=== PATIENT | male | born 1955 | race Caucasian/White ===

== ENCOUNTER 2017-01-24 14:15 | Inpatient (IN) | payer BC, OTHER ==
[~2017-01-24] VITALS: Ht 170.2 cm; Wt 84.8 kg
[~2017-01-24 14:15] MED LIST: AMLO1TAB PO; ASP81TEC PO; AVOD0.5CAP PO
--- OUTSIDE RECORDS SUMMARY | 2017-01-24 14:21 | XMS REPORT ---
Author Author FRANKIE RANKIN Organization eClinicalWorks Address Unknown Phone Unavailable Care Team Providers Care Customer Care Voice Consultant Name Role Phone FRANKIE RANKIN CP Unavailable Allergies No Known Allergies Problems Problem Type Condition ICD-9 Code Onset Dates Condition Status Problem Unspecified local infection of skin and subcutaneous tissue 686.9 Active Problem Cellulitis and abscess of trunk 682.2 Active Problem Lumbago 724.2 Active Problem Unspecified essential hypertension 401.9 Active Problem Other and unspecified hyperlipidemia 272.4 Active Problem Pain in joint, ankle and foot 719.47 Active Problem Elevated prostate specific antigen (PSA) 790.93 Active Problem Need for prophylactic vaccination and inoculation, Influenza V04.81 Active Problem Cough 786.2 Active Problem Other general medical examination for administrative purposes V70.3 Active Problem Herpes zoster without mention of complication 053.9 Active Problem Hyperplasia of prostate, unspecified, without urinary obstruction and other lower urinary tract symptoms [LUTS] 600.90 Active Problem Swelling, mass, or lump in head and neck 784.2 Active Assessment Dental examination V72.2 Active Problem Acute pharyngitis 462 Active Medications No Known Medications Procedures Procedure Coding System Code Date Dental no charge CPT-4 D0099 Nov 15, 2014 Results No Known Results Summary Purpose [employer] Submission
--- OUTSIDE RECORDS SUMMARY | 2017-01-24 14:21 | XMS REPORT ---
Author Author BENY ALY Organization eClinical[employer] Address Unknown Phone Unavailable Care Team Providers Care Food Safety Specialist Name Role Phone BENY ALY CP Unavailable Allergies No Known Allergies Problems Problem Type Condition Code Onset Dates Condition Status Problem Dental examination Z01.20 Active Problem Hypertension I10 Active Problem Myalgia M79.1 Active Problem Hyperplasia of prostate, unspecified, without urinary obstruction and other lower urinary tract symptoms [LUTS] 600.90 Active Problem Hyperlipidemia E78.5 Active Problem Anxiety F41.9 Active Medications No Known Medications Vital Signs Date/Time: Jan 16, 2016 Blood Pressure Diastolic 90 mmHg Blood Pressure Systolic 136 mmHg Height 66 in Results No Known Results Summary Purpose eClinicalWorks Submission
--- OUTSIDE RECORDS SUMMARY | 2017-01-24 14:21 | XMS REPORT ---
Author Author BENY ALY [facility] Address [address] [place] [address] Care Team Providers Care Allocations Clerk Name Role Phone BENY ALY Unavailable PROBLEMS Type Condition ICD9-CM Code [id number] Code Onset Dates Condition Status SNOMED Code Problem Anxiety F41.9 Active 23993291 Problem Benign non-nodular prostatic hyperplasia with lower urinary tract symptoms N40.1 Active 872666593 Problem Encounter for immunization Z23 Active 471143949 Problem Hyperlipidemia E78.5 Active 25759041 Problem Hypertension I10 Active 42555172 Problem Myalgia M79.1 Active 80331570 Problem Dental examination Z01.20 Active 472288500 ALLERGIES Substance Reaction Event Type Date Status N.K.D.A. Unknown Non Drug Allergy Apr, Unknown SOCIAL HISTORY No smoking Hx information available PLAN OF CARE Activity Details Follow Up 1 Year Reason: VITAL SIGNS Height 66 in 2016-04-06 Weight 194 lbs 2016-04-06 Temperature 98.0 degrees Fahrenheit 2016-04-06 Heart Rate 78 bpm 2016-04-06 Respiratory Rate 20 2016-04-06 BMI 31.31 kg/m2 2016-04-06 Blood pressure systolic 134 mmHg 2016-04-06 Blood pressure diastolic 78 mmHg 2016-04-06 MEDICATIONS Medication Instructions Dosage Frequency Start Date End Date Duration Status Flexeril Active Xanax 0.5 MG 1 tablet by Oral route 2 times per day PRN Feb, Active amitriptyline 25 mg 1-2 tablet by Oral route 1 time per day 24h Feb, Active Atorvastatin Calcium 80 MG Orally Once a day 1 tablet 24h Oct, Active Vitamin D 2000 UNIT Orally Once a day 1 tablet 24h Active Avodart 0.5 MG Orally Once a day 1 capsule 24h 30 Active Aspir-81 81 MG Orally Once a day 1 tablet 24h Active Amlodipine Besylate 10 mg Orally Once a day 1 tablet 24h Oct, 30 day(s) Active Cialis 5 MG 1 tablet Apr, 2 Oct, 2016 30 day(s) Active RESULTS No Results PROCEDURES Procedure Date Ordered Related Diagnosis Body Site Office Visit, Est Pt., Level 3 Apr 06, 2016 IMMUNIZATIONS No Known Immunizations
--- OUTSIDE RECORDS SUMMARY | 2017-01-24 14:21 | XMS REPORT ---
Author Author DOMITILA ANDERSEN [facility] Address [address] [place] [address] Care Team Providers Care Residential Real Estate Sales Manager Name Role Phone ANDERSEN DOMITILA Unavailable PROBLEMS Type Condition ICD9-CM Code [id number] Code Onset Dates Condition Status SNOMED Code Problem Anxiety F41.9 Active 19095214 Problem Benign non-nodular prostatic hyperplasia with lower urinary tract symptoms N40.1 Active 151958924 Problem Encounter for immunization Z23 Active 119806209 Problem Hyperlipidemia E78.5 Active 98462773 Problem Hypertension I10 Active 56423831 Problem Myalgia M79.1 Active 40401865 Problem Dental examination Z01.20 Active 068719399 ALLERGIES Substance Reaction Event Type Date Status N.K.D.A. Unknown Non Drug Allergy Apr, Unknown SOCIAL HISTORY No smoking Hx information available PLAN OF CARE Activity Details Follow Up 6 Months Reason:topher VITAL SIGNS Blood pressure systolic 121 mmHg 2016-04-09 Blood pressure diastolic 76 mmHg 2016-04-09 MEDICATIONS Medication Instructions Dosage Frequency Start Date End Date Duration Status amitriptyline 25 mg 1-2 tablet by Oral route 1 time per day 24h Feb, Active Xanax 0.5 MG 1 tablet by Oral route 2 times per day PRN Feb, Active Aspir-81 81 MG Orally Once a day 1 tablet 24h Active Avodart 0.5 MG Orally Once a day 1 capsule 24h 30 Active Vitamin D 2000 UNIT Orally Once a day 1 tablet 24h Active Flexeril Active Atorvastatin Calcium 80 MG Orally Once a day 1 tablet 24h Oct, Active Cialis 5 MG 1 tablet Apr, Oct, 30 day(s) Active Amlodipine Besylate 10 mg Orally Once a day 1 tablet 24h Oct, 30 day(s) Active RESULTS No Results PROCEDURES Procedure Date Ordered Related Diagnosis Body Site PROPHYLAXIS - ADULT Apr 09, 2016 Billing Notes on claim Apr 09, 2016 [employer] Employee/Board adjustment Apr 09, 2016 IMMUNIZATIONS No Known Immunizations
--- OUTSIDE RECORDS SUMMARY | 2017-01-24 14:21 | XMS REPORT ---
Author Author SIMON ROY [facility] eClinicalWorks Address Unknown Phone Unavailable Care Team Providers Care Camera Supervisor Name Role Phone SIMON ROY CP Unavailable Allergies, Adverse Reactions, Alerts Substance Reaction Event Type N.K.D.A. Info Not Available Non Drug Allergy Problems Problem Type Condition Code Onset Dates Condition Status Problem Other and unspecified hyperlipidemia 272.4 Active Problem Lumbago 724.2 Active Problem Unspecified essential hypertension 401.9 Active Problem Hyperplasia of prostate, unspecified, without urinary obstruction and other lower urinary tract symptoms [LUTS] 600.90 Active Assessment Strain of muscle, fascia and tendon of lower back, subsequent encounter S39.012D Active Medications Medication Code System Code Instructions Start Date End Date Status Dosage Xanax [facility] [address]-03 0.5 MG 1 TAB orally 2 times a day Feb 22, 2014 1 tablet by Oral route 2 times per day PRN amitriptyline [facility] [address]-65 25 mg Feb 26, 2014 1-2 tablet by Oral route 1 time per day Avodart [facility] [address]-03 0.5 MG Orally Once a day 1 capsule Aspir-[address] [facility] [address]-71 81 MG Orally Once a day 1 tablet Caduet [facility] [address]-22 10-80 MG Orally Once a day 1 tablet Vitamin D [facility] [address]-97 1000 UNIT Orally Once a day 1 tablet Cyclobenzaprine HCl [facility] [address]-09 10 MG Orally Three times a day JanMar 05, 2015 1 tablet Procedures Procedure Coding System Code Date Office Visit, Est Pt., Level 3 CPT-4 64422 Jan 04, 2015 Vital Signs Date/Time: Jan 04, 2015 Temperature 97.5 F Weight 200.5 lbs Height 66 in BMI 32.36 Index Blood Pressure Diastolic 82 mmHg Blood Pressure Systolic 118 mmHg Cardiac Monitoring Heart Rate 80 bpm Results No Known Results Summary Purpose eClinicalWorks Submission
--- OUTSIDE RECORDS SUMMARY | 2017-01-24 14:21 | XMS REPORT ---
Author Author BENY ALY [facility] eClinicalWorks Address Unknown Phone Unavailable Care Team Providers Care Picture Frames Inspector Name Role Phone BENY ALY CP Unavailable Allergies No Known Allergies Problems Problem Type Condition Code Onset Dates Condition Status Problem Dental examination Z01.20 Active Problem Hypertension I10 Active Problem Myalgia M79.1 Active Problem Hyperplasia of prostate, unspecified, without urinary obstruction and other lower urinary tract symptoms [LUTS] 600.90 Active Problem Hyperlipidemia E78.5 Active Problem Anxiety F41.9 Active Medications Medication Code System Code Instructions Start Date End Date Status Dosage Levaquin [facility] [address]-38 500 MG Orally Once a day October 14, 2015October 1 tablet Results No Known Results Summary Purpose eClinicalWorks Submission
--- OUTSIDE RECORDS SUMMARY | 2017-01-24 14:21 | XMS REPORT ---
Author Author FRANKIE RANKIN Organization eClinicalWorks Address Unknown Phone Unavailable Care Team Providers Care Agent Telegrapher Name Role Phone FRANKIE RANKIN CP Unavailable [...] Medications Procedures Procedure Coding System Code Date Billing Notes on claim CPT-4 EC109 Dec 04, 2014 [employer] Employee/Board adjustment CPT-4 [facility] Dec 04, 2014 Dental no charge CPT-4 D0099 Dec 04, 2014 Results No Known Results Summary Purpose eClinicalWorks Submission
--- OUTSIDE RECORDS SUMMARY | 2017-01-24 14:22 | XMS REPORT ---
Author Author BENY ALY [facility] eClinicalWorks Address Unknown Phone Unavailable Care Team Providers Care Director Of Market Analysis Name Role Phone BENY ALY CP Unavailable Allergies No Known Allergies Problems Problem Type Condition Code Onset Dates Condition Status Problem Other and unspecified hyperlipidemia 272.4 Active Problem Lumbago 724.2 Active Problem Unspecified essential hypertension 401.9 Active Problem Hyperplasia of prostate, unspecified, without urinary obstruction and other lower urinary tract symptoms [LUTS] 600.90 Active Medications Medication Code System Code Instructions Start Date End Date Status Dosage Xanax [facility] [address]-38 0.5 MG 1 TAB orally 2 times a day Feb 22, 2014 1 tablet by Oral route 2 times per day PRN Amlodipine Besylate [facility] [address]-80 10 MG Orally Once a day Mar 31, 2015 1 tablet Atorvastatin Calcium [facility] [address]-07 80 MG Orally Once a day Mar 31, 2015 1 tablet Results No Known Results Summary Purpose eClinicalWorks Submission
--- OUTSIDE RECORDS SUMMARY | 2017-01-24 14:22 | XMS REPORT ---
Author Author BENY ALY [facility] eClinicalWorks Address Unknown Phone Unavailable Care Team Providers Care Caravan Park And Camping Ground Manager Name Role Phone BENY ALY CP Unavailable [...] Instructions Start Date End Date Status Dosage Hydrocodone-Acetaminophen [facility] [address]-71 5-325 MG Orally every 6 hrs Feb 06, 2015 1 tablet as needed Results No Known Results Summary Purpose eClinicalWorks Submission
--- OUTSIDE RECORDS SUMMARY | 2017-01-24 14:22 | XMS REPORT ---
Author Author FRANKIE RANKIN Organization eClinicalWorks Address Unknown Phone Unavailable Care Team Providers Care Service Administrator Name Role Phone FRANKIE RANKIN CP Unavailable [...] Date Dental no charge CPT-4 D0099 Nov 08, 2014 Results No Known Results Summary Purpose [employer] Submission
--- OUTSIDE RECORDS SUMMARY | 2017-01-24 14:22 | XMS REPORT ---
Author Author BENY ALY [facility] eClinicalWorks Address Unknown Phone Unavailable Care Team Providers Care Team Cdl Driver Name Role Phone BENY ALY CP Unavailable Allergies No Known Allergies Problems Problem Type Condition Code Onset Dates Condition Status Problem Other and unspecified hyperlipidemia 272.4 Active Problem Lumbago 724.2 Active Problem Unspecified essential hypertension 401.9 Active Problem Hyperplasia of prostate, unspecified, without urinary obstruction and other lower urinary tract symptoms [LUTS] 600.90 Active Assessment Needs flu shot Z23 Active Medications No Known Medications Procedures Procedure Coding System Code Date SINGLE IMMUNIZATION ADMIN CPT-4 37927 Jan 08, 2015 FLUARIX QUAD (3 & UP)-GSK-2014 CPT-4 26333 Jan 08, 2015 Results No Known Results Immunizations Vaccine Administration Date FLUARIX QUAD (3 & UP)-GSK-2014Jan 08, 2015 Summary Purpose eClinicalWorks Submission
--- OUTSIDE RECORDS SUMMARY | 2017-01-24 14:22 | XMS REPORT ---
Author Author EVANGELINA HIGGINS Organization eClinicalWorks Address Unknown Phone Unavailable Care Team Providers Care Traffic Agent Name Role Phone EVANGELINA HIGGINS CP Unavailable Allergies No Known Allergies Problems [...] Date Dental no charge CPT-4 D0099 Nov 11, 2014 Results No Known Results Summary Purpose eClinicalWorks Submission
--- OUTSIDE RECORDS SUMMARY | 2017-01-24 14:22 | XMS REPORT ---
Author Author BENY ALY [facility] eClinicalWorks Address Unknown Phone Unavailable Care Team Providers Care Salvager Name Role Phone BENY ALY CP Unavailable [...] in head and neck 784.2 Active Assessment Unspecified essential hypertension 401.9 Active Problem Acute pharyngitis 462 Active Medications No Known Medications Procedures Procedure Coding System Code Date ASSAY OF PSA, TOTAL CPT-4 11601 Dec 17, 2014 LIPID PANEL CPT-4 42071 Dec 17, 2014 COMPREHEN METABOLIC PANEL CPT-4 62265 Dec 17, 2014 VENIPUNCT, ROUTINE* CPT-4 34318 Dec 17, 2014 Results No Known Results Summary Purpose eClinicalWorks Submission
--- OUTSIDE RECORDS SUMMARY | 2017-01-24 14:22 | XMS REPORT ---
Author Author MARTI ANN [facility] eClinicalWorks Address Unknown Phone Unavailable Care Team Providers Care Air Tube Releaser Name Role Phone MARTI ANN CP Unavailable Allergies, Adverse Reactions, Alerts Substance Reaction Event Type N.K.D.A. Info Not Available Non Drug Allergy Problems Problem Type Condition Code Onset Dates Condition Status Problem Hyperplasia of prostate, unspecified, without urinary obstruction and other lower urinary tract symptoms [LUTS] 600.90 Active Assessment Acute upper respiratory infection, unspecified J06.9 Active Problem Hypertension I10 Active Problem Hyperlipidemia E78.5 Active Problem Dental examination Z01.20 Active Problem Other and unspecified hyperlipidemia 272.4 Active Problem Lumbago 724.2 Active Problem Anxiety F41.9 Active Problem Unspecified essential hypertension 401.9 Active Medications Medication Code System Code Instructions Start Date End Date Status Dosage Aspir-[address] [facility] [address]-58 81 MG Orally Once a day 1 tablet Vitamin D [facility] [address]-44 1000 UNIT Orally Once a day 1 tablet Promethazine-Codeine [facility] [address]-53 6.25-10 MG/5ML Orally every 6 hrs October 08, 2015 5 ml as needed Atorvastatin Calcium [facility] [address]-54 80 MG Orally Once a day October 29, [address] [facility] [address]-88 25 mg Once a day Feb 26, 2014 1-2 tablet by Oral route 1 time per day Xanax [facility] [address]-29 0.5 MG 1 TAB orally 2 times a day Feb 22, 2014 1 tablet by Oral route 2 times per day PRN Amlodipine Besylate [facility] [address]-84 10 MG Orally Once a day October 29, [address] [facility] [address]-79 10 MG Orally Once a day October 29, [address] [facility] [address]-33 0.5 MG Orally Once a day 1 capsule Procedures Procedure Coding System Code Date Office Visit, Est Pt., Level 3 CPT-4 30242 October 08, 2015 Vital Signs Date/Time: October 08, 2015 Cardiac Monitoring Heart Rate 88 bpm Weight 178.8 lbs Height 66 in Blood Pressure Diastolic 80 mmHg Blood Pressure Systolic 120 mmHg Results No Known Results Summary Purpose eClinicalWorks Submission
--- OUTSIDE RECORDS SUMMARY | 2017-01-24 14:22 | XMS REPORT ---
Author Author LINWOOD REED eClinicalWorks Address Unknown Phone Unavailable Care Team Providers Care Compliance Technician Name Role Phone LINWOOD REED CP Unavailable Allergies, Adverse Reactions, Alerts Substance Reaction Event Type N.K.D.A. Info Not Available Non Drug Allergy Problems Problem Type Condition Code Onset Dates Condition Status Problem Dental examination Z01.20 Active Problem Hypertension I10 Active Problem Myalgia M79.1 Active Problem Hyperplasia of prostate, unspecified, without urinary obstruction and other lower urinary tract symptoms [LUTS] 600.90 Active Assessment Dental examination Z01.20 Active Problem Hyperlipidemia E78.5 Active Problem Anxiety F41.9 Active Medications Medication Code System Code Instructions Start Date End Date Status Dosage Aspir-81 [facility] [address]-50 81 MG Orally Once a day 1 tablet Vitamin D [facility] [address]-25 1000 UNIT Orally Once a day 1 tablet Promethazine-Codeine [facility] [address]-28 6.25-10 MG/5ML Orally every 6 hrs October 08, 2015 5 ml as needed Levaquin [facility] [address]-88 500 MG Orally Once a day October 14, 2015October 1 tablet Avodart [facility] [address]-67 0.5 MG Orally Once a day 1 capsule Amlodipine Besylate [facility] [address]-95 10 MG Orally Once a day October 29, 2014 1 tablet Xanax [facility] [address]-42 0.5 MG 1 TAB orally 2 times a day Feb 22, 2014 1 tablet by Oral route 2 times per day PRN amitriptyline [facility] [address]-48 25 mg Once a day Feb 26, 2014 1-2 tablet by Oral route 1 time per day Atorvastatin Calcium [facility] [address]-53 80 MG Orally Once a day October 29, 2014 1 tablet Procedures Procedure Coding System Code Date Billing Notes on claim CPT-4 EC109 October 14, 2015 AMALGAM-TWO SURFACES PRIMARY/PERM CPT-4 D2150 October 14, 2015 Vital Signs Date/Time: October 14, 2015 Blood Pressure Diastolic 64 mmHg Blood Pressure Systolic 113 mmHg Results No Known Results Summary Purpose eClinicalWorks Submission
--- OUTSIDE RECORDS SUMMARY | 2017-01-24 14:22 | XMS REPORT ---
Author Author BENY ALY [facility] eClinicalWorks Address Unknown Phone Unavailable Care Team Providers Care Bread And Pastry Baker Name Role Phone BENY ALY CP Unavailable Allergies, Adverse Reactions, Alerts Substance Reaction Event Type N.K.D.A. Info Not Available Non Drug Allergy Problems Problem Type Condition Code Onset Dates Condition Status Problem Dental examination Z01.20 Active Problem Hypertension I10 Active Problem Myalgia M79.1 Active Problem Hyperplasia of prostate, unspecified, without urinary obstruction and other lower urinary tract symptoms [LUTS] 600.90 Active Assessment Myalgia M79.1 Active Problem Hyperlipidemia E78.5 Active Problem Anxiety F41.9 Active Medications Medication Code System Code Instructions Start Date End Date Status Dosage Promethazine-Codeine [facility] [address]-61 6.25-10 MG/5ML Orally every 6 hrs October 08, 2015 5 ml as needed Avodart [facility] [address]-16 0.5 MG Orally Once a day 1 capsule Aspir-81 [facility] [address]-55 81 MG Orally Once a day 1 tablet Atorvastatin Calcium [facility] [address]-20 80 MG Orally Once a day October 29, 2014 1 tablet Amlodipine Besylate [facility] [address]-21 10 MG Orally Once a day October 29, 2014 1 tablet Xanax [facility] [address]-31 0.5 MG 1 TAB orally 2 times a day Feb 22, 2014 1 tablet by Oral route 2 times per day PRN amitriptyline [facility] [address]-52 25 mg Once a day Feb 26, 2014 1-2 tablet by Oral route 1 time per day Vitamin D [facility] [address]-77 1000 UNIT Orally Once a day 1 tablet Procedures Procedure Coding System Code Date COMPLETE CBC W/AUTO DIFF WBC CPT-4 24442 October 13, 2015 VENIPUNCT, ROUTINE* CPT-4 81847 October 13, 2015 C-REACTIVE PROTEIN CPT-4 84856 October 13, 2015 Office Visit, Est Pt., Level 2 CPT-4 97905 October 13, 2015 Vital Signs Date/Time: October 13, 2015 Cardiac Monitoring Heart Rate 82 bpm Weight 178 lbs Height 66 in Blood Pressure Diastolic 78 mmHg Blood Pressure Systolic 118 mmHg Results No Known Results Summary Purpose eClinicalWorks Submission
--- OUTSIDE RECORDS SUMMARY | 2017-01-24 14:22 | XMS REPORT ---
Author Author MARTI ANN [facility] eClinicalWorks Address Unknown Phone Unavailable Care Team Providers Care Spinner Box Name Role Phone MARTI ANN CP Unavailable Allergies No Known Allergies Problems Problem Type Condition Code Onset Dates Condition Status Assessment Encounter for immunization Z23 Active Problem Myalgia M79.1 Active Problem Dental examination Z01.20 Active Problem Encounter for immunization Z23 Active Problem Anxiety F41.9 Active Problem Hyperplasia of prostate, unspecified, without urinary obstruction and other lower urinary tract symptoms [LUTS] 600.90 Active Problem Hypertension I10 Active Problem Hyperlipidemia E78.5 Active Medications No Known Medications Procedures Procedure Coding System Code Date SINGLE IMMUNIZATION ADMIN CPT-4 27975 Feb 03, 2016 FLUARIX QUAD P-FREE 3 AND UP .50 2015 CPT-4 38164 Feb 03, 2016 Results No Known Results Immunizations Vaccine Administration Date FLUARIX QUAD P-FREE 3 AND UP .50 2015Feb 03, 2016 Summary Purpose eClinicalWorks Submission
--- OUTSIDE RECORDS SUMMARY | 2017-01-24 14:22 | XMS REPORT ---
Author Author BENY ALY [facility] Address [address] [place] [address] Care Team Providers Care Fire Prevention Officer Name Role Phone BENY ALY Unavailable PROBLEMS Type Condition ICD9-CM Code [id number] Code Onset Dates Condition Status SNOMED Code Problem Anxiety F41.9 Active 86920287 Problem Benign non-nodular prostatic hyperplasia with lower urinary tract symptoms N40.1 Active 740071350 Problem Encounter for immunization Z23 Active 976033660 Problem Hyperlipidemia E78.5 Active 21433062 Problem Hypertension I10 Active 23036902 Problem Myalgia M79.1 Active 40636699 Problem Dental examination Z01.20 Active 770582555 ALLERGIES No Known Allergies SOCIAL HISTORY No smoking Hx information available PLAN OF CARE VITAL SIGNS MEDICATIONS No Known Medications RESULTS Name Result Date Reference Range PSA 2016-04-09 Prostate Specific Ag, Serum 1.3 0.0-4.0 CMP 2016-04-09 Glucose, Serum 87 65-99 BUN 13 6-24 Creatinine, Serum 1.07 0.76-1.27 eGFR If NonAfricn Am 76 >59 eGFR If Africn Am 87 >59 BUN/Creatinine Ratio 12 9-20 Sodium, Serum 144 134-144 Potassium, Serum 5.0 3.5-5.2 Chloride, Serum 101 96-106 Carbon Dioxide, Total 26 18-29 Calcium, Serum 9.7 8.7-10.2 Protein, Total, Serum 7.0 6.0-8.5 Albumin, Serum 4.4 3.5-5.5 Globulin, Total 2.6 1.5-4.5 A/G Ratio 1.7 1.1-2.5 Bilirubin, Total 0.4 0.0-1.2 Alkaline Phosphatase, S 76 39-117 AST (SGOT) 24 0-40 ALT (SGPT) 25 0-44 LIPID PANEL 2016-04-09 Cholesterol, Total 187 100-199 Triglycerides 165 0-149 HDL Cholesterol 50 >39 VLDL Cholesterol [place] 33 5-40 LDL Cholesterol Calc 104 0-99 PROCEDURES Procedure Date Ordered Related Diagnosis Body Site LIPID PANEL Apr 09, 2016 ASSAY OF PSA, TOTAL Apr 09, 2016 VENIPUNCT, ROUTINE* Apr 09, 2016 COMPREHEN METABOLIC PANEL Apr 09, 2016 IMMUNIZATIONS No Known Immunizations
--- OUTSIDE RECORDS SUMMARY | 2017-01-24 14:23 | XMS REPORT | Continuity of Care Document ---
Author Author [facility] Organization [facility] Address Unknown Phone Unavailable Allergies Active Description Code Type Severity Reaction Onset Reported/Identified Relationship to Patient Clinical Status Yes No Known Drug Allergies [id number] Drug Allergy Unknown N/ A 08/17/2013 Medications Problems Date Dx Coded Attending Type Code Diagnosis Diagnosed By 05/25/2008 300.00 ANXIETY DISORDER NOS 05/25/2008 300.00 ANXIETY DISORDER NOS 05/25/2008 300.00 ANXIETY DISORDER NOS 05/25/2008 WENDY GILLILAND DO 300.00 ANXIETY DISORDER NOS 05/25/2008 MARTI ANN APRN 300.00 ANXIETY DISORDER NOS 05/25/2008 BENY ALY MD 300.00 ANXIETY DISORDER NOS 05/25/2008 JEFFREY MONTELONGO APRN 300.00 ANXIETY DISORDER NOS 05/25/2008 WENDY GILLILAND DO 300.00 ANXIETY DISORDER NOS 05/25/2008 BENY ALY MD 300.00 ANXIETY DISORDER NOS 07/30/2009 V70.0 GENERAL MEDICAL EXAM, ROUTINE, AT HEALTH CARE FACILITY 07/30/2009 V70.0 GENERAL MEDICAL EXAM, ROUTINE, AT HEALTH CARE FACILITY 07/30/2009 V70.0 GENERAL MEDICAL EXAM, ROUTINE, AT HEALTH CARE FACILITY 07/30/2009 WENDY GILLILAND DO V70.0 GENERAL MEDICAL EXAM, ROUTINE, AT HEALTH CARE FACILITY 07/30/2009 MARTI ANN APRN V70.0 GENERAL MEDICAL EXAM, ROUTINE, AT HEALTH CARE FACILITY 07/30/2009 BENY ALY MD V70.0 GENERAL MEDICAL EXAM, ROUTINE, AT HEALTH CARE FACILITY 07/30/2009 JEFFREY MONTELONGO APRN V70.0 GENERAL MEDICAL EXAM, ROUTINE, AT HEALTH CARE FACILITY 07/30/2009 WENDY GILLILAND DO V70.0 GENERAL MEDICAL EXAM, ROUTINE, AT HEALTH CARE FACILITY 07/30/2009 BENY ALY MD V70.0 GENERAL MEDICAL EXAM, ROUTINE, AT HEALTH CARE FACILITY 02/25/2010 465.9 Upper Respiratory Infection 02/25/2010 465.9 Upper Respiratory Infection 02/25/2010 465.9 Upper Respiratory Infection 02/25/2010 WENDY GILLILAND DO 465.9 Upper Respiratory Infection 02/25/2010 MARTI ANN APRN 465.9 Upper Respiratory Infection 02/25/2010 BENY ALY MD 465.9 Upper Respiratory Infection 02/25/2010 JEFFREY MONTELONGO APRN S 465.9 Upper Respiratory Infection 02/25/2010 WENDY GILLILAND DO K 465.9 Upper Respiratory Infection 02/25/2010 BENY ALY MD 465.9 Upper Respiratory Infection 05/13/2010 883.0 Open Wound Of Fingers Without Complication 05/13/2010 883.0 Open Wound Of Fingers Without Complication 05/13/2010 883.0 Open Wound Of Fingers Without Complication 05/13/2010 WENDY GILLILAND DO 883.0 Open Wound Of Fingers Without Complication 05/13/2010 MARTI ANN APRN 883.0 Open Wound Of Fingers Without Complication 05/13/2010 BENY ALY MD 883.0 Open Wound Of Fingers Without Complication 05/13/2010 JEFFREY MONTELONGO APRN S 883.0 Open Wound Of Fingers Without Complication 05/13/2010 WENDY GILLILAND DO 883.0 Open Wound Of Fingers Without Complication 05/13/2010 BENY ALY MD 883.0 Open Wound Of Fingers Without Complication 02/27/2011 681.02 Onychia And Paronychia Of Finger 02/27/2011 681.02 Onychia And Paronychia Of Finger 02/27/2011 681.02 Onychia And Paronychia Of Finger 02/27/2011 WENDY GILLILAND DO 681.02 Onychia And Paronychia Of Finger 02/27/2011 MARTI ANN APRN 681.02 Onychia And Paronychia Of Finger 02/27/2011 BENY ALY MD 681.02 Onychia And Paronychia Of Finger 02/27/2011 JEFFREY MONTELONGO APRN S 681.02 Onychia And Paronychia Of Finger 02/27/2011 WENDY GILLILAND DO 681.02 Onychia And Paronychia Of Finger 02/27/2011 BENY ALY MD 681.02 Onychia And Paronychia Of Finger 04/30/2011 272.4 OTHER AND UNSPECIFIED HYPERLIPIDEMIA 04/30/2011 600.90 HYPERPLASIA OF PROSTATE UNSPECIFIED WITHOUT URINARY OBSTRUCTION AND OTHER LOWER URINARY TRACT SYMPTOMS (LUTS) 04/30/2011 272.4 OTHER AND UNSPECIFIED HYPERLIPIDEMIA 04/30/2011 600.90 HYPERPLASIA OF PROSTATE UNSPECIFIED WITHOUT URINARY OBSTRUCTION AND OTHER LOWER URINARY TRACT SYMPTOMS (LUTS) 04/30/2011 272.4 OTHER AND UNSPECIFIED HYPERLIPIDEMIA 04/30/2011 600.90 HYPERPLASIA OF PROSTATE UNSPECIFIED WITHOUT URINARY OBSTRUCTION AND OTHER LOWER URINARY TRACT SYMPTOMS (LUTS) 04/30/2011 WENDY GILLILAND DO K 272.4 OTHER AND UNSPECIFIED HYPERLIPIDEMIA 04/30/2011 WENDY GILLILAND DO K 600.90 HYPERPLASIA OF PROSTATE UNSPECIFIED WITHOUT URINARY OBSTRUCTION AND OTHER LOWER URINARY TRACT SYMPTOMS (LUTS) 04/30/2011 MARTI ANN APRN 272.4 OTHER AND UNSPECIFIED HYPERLIPIDEMIA 04/30/2011 MARTI ANN APRN 600.90 HYPERPLASIA OF PROSTATE UNSPECIFIED WITHOUT URINARY OBSTRUCTION AND OTHER LOWER URINARY TRACT SYMPTOMS (LUTS) 04/30/2011 BENY ALY MD 272.4 OTHER AND UNSPECIFIED HYPERLIPIDEMIA 04/30/2011 BENY ALY MD 600.90 HYPERPLASIA OF PROSTATE UNSPECIFIED WITHOUT URINARY OBSTRUCTION AND OTHER LOWER URINARY TRACT SYMPTOMS (LUTS) 04/30/2011 JEFFREY MONTELONGO APRN S 272.4 OTHER AND UNSPECIFIED HYPERLIPIDEMIA 04/30/2011 JEFFREY MONTELONGO APRN S 600.90 HYPERPLASIA OF PROSTATE UNSPECIFIED WITHOUT URINARY OBSTRUCTION AND OTHER LOWER URINARY TRACT SYMPTOMS (LUTS) 04/30/2011 WENDY GILLILAND DO 272.4 OTHER AND UNSPECIFIED HYPERLIPIDEMIA 04/30/2011 WENDY GILLILAND DO K 600.90 HYPERPLASIA OF PROSTATE UNSPECIFIED WITHOUT URINARY OBSTRUCTION AND OTHER LOWER URINARY TRACT SYMPTOMS (LUTS) 04/30/2011 BENY ALY MD 272.4 OTHER AND UNSPECIFIED HYPERLIPIDEMIA 04/30/2011 BENY ALY MD 600.90 HYPERPLASIA OF PROSTATE UNSPECIFIED WITHOUT URINARY OBSTRUCTION AND OTHER LOWER URINARY TRACT SYMPTOMS (LUTS) 05/07/2011 272.4 OTHER AND UNSPECIFIED HYPERLIPIDEMIA 05/07/2011 401.9 UNSPECIFIED ESSENTIAL HYPERTENSION 05/07/2011 272.4 OTHER AND UNSPECIFIED HYPERLIPIDEMIA 05/07/2011 401.9 UNSPECIFIED ESSENTIAL HYPERTENSION 05/07/2011 272.4 OTHER AND UNSPECIFIED HYPERLIPIDEMIA 05/07/2011 401.9 UNSPECIFIED ESSENTIAL HYPERTENSION 05/07/2011 GILLILAND DO, WENDY K 272.4 OTHER AND UNSPECIFIED HYPERLIPIDEMIA 05/07/2011 GILLILAND DO, WENDY K 401.9 UNSPECIFIED ESSENTIAL HYPERTENSION 05/07/2011 MARTI ANN APRN 272.4 OTHER AND UNSPECIFIED HYPERLIPIDEMIA 05/07/2011 MARTI ANN APRN 401.9 UNSPECIFIED ESSENTIAL HYPERTENSION 05/07/2011 BENY ALY MD 272.4 OTHER AND UNSPECIFIED HYPERLIPIDEMIA 05/07/2011 BENY ALY MD 401.9 UNSPECIFIED ESSENTIAL HYPERTENSION 05/07/2011 JEFFREY MONTELONGO APRN S 272.4 OTHER AND UNSPECIFIED HYPERLIPIDEMIA 05/07/2011 JEFFREY MONTELONGO APRN S 401.9 UNSPECIFIED ESSENTIAL HYPERTENSION 05/07/2011 GILLILAND DO WENDY K 272.4 OTHER AND UNSPECIFIED HYPERLIPIDEMIA 05/07/2011 GILLILAND DO WENDY K 401.9 UNSPECIFIED ESSENTIAL HYPERTENSION 05/07/2011 BENY ALY MD 272.4 OTHER AND UNSPECIFIED HYPERLIPIDEMIA 05/07/2011 BENY ALY MD 401.9 UNSPECIFIED ESSENTIAL HYPERTENSION 05/26/2011 462 sore throat 05/26/2011 462 sore throat 05/26/2011 462 sore throat 05/26/2011 GILLILAND DO, WENDY K 462 sore throat 05/26/2011 MARTI ANN APRN 462 sore throat 05/26/2011 BENY ALY MD 462 SORE THROAT 05/26/2011 JEFFREY MONTELONGO APRN S 462 SORE THROAT 05/26/2011 GILLILAND DO WENDY K 462 SORE THROAT 05/26/2011 BENY ALY MD 462 SORE THROAT 06/09/2011 786.2 COUGH 06/09/2011 786.2 COUGH 06/09/2011 786.2 COUGH 06/09/2011 GILLILAND DO WENDY K 786.2 COUGH 06/09/2011 MARTI ANN APRN 786.2 COUGH 06/09/2011 BENY ALY MD 786.2 COUGH 06/09/2011 JEFFREY MONTELONGO APRN S 786.2 COUGH 06/09/2011 GILLILAND DO WENDY K 786.2 COUGH 06/09/2011 BENY ALY MD 786.2 COUGH 08/12/2011 V70.3 OTHER GENERAL MEDICAL EXAMINATION FOR ADMINISTRATIVE PURPOSES 08/12/2011 V70.3 OTHER GENERAL MEDICAL EXAMINATION FOR ADMINISTRATIVE PURPOSES 08/12/2011 V70.3 OTHER GENERAL MEDICAL EXAMINATION FOR ADMINISTRATIVE PURPOSES 08/12/2011 WENDY GILLILAND DO V70.3 OTHER GENERAL MEDICAL EXAMINATION FOR ADMINISTRATIVE PURPOSES 08/12/2011 MARTI ANN APRN V70.3 OTHER GENERAL MEDICAL EXAMINATION FOR ADMINISTRATIVE PURPOSES 08/12/2011 BENY ALY MD V70.3 OTHER GENERAL MEDICAL EXAMINATION FOR ADMINISTRATIVE PURPOSES 08/12/2011 JEFFREY MONTELONGO APRN V70.3 OTHER GENERAL MEDICAL EXAMINATION FOR ADMINISTRATIVE PURPOSES 08/12/2011 WENDY GILLILAND DO V70.3 OTHER GENERAL MEDICAL EXAMINATION FOR ADMINISTRATIVE PURPOSES 08/12/2011 BENY ALY MD V70.3 OTHER GENERAL MEDICAL EXAMINATION FOR ADMINISTRATIVE PURPOSES 09/02/2011 053.9 HERPES ZOSTER (SHINGLES) 09/02/2011 053.9 HERPES ZOSTER (SHINGLES) 09/02/2011 053.9 HERPES ZOSTER (SHINGLES) 09/02/2011 WENDY GILLILAND DO 053.9 HERPES ZOSTER (SHINGLES) 09/02/2011 MARTI ANN APRN 053.9 HERPES ZOSTER (SHINGLES) 09/02/2011 BENY ALY MD 053.9 HERPES ZOSTER (SHINGLES) 09/02/2011 JEFFREY MONTELONGO APRN 053.9 HERPES ZOSTER (SHINGLES) 09/02/2011 WENDY GILLILAND DO 053.9 HERPES ZOSTER (SHINGLES) 09/02/2011 BENY ALY MD 053.9 HERPES ZOSTER (SHINGLES) 11/23/2011 724.2 LUMBAGO 11/23/2011 724.2 LUMBAGO 11/23/2011 724.2 LUMBAGO 11/23/2011 WENDY GILLILAND DO 724.2 LUMBAGO 11/23/2011 MARTI ANN APRN 724.2 LUMBAGO 11/23/2011 BENY ALY MD 724.2 LUMBAGO 11/23/2011 JEFFREY MONTELONGO APRN 724.2 LUMBAGO 11/23/2011 WENDY GILLILAND DO 724.2 LUMBAGO 11/23/2011 BENY ALY MD 724.2 LUMBAGO 12/21/2011 682.2 CELLULITIS AND ABSCESS OF TRUNK 12/21/2011 682.2 CELLULITIS AND ABSCESS OF TRUNK 12/21/2011 682.2 CELLULITIS AND ABSCESS OF TRUNK 12/21/2011 WENDY GILLILAND DO 682.2 CELLULITIS AND ABSCESS OF TRUNK 12/21/2011 MARTI ANN APRN 682.2 CELLULITIS AND ABSCESS OF TRUNK 12/21/2011 BENY ALY MD 682.2 CELLULITIS AND ABSCESS OF TRUNK 12/21/2011 JEFFREY MONTELONGO APRN 682.2 CELLULITIS AND ABSCESS OF TRUNK 12/21/2011 WENDY GILLILAND DO 682.2 CELLULITIS AND ABSCESS OF TRUNK 12/21/2011 BENY ALY MD 682.2 CELLULITIS AND ABSCESS OF TRUNK 01/26/2012 V04.81 FLU DX (3 YRS AND ABOVE, IM) 01/26/2012 V04.81 FLU DX (3 YRS AND ABOVE, IM) 01/26/2012 V04.81 FLU DX (3 YRS AND ABOVE, IM) 01/26/2012 WENDY GILLILAND DO V04.81 FLU DX (3 YRS AND ABOVE, IM) 01/26/2012 MARTI ANN APRN V04.81 FLU DX (3 YRS AND ABOVE, IM) 01/26/2012 BENY ALY MD V04.81 FLU DX (3 YRS AND ABOVE, IM) 01/26/2012 JEFFREY MONTELONGO APRN V04.81 FLU DX (3 YRS AND ABOVE, IM) 01/26/2012 WENDY GILLILAND DO V04.81 FLU DX (3 YRS AND ABOVE, IM) 01/26/2012 BENY ALY MD V04.81 FLU DX (3 YRS AND ABOVE, IM) 08/16/2012 790.93 PSA ELEVATED 08/16/2012 WENDY GILLILAND DO 790.93 PSA ELEVATED 08/16/2012 MARTI ANN APRN 790.93 PSA ELEVATED 08/16/2012 BENY ALY MD 790.93 PSA ELEVATED 08/16/2012 JEFFREY MONTELONGO APRN 790.93 PSA ELEVATED 08/16/2012 WENDY GILLILAND DO 790.93 PSA ELEVATED 08/16/2012 BENY ALY MD 790.93 PSA ELEVATED 08/17/2013 Ot 455.0 08/17/2013 Ot 562.10 08/17/2013 Ot V76.51 09/03/2013 JEFFREY MONTELONGO APRN 719.47 PAIN IN JOINT INVOLVING ANKLE AND FOOT 09/03/2013 WENDY GILLILAND DO 719.47 PAIN IN JOINT INVOLVING ANKLE AND FOOT 09/03/2013 BENY ALY MD 719.47 PAIN IN JOINT INVOLVING ANKLE AND FOOT 01/18/2014 WENDY GILLILAND DO V04.81 FLU SHOT 01/18/2014 BENY ALY MD V04.81 FLU SHOT 02/22/2014 BENY ALY MD 686.9 UNSPECIFIED LOCAL INFECTION OF SKIN AND SUBCUTANEOUS TISSUE 05/30/2014 Ot V72.84 Procedures Code Description [place] [address] ROUTINE VENIPUNCTURE 08/16/2012 24636 PSA TOTAL 2012 G0008 FLU ADMINISTRATION (MEDICARE ONLY) 01/22/2013 Internal Enzo Guy 05/15/2013 99341 XRAY FOOT LEFT COMP MIN 3 VIEWS 09/03/2013 Results Encounters ACCT No. Visit Date/Time Discharge Status Pt. Type Provider Facility Loc./Unit Complaint [id number] 08/17/2013 07:02:00 2013 10:10:00 DIS Outpatient [id number] 08/15/2013 07:21:00 2013 23:59:59 CLS Outpatient [id number] 05/30/2014 10:28:00 Document Registration [id number] 02/22/2014 15:04:00 02/22/2014 23: 59:59 CLS Outpatient BENY ALY MD [id number] 01/18/2014 12:56:00 01/18/2014 23: 59:59 CLS Outpatient WENDY GILLILAND DO [id number] 09/03/2013 12:16:00 09/03/2013 23: 59:59 CLS Outpatient JEFFREY MONTELONGO APRN [id number] 05/15/2013 08:12:00 05/15/2013 23: 59:59 CLS Outpatient BENY ALY MD [id number] 02/06/2013 12:57:00 02/06/2013 23: 59:59 CLS Outpatient MARTI ANN APRN [id number] 01/22/2013 16:13:00 01/22/2013 23: 59:59 CLS Outpatient WENDY GILLILAND DO [id number] 05/05/2012 08:01:00 05/05/2012 23: 59:59 CLS Outpatient [id number] 08/16/2012 13:15:00 Document Registration [id number] 07/19/2012 13:44:00 Document Registration
[2017-01-24 14:49] LABS: BASOPHILS # (AUTO) 0.1 10^3/uL (0.0-0.1); BASOPHILS % (AUTO) 1 % (0-10); EOSINOPHILS # (AUTO) 0.1 10^3/uL (0.0-0.3); EOSINOPHILS % (AUTO) 1 % (0-10); LYMPHOCYTES # (AUTO) 2.7 X 10^3 (1.0-4.0); LYMPHOCYTES % (AUTO) 13 % (12-44); MEAN CORPUSCULAR HEMOGLOBIN 29 PG (25-34); MEAN CORPUSCULAR HGB CONC 33 G/DL (32-36); MEAN CORPUSCULAR VOLUME 89 FL (80-99); MEAN PLATELET VOLUME 9.6 FL (7.4-10.4); MONOCYTES # (AUTO) 1.1 X 10^3 (0.0-1.0); MONOCYTES % (AUTO) 6 % (0-12); NEUTROPHILS % (AUTO) 80 % (42-75); PLATELET COUNT 302 10^3/uL (130-400); RED BLOOD COUNT 2.94 10^6/uL (4.35-5.85); RED CELL DISTRIBUTION WIDTH 12.7 % (10.0-14.5); WHITE BLOOD COUNT 19.9 10^3/uL (4.3-11.0)
[2017-01-24] MEDS ORDERED: ATOR80TA76 PO (14:51)
[2017-01-24] MEDS ORDERED: vit d (14:51)
[2017-01-24] MEDS ORDERED: AMLO10TA2 PO (14:51)
[2017-01-24 15:02] LABS: INR 1.1 (0.8-1.4); PROTHROMBIN TIME PATIENT 14.2 SEC (12.2-14.7)
--- NOTE | 2017-01-24 15:02 | ED GI ---
General Chief Complaint: Abdominal/GI Problems Stated Complaint: MULTIPLE COMPLAINTS Source of Information: Patient Exam Limitations: No Limitations History of Present Illness Time Seen By Provider: 14:25 Initial Comments Here with report of weakness, shortness of breath, significant amount of blood from the rectum over the last 24 hours. States that he's been using ibuprofen for tooth pain over the last week or so although it appears that it's only 4 mg twice daily. Denies having blood from rectum previously. Does have history of polyps on colonoscopy but has never had problems. States his stools are grossly bloody and/or black and he's had approximately 12 bowel movements like this. 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 Patient presents by EMS very pale and weak. Timing/Duration: 24 Hours Severity/Quality: Moderate, Severe Radiation: No Radiation Associated Symptoms: Nausea/Vomiting, Shortness of Air, Weakness Allergies and Home Medications Allergies Coded Allergies: No Known Drug Allergies (Unverified , 08/17/13) Home Medications Amlodipine Besylate 10 Mg Tablet, (Reported) Aspirin 81 Mg Tabec, 81 MG PO DAILY, (Reported) Atorvastatin Calcium 80 Mg Tablet, (Reported) Dutasteride 0.5 Mg Capsule, 0.5 MG PO, (Reported) [vit d] , (Reported) Review of Systems Constitutional: see HPI, chills, No fever, weakness EENTM: No Symptoms Reported Respiratory: See HPI, SOA With Exertion, Denies Wheezing Cardiovascular: Denies Chest Pain, Lightheadedness, Syncope Gastrointestinal: Denies Abdominal Pain, Nausea, Rectal Bleeding, Vomiting Genitourinary: No Symptoms Reported Musculoskeletal: no symptoms reported Skin: see HPI, change in color, No lesions Psychiatric/Neurological: Denies Headache, Weakness Endocrine: No Symptoms Reported Hematologic/Lymphatic: No Symptoms Reported All Other Systems Reviewed Negative Unless Noted: Yes Past Kwoldgg-Rtdhig-Donjps Hx Patient Social History Alcohol Use: Occasionally Uses Recreational Drug Use: No Smoking Status: Current Someday Smoker Type Used: Cigars Recent Foreign Travel: No Contact w/Someone Who Travel: No Immunizations Up To Date Date of Pneumonia Vaccine: Dec 18, 2009 Date of Influenza Vaccine: Jan 17, 2013 Surgeries History of Surgeries: Yes (hernia) Respiratory History of Respiratory Disorde: No Cardiovascular History of Cardiac Disorders: Yes Cardiac Disorders: High Cholesterol, Hypertension Neurological History of Neurological Disord: No Genitourinary History of Genitourinary Disor: Yes Genitourinary Disorders: Prostate Problems Gastrointestinal History of Gastrointestinal Di: No Musculoskeletal History of Musculoskeletal Dis: No Endocrine History of Endocrine Disorders: No Cancer History of Cancer: No Psychosocial History of Psychiatric Problem: No Reviewed Nursing Assessment Reviewed/Agree w Nursing PMH: Yes Family Medical History Significant Family History: No Pertinent Family Hx Physical Exam Vital Signs VS - Last 72 Hours, by Label 01/24/17 01/24/17 14:15 14:15 Temp 97.6 Pulse 92 Resp 18 B/P (MAP) 99/66 Pulse Ox 98 O2 Delivery Room Air Nasal Cannula O2 Flow Rate 2.00 Capillary Refill : General Appearance: WD/WN, mild distress (weakness) HEENT: PERRL/EOMI, pharynx normal, pale conjunctivae (R), pale conjunctivae (L) Neck: full range of motion, supple Respiratory: lungs clear, normal breath sounds Cardiovascular: no murmur, tachycardia Peripheral Pulses: 2+ Dorsalis Pedis (R), 2+ Left Dors-Pedis (L), 2+ Radial Pulses (R), 2+ Radial Pulses (L) Gastrointestinal: non tender, soft Extremities: non-tender, normal inspection Back: normal inspection, no CVA tenderness, no vertebral tenderness Neurologic/Psychiatric: alert, oriented x 3 Skin: warm/dry, pallor Progress/Results/Core Measures Results/Orders Lab Results Laboratory Tests Test 01/24/17 14:40 Range/Units White Blood Count 19.9 H 4.3-11.0 10^3/uL Red Blood Count 2.94 L 4.35-5.85 10^6/uL Hemoglobin 8.5 L 13.3-17.7 G/DL Hematocrit 26 L 40-54 % Mean Corpuscular Volume 89 80-99 FL Mean Corpuscular Hemoglobin 29 25-34 PG Mean Corpuscular Hemoglobin Concent 33 32-36 G/DL Red Cell Distribution Width 12.7 10.0-14.5 % Platelet Count 302 130-400 10^3/uL Mean Platelet Volume 9.6 7.4-10.4 FL Neutrophils (%) (Auto) 80 H 42-75 % Lymphocytes (%) (Auto) 13 12-44 % Monocytes (%) (Auto) 6 0-12 % Eosinophils (%) (Auto) 1 0-10 % Basophils (%) (Auto) 1 0-10 % Neutrophils # (Auto) 16.0 H 1.8-7.8 X 10^3 Lymphocytes # (Auto) 2.7 1.0-4.0 X 10^3 Monocytes # (Auto) 1.1 H 0.0-1.0 X 10^3 Eosinophils # (Auto) 0.1 0.0-0.3 10^3/uL Basophils # (Auto) 0.1 0.0-0.1 10^3/uL Neutrophils % (Manual) 82 % Lymphocytes % (Manual) 14 % Monocytes % (Manual) 4 % Polychromasia SLIGHT Prothrombin Time 14.2 12.2-14.7 SEC INR Comment 1.1 0.8-1.4 Activated Partial Thromboplast Time 25 24-35 SEC Sodium Level 138 135-145 MMOL/L Potassium Level 4.1 3.6-5.0 MMOL/L Chloride Level 108 H 98-107 MMOL/L Carbon Dioxide Level 20 L 21-32 MMOL/L Anion Gap 10 5-14 MMOL/L Blood Urea Nitrogen 17 7-18 MG/DL Creatinine 0.95 0.60-1.30 MG/DL Estimat Glomerular Filtration Rate > 60 BUN/Creatinine Ratio 18 Glucose Level 162 H 70-105 MG/DL Calcium Level 7.8 L 8.5-10.1 MG/DL Total Bilirubin 0.3 0.1-1.0 MG/DL Aspartate Amino Transf (AST/SGOT) 15 5-34 U/L Alanine Aminotransferase (ALT/SGPT) 19 0-55 U/L Alkaline Phosphatase 47 40-136 U/L Troponin I < 0.30 <0.30 NG/ML Total Protein 5.5 L 6.4-8.2 GM/DL Albumin 3.3 3.2-4.5 GM/DL My Orders Orders - VIANNEY BASSETT MD Cbc With Automated Diff (01/24/17 14:31) Comprehensive Metabolic Panel (01/24/17 14:31) Red Cells Leukocytes Reduced (01/24/17 14:31) Chest 1 View, Ap/Pa Only (01/24/17 14:31) Protime With Inr (01/24/17 14:31) Partial Thromboplastin Time (01/24/17 14:31) Troponin I (01/24/17 14:31) Ekg Tracing (01/24/17 14:31) O2 (01/24/17 14:31) Monitor-Rhythm Ecg Trace Only (01/24/17 14:31) Type And Screen (01/24/17 14:31) Manual Differential (01/24/17 14:40) Pantoprazole Injection (Protonix Injecti (01/24/17 15:15) Ns (Ivpb) (Sodium C... W/Pantoprazole In (01/24/17 15:15) Medications Given in ED Current Medications Medications Dose Ordered Sig/Casey Route Start Time Stop Time Status Last Admin Dose Admin Pantoprazole 80 mg ONCE ONCE IV 01/24/17 15:15 01/24/17 15:16 DC 01/24/17 15:19 80 MG Vital Signs/I&O Vital Sign - Last 12Hours 01/24/17 01/24/17 14:15 14:15 Temp 97.6 Pulse 92 Resp 18 B/P (MAP) 99/66 Pulse Ox 98 O2 Delivery Room Air Nasal Cannula O2 Flow Rate 2.00 Intake and Output 01/25/17 00:00 Intake Total 500 ml Balance 500 ml Progress Note : Progress Note Seen and evaluated. IV by EMS. Second IV initiated. Labs, EKG and chest x- ray ordered. Patient denies chest pain but had report of chest tightness on report from outside facility so we will check EKG and troponin. Type and cross for 4 units due to what appears to be fairly rapid blood loss. I did verify patient's previous hemoglobin at the clinic. Last year it was 15.2. 1500: Protonix 80 mg IV and 8 mg an hour drip initiated. Monitor patient. 1540: Discussed case with Dr. Odell. 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 I will discuss the case with Dr. Ac, on-call for [facility] for admission. ICU admission. Inpatient status. Dr. Odell will likely do scope tonight. I did discuss the case with Dr. Ac and she does accept patient for admission. Cardiology consulted due to chest pressure and single episode. I did discuss the case with Dr. Solo and he accepts patient in consult and will see him in the ICU. Findings and concerns discussed with patient and he agrees with admission. Inpatient status. ECG Initial ECG Impression Date: Jan 24, 2017 Initial ECG Impression Time: 14:52 Initial ECG Rate: 98 Initial ECG Rhythm: Normal Sinus, S.Tach Comment Sinus rhythm with rate of 98. Normal axis. No evidence of ST elevation LA. No previous available for comparison. Interpreted by me. Diagnostic Imaging Diagonstic Imaging: Xray Plain Films/CT/US/NM/MRI: chest Comments VIA [facility] [place], [place] NAME: ANDRES MCKINNEY [facility] REC#: [id number] PT STATUS: REG ER : 1955 PHYSICIAN: VIANNEY BASSETT MD ADMIT DATE: 01/24/17/ER Draft Date of Exam:01/24/17 CHEST 1 VIEW, AP/PA ONLY INDICATION: Syncope. Frontal chest obtained at 3:04 p.m. FINDINGS: Heart is normal in size. There is a retrocardiac air-fluid level compatible with hiatal hernia. There is no focal infiltrate or pneumothorax or pleural fluid. IMPRESSION: Retrocardiac air-fluid level is present compatible with a prominent hiatal hernia. There is no acute infiltrate or pleural fluid. Dictated on workstation # [id number] Dict: 01/24/17 1520 Trans: 01/24/17 1528 [facility] [id number] Interpreted by: NORMA RODRIGUES MD Electronically signed by: Departure Communication (Admissions) Time/Spoke to Admitting Phy: 15:40 Time/Spoke to Consulting Phy: 15:45 Impression Impression: Primary Impression: GI bleed Qualified Codes: K92.2 - Gastrointestinal hemorrhage, unspecified Additional Impressions: Chest pain Qualified Codes: R07.9 - Chest pain, unspecified Syncope Qualified Codes: R55 - Syncope and collapse Disposition: 09 ADMITTED INPATIENT Condition: Stable Admissions Decision to Admit Reason: Admit from ER (General) Decision to Admit/Date: Jan 24, 2017 Time/Decision to Admit Time: 15:59 Departure-Patient Inst. Referrals: BENY ALY MD (PCP/Family) Primary Care Physician VIANNEY BASSETT MD Jan 24, 2017 15:02
[2017-01-24 15:11] LABS: ALANINE AMINOTRANSFERASE 19 U/L (0-55); ALBUMIN 3.3 GM/DL (3.2-4.5); ANION GAP 10 MMOL/L (5-14); ASPARTATE AMINO TRANSFERASE 15 U/L (5-34); BILIRUBIN,TOTAL 0.3 MG/DL (0.1-1.0); BLOOD UREA NITROGEN 17 MG/DL (7-18); BUN/CREATININE RATIO 18; CALCIUM 7.8 MG/DL (8.5-10.1); CARBON DIOXIDE 20 MMOL/L (21-32); CHLORIDE 108 MMOL/L (98-107); CREATININE SERUM 0.95 MG/DL (0.60-1.30); GFR ESTIMATED > 60; GLUCOSE 162 MG/DL (70-105); POTASSIUM 4.1 MMOL/L (3.6-5.0); SODIUM 138 MMOL/L (135-145); TOTAL PROTEIN 5.5 GM/DL (6.4-8.2)
[2017-01-24] MEDS ORDERED: PANTOPRAZOLE INJECTION 200 MG in NS (IVPB) 50 ML IV SCH (15:15)
[2017-01-24] MEDS ORDERED: PANTOPRAZOLE 40 MG/10 ML (PROTONIX) VIAL IV ONE (15:15)
[2017-01-24 15:17] LABS: LYMPHOCYTES % (MANUAL) 14 %; NEUTROPHILS % (MANUAL) 82 %; POLYCHROMASIA SLIGHT; TROPONIN I < 0.30 NG/ML (<0.30)
--- NOTE | 2017-01-24 15:28 | Diagnostic Imaging Report ---
INDICATION: Syncope. Frontal chest obtained at 3:04 p.m. FINDINGS: Heart is normal in size. There is a retrocardiac air-fluid level compatible with hiatal hernia. There is no focal infiltrate or pneumothorax or pleural fluid. IMPRESSION: Retrocardiac air-fluid level is present compatible with a prominent hiatal hernia. There is no acute infiltrate or pleural fluid. Dictated by: Dictated on workstation # [id number]
--- OUTSIDE RECORDS SUMMARY | 2017-01-24 16:25 | XMS REPORT | Continuity of Care Document ---
Author Author [facility] Organization [facility] Address Unknown Phone Unavailable Allergies Active Description Code Type Severity Reaction Onset Reported/Identified Relationship to Patient Clinical Status Yes No Known Drug Allergies [id number] Drug Allergy Unknown N/ A 08/17/2013 Medications [...] DO WENDY K 462 SORE THROAT 05/26/2011 BNEY ALY MD 462 SORE THROAT 06/09/2011 786.2 [...] CELLULITIS AND ABSCESS OF TRUNK 12/21/2011 BENY AYL MD 682.2 CELLULITIS AND ABSCESS OF TRUNK [...] Procedures Code Description [place] [address] ROUTINE VENIPUNCTURE 08/16/2012 74081 PSA TOTAL 2012 G0008 FLU ADMINISTRATION (MEDICARE ONLY) 01/22/2013 Internal Enzo Guy 05/15/2013 82646 XRAY FOOT LEFT COMP MIN 3 VIEWS 09/03/2013 Results Encounters ACCT No. Visit Date/Time Discharge Status Pt. Type Provider Facility Loc./Unit Complaint [id number] 08/17/2013 07:02:00 2013 10:10:00 DIS Outpatient [id number] 08/15/2013 07:21:00 2013 23:59:59 CLS Outpatient [id number] 05/30/2014 10:28:00 Document Registration [id number] 02/22/2014 15:04:00 02/22/2014 23: 59:59 CLS Outpatient BENY ALY MD [id number] 01/18/2014 12:56:00 01/18/2014 23: 59:59 CLS Outpatient WENDY GILLILAND DO [id number] 09/03/2013 12:16:00 09/03/2013 23: 59:59 CLS Outpatient JEFFREY MONTELONGO APRN [id number] 05/15/2013 08:12:00 05/15/2013 23: 59:59 CLS Outpatient BENY ALY MD [id number] 02/06/2013 12:57:00 02/06/2013 23: 59:59 CLS Outpatient MARTI ANN APRN [id number] 01/22/2013 16:13:00 01/22/2013 23: 59:59 CLS Outpatient WENDY GILLILAND DO [id number] 05/05/2012 08:01:00 05/05/2012 23: 59:59 CLS Outpatient [id number] 08/16/2012 13:15:00 Document Registration [id number] 07/19/2012 13:44:00 Document Registration
[2017-01-24] MEDS ORDERED: EPINEPHrine INJECTION 1 MG/ML AMP ONE (16:34)
[2017-01-24] MEDS ORDERED: LACTATED RINGERS 1,000 ML IV ONE ×2 (16:53→18:02)
[2017-01-24] MEDS ORDERED: DUTA0.5C14 PO (17:14)
[2017-01-24] MEDS ORDERED: MIDAZOLAM 2 MG/2 ML (VERSED) VIAL ONE (17:19)
[2017-01-24] MEDS ORDERED: fentaNYL INJECTION 100 MCG/2 ML AMP ONE (17:20)
[2017-01-24] MEDS ORDERED: HURRICAINE EXT TUBE (BENZOCAINE) XX PRN (17:30)
[2017-01-24] MEDS ORDERED: ONDANSETRON 4 MG/2 ML (SDV) Z0FRAN IV PRN (17:30)
[2017-01-24] MEDS ORDERED: ASPI-983 PO (17:36)
[2017-01-24] MEDS ORDERED: IBUP-2055 PO (17:36)
[2017-01-24] MEDS ORDERED: AMIT25TA9 PO (17:36)
[2017-01-24] MEDS ORDERED: CHOL2000 PO (17:36)
[2017-01-24] MEDS ORDERED: ACET325T49 PO (17:36)
[2017-01-24] MEDS ORDERED: CATHETER FLUSH 10 ML SYR IV PRN (17:45)
[2017-01-24] MEDS ORDERED: morphine INJ 4 MG/ML 1 ML (VIAL/SYRINGE) IV PRN (17:45)
[2017-01-24] MEDS ORDERED: NITROGLYCERIN 0.4 MG SL TABS BTL 25'S SL PRN (17:45)
[2017-01-24] MEDS: PANTOPRAZOLE INJECTION 200 MG in NS (IVPB) 50 ML IV SCH (17:59)
[2017-01-24] MEDS: NS IV 1000 ML 1,000 ML IV SCH (18:00)
[2017-01-24] MEDS: fentaNYL INJECTION 100 MCG/2 ML AMP IVP PRN ×2 (18:05→18:20)
[2017-01-24] MEDS: MIDAZOLAM 2 MG/2 ML (VERSED) VIAL IVP PRN ×3 (18:07→18:16)
[2017-01-24] MEDS ORDERED: INFLUENZA TRIvalent 2017-2018 0.5 ML/45 MCG SYR IM ONE (18:15)
[2017-01-24] MEDS ORDERED: PROPOFOL DRIP (ICU) 100 ML IV ONE (18:28)
[2017-01-24 19:05] VITALS: BP 111/95
--- NOTE | 2017-01-24 19:15 | Anesthesia-Procedure Note ---
Procedure Start/Stop Time Date of Procedure: Jan 24, 2017 Start Time: 18:41 Brief History Called to ICU [address] for failed sedation with Dr[address] Odell. Patient is a 61 year old male in ICU for GI bleed and in need of EGD. 100 mg Fentanyl and 6mg Versed IV given in the ICU per RN and patient continues to fight. After obtaining brief history, I started a Propofol gtt with etcO2 monitoring. Pt tolerated procedure well. O2 5L/NC. reports history of heavy alcohol use and obstructive sleep apnea; however, the patient refuses to wear CPAP. I reported to Mirela Sampson RN , a total of 300 mg Propofol given. Stop Time: 19:01 VERONICA TORRES CRNA Jan 24, 2017 19:15
--- NOTE | 2017-01-24 19:21 | Consultation ---
History of Present Illness History of Present Illness Patient Consulted On(wilma/time) 01/24/17 19:16 Date Seen by Provider: Jan 24, 2017 Time Seen by Provider: 16:05 Reason for Visit: melena, diarrhea and syncopal episode History of Present Illness this gentleman has been on oral antibiotics to address infection associated with root canals of his teeth and was given ibuprofen 4 days ago. Over the course of last 2 days, he has developed fatigue diarrhea and melena. His symptoms became acute resulting in a syncopal episode this morning at the place of his work, prompting immediate evaluation and an ER visit. Acute anemia due to blood loss has been discovered, hemoglobin being 8.4. Intravenous Protonix infusion has been initiated and I been asked to see him regarding his GI bleeding. Allergies and Home Medications Allergies Coded Allergies: No Known Drug Allergies (Unverified , 08/17/13) Home Medications Acetaminophen 325 Mg Tablet, 325 MG PO BID, (Reported) Amitriptyline HCl 25 Mg Tablet, 25-50 MG PO HS PRN for SLEEP, (Reported) TAKES 1-2 OF A (25 MG) TABLET Amlodipine Besylate 10 Mg Tablet, 10 MG PO DAILY, (Reported) Aspirin 81 Mg Tablet.dr, 81 MG PO DAILY, (Reported) Atorvastatin Calcium 80 Mg Tablet, 80 MG PO DAILY, (Reported) Cholecalciferol (Vitamin D3) 2,000 Unit Capsule, 2,000 UNIT PO DAILY, (Reported) Dutasteride 0.5 Mg Capsule, 0.5 MG PO DAILY, (Reported) Ibuprofen 200 Mg Tablet, 600 MG PO BID, (Reported) TAKES 3 (200 MG) TABLETS Past Wmepdis-Xaegds-Srqgvg Hx Patient Social History Alcohol Use: Regular Use Number of Drinks Today: 0 Alcohol Beverage of Choice: Whiskey Recreational Drug Use: No Smoking Status: Current Someday Smoker Type Used: Cigars Recent Foreign Travel: No Contact w/Someone Who Travel: No Recent Infectious Disease Expo: No Recent Hopitalizations: No Immunizations Up To Date PED Vaccines UTD: No Date of Pneumonia Vaccine: Dec 18, 2009 Date of Influenza Vaccine: Jan 17, 2013 Seasonal Allergies Seasonal Allergies: No Surgeries History of Surgeries: Yes (inguinal hernia repair x3) Respiratory History of Respiratory Disorde: No Cardiovascular History of Cardiac Disorders: Yes Cardiac Disorders: High Cholesterol, Hypertension Neurological History of Neurological Disord: No Genitourinary History of Genitourinary Disor: Yes (enlarged prostate) Genitourinary Disorders: Prostate Problems Gastrointestinal History of Gastrointestinal Di: Yes Gastrointestinal Disorders: Diverticulosis, Hiatal Hernia Musculoskeletal History of Musculoskeletal Dis: No Endocrine History of Endocrine Disorders: No HEENT History of HEENT Disorders: No Cancer History of Cancer: No Psychosocial History of Psychiatric Problem: Yes Behavioral Health Disorders: Sleep Difficulties Integumentary History of Skin or Integumenta: No Blood Transfusions History of Blood Disorders: No Reviewed Nursing Assessment Reviewed/Agree w Nursing PMH: Yes Family Medical History Significant Family History: No Pertinent Family Hx Review of Systems-General Constitutional: diaphoresis, malaise, weakness Respiratory: no symptoms reported Cardiovascular: no symptoms reported Gastrointestinal: see HPI Genitourinary: no symptoms reported Musculoskeletal: no symptoms reported Skin: no symptoms reported Psychiatric/Neurological: No Symptoms Reported Physical Exam-General Problems Physical Exam Vital Signs Vital Sign - Last 12Hours 01/24/17 14:15 Temp 97.6 Pulse 92 Resp 18 B/P (MAP) 99/66 Pulse Ox 98 O2 Delivery Room Air O2 Flow Rate 2.00 Capillary Refill : Less Than 3 Seconds General Appearance: no apparent distress Neck: normal inspection Respiratory: lungs clear Cardiovascular: tachycardia Gastrointestinal: non tender, soft, other Rectal: deferred Extremities: normal inspection Neurologic/Psychiatric: alert, oriented x 3 Skin: warm/dry Comments surgical scars over both inguinal region with no recurrence of his hernia Assessment/Plan Assessment/Plan Admission Diagnosis/Plan gentleman with GI bleeding. Upper GI source more likely. Reasonable to perform an upper endoscopy this evening. He may require colonoscopy subsequently. Hemoglobin will be observed closely and transfusion instituted if below 8 g Clinical Quality Measures DVT/VTE Risk/Contraindication: Risk Factor Score Per Nursin RFS Level Per Nursing on Admit: 1=Low/No VTE PPX DARLENE MOTLEY MD Jan 24, 2017 7:21 pm
--- NOTE | 2017-01-24 19:22 | Conscious Sedation/ASA ---
Conscious Sedation Pre-Proced Time Reviewed: 16:15 ASA Class: 3 Airway Mallampati Classification: ([place] appropriate class) I. II. III, IV Lungs Heart ASA score ASA 1: a normal healthy patient ASA 2: a patient with a mild systemic disease (mid diabetes, controlled hypertension, obesity ASA 3: a patient with a severe systemic disease that limits activity (angina , COPD, prior Myocardial infarction) ASA 4: a patient with an incapacitating disease that is a constant threat to life (CHF, renal failure) ASA 5: a moribund patient not expected to survive 24 hrs. (ruptured aneurysm) ASA 6: a declared brain patient whose organs are being harvested. For emergent operations, add the letter E after the classification Grade 2 Sedation Plan: Discussed options with patient/fam Note The patient is an appropriate candidate to undergo the planned procedure, sedation, and anesthesia. The patient immediately re-assessed prior to indication. DARLENE MOTLEY MD Jan 24, 2017 7:21 pm
--- NOTE | 2017-01-24 19:27 | Endo Procedure Record ---
Endo Procedure Report Date of Procedure Jan 24, 2017 Surgeon (s) DARLENE MOTLEY MD Post Procedure/Op Diagnosis multiple distal gastric erosions with no active bleeding. A few erosions at the fundus. 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 No ulcer at the duodenum Procedure Performed EGD with sclerotherapy 4 Description of Procedure Anesthesia Type: Conscious Sedation Specimen(s) collected/removed none Description of the Procedure Indication for the procedure: This gentleman has been admitted with GI bleeding of unknown origin. Upper endoscopy was offered as the initial mode of evaluation. Informed consent was obtained after reviewing the procedure in detail. Description of the procedure:he was monitored in the ICU and placed in left lateral rectus position. Initially, conscious sedation was attempted using Versed and fentanyl by our nursing staff. Since he could not be sedated adequately, we had the UNIVERSITY RELATIONS DIRECTOR administered propofol infusion and achieve satisfactory sedation. The flexible gastroscope was introdu Nonbleeding small AV malformations about a millimeter in size at the fundus.shivani down the esophagus, past the stomach, into the third part of the duodenum. Findings: Esophagus: Hiatal hernia with no esophagitis. No varices were found. Stomach: 1. 3 acute erosions at the antrum possibly induced by ibuprofen with minimal erythema around. No active bleeding was encountered. Sclerotherapy was achieved using 1 in 10,000 epinephrine with adequate blanching 2. Nonbleeding linear erosion at the fundus where sclerotherapy was performed as well. 3. nonbleeding, small AV malformations at the fundus Duodenum: Normal He tolerated the procedure reasonably well and remained stable. Impression: GI bleeding: Unclear whether upper GI in origin at this point. Small erosions in the stomach, sclerotherapy completed. We'll continue Protonix infusion, initiate bowel preparation for colonoscopy in 48 hours. Copies To: HERLINDA NEIL DO Copies To: BENY ALY MD,DARLENE Leonardo MD Jan 24, 2017 7:27 pm
[2017-01-24] MEDS ORDERED: EPINEPHrine INJECTION 1 MG/ML AMP IV PRN (19:30)
[2017-01-24] MEDS ORDERED: MAGNESIUM CITRATE 300 ML BTL PO NR (19:30)
[2017-01-24] MEDS ORDERED: AMITRIPTYLINE 25 MG (ELAVIL) TAB PO PRN (19:30)
[2017-01-24 20:00] VITALS: BP 103/61
[2017-01-24 21:00] VITALS: BP 109/75
[2017-01-24 22:00] VITALS: BP 110/73
[2017-01-24] MEDS: CATHETER FLUSH 10 ML SYR IV SCH (22:00)
[2017-01-24 23:00] VITALS: BP 104/67
[2017-01-25] VITALS (30 sets, daily range): BP systolic 100–150; BP diastolic 66–90
[2017-01-25] MEDS: NS IV 1000 ML 1,000 ML IV SCH ×2 (01:54→15:23)
[2017-01-25 05:07] LABS: BASOPHILS # (AUTO) 0.1 10^3/uL (0.0-0.1); BASOPHILS % (AUTO) 0 % (0-10); EOSINOPHILS # (AUTO) 0.1 10^3/uL (0.0-0.3); EOSINOPHILS % (AUTO) 1 % (0-10); LYMPHOCYTES # (AUTO) 2.7 X 10^3 (1.0-4.0); LYMPHOCYTES % (AUTO) 19 % (12-44); MEAN CORPUSCULAR HEMOGLOBIN 29 PG (25-34); MEAN CORPUSCULAR HGB CONC 32 G/DL (32-36); MEAN CORPUSCULAR VOLUME 89 FL (80-99); MEAN PLATELET VOLUME 9.5 FL (7.4-10.4); MONOCYTES # (AUTO) 1.1 X 10^3 (0.0-1.0); MONOCYTES % (AUTO) 8 % (0-12); NEUTROPHILS % (AUTO) 72 % (42-75); PLATELET COUNT 267 10^3/uL (130-400); RED BLOOD COUNT 2.59 10^6/uL (4.35-5.85); RED CELL DISTRIBUTION WIDTH 12.8 % (10.0-14.5); WHITE BLOOD COUNT 13.9 10^3/uL (4.3-11.0)
[2017-01-25 05:25] LABS: ALANINE AMINOTRANSFERASE 19 U/L (0-55); ALBUMIN 3.1 GM/DL (3.2-4.5); ANION GAP 7 MMOL/L (5-14); ASPARTATE AMINO TRANSFERASE 15 U/L (5-34); BILIRUBIN,TOTAL 0.3 MG/DL (0.1-1.0); BLOOD UREA NITROGEN 13 MG/DL (7-18); BUN/CREATININE RATIO 17; CALCIUM 8.1 MG/DL (8.5-10.1); CARBON DIOXIDE 26 MMOL/L (21-32); CHLORIDE 107 MMOL/L (98-107); CREATININE SERUM 0.76 MG/DL (0.60-1.30); DIRECT LDL 56 MG/DL (1-129); GFR ESTIMATED > 60; GLUCOSE 81 MG/DL (70-105); POTASSIUM 4.5 MMOL/L (3.6-5.0); SODIUM 140 MMOL/L (135-145); TOTAL PROTEIN 5.2 GM/DL (6.4-8.2); TRIGLYCERIDES 187 MG/DL (<150); VLDL CHOLESTEROL 37 MG/DL (5-40)
[2017-01-25 05:33] LABS: MYOGLOBIN SERUM 54.2 NG/ML (10.0-92.0)
[2017-01-25] MEDS: CATHETER FLUSH 10 ML SYR IV SCH ×3 (06:07→21:07)
[2017-01-25] MEDS ORDERED: NS IV 500 ML 500 ML IV ONE (06:15)
[2017-01-25 06:25] LABS: CHOLESTEROL 113 MG/DL (< 200)
[2017-01-25] MEDS ORDERED: MAGNESIUM CITRATE 300 ML BTL PO NR ×3 (07:00→19:00)
--- NOTE | 2017-01-25 08:40 | History & Physicial (CHS) ---
HPI History of Present Illness: The patient is a 61-year-old male who presented to the clinic with complaints of diarrhea and blood in his stool, he was noted to be extremely pale as well as having had a syncopal episode. He was sent by ambulance to the emergency department where he was found to be severely anemic which was suspected to be due to a GI bleed based on his report of blood in his stool as no other obvious source of rik bleeding. General Surgery was consulted for immediate evaluate of the patient. Per records from the clinic, it appears the patient's baseline hemoglobin one year ago was 15.2, he denies having any previous episodes of bloody diarrhea similar to this. She is a generally healthy individual who works full-time for [employer], with past medical history that includes hypertension, hyperlipidemia, anxiety, BPH, and intermittent back pain Source: patient, family, RN/MD, old records Exam Limitations: no limitations Date seen by provider: Jan 25, 2017 Time Seen by Provider: 09:10 Attending Physician Paulo Breen MD PCP Paulo Breen MD Consult General Surgery Date of Admission Jan 24, 2017 at 15:50 Home Medications Home Medications Reviewed patient Home Medication Reconciliation Form Allergies Coded Allergies: No Known Drug Allergies (Unverified , 08/17/13) UQR-Bsyfwg-Pmnryc Hx Patient Social History Marrital Status: Living Status: lives at home with his Employed/Student: employed Alcohol Use: Regular Use Recreational Drug Use: No Smoking Status: Current Someday Smoker Type Used: Cigars 2nd Hand Smoke Exposure: No Recent Foreign Travel: No Contact w/other who traveled: No Recent Hopitalizations: No Recent Infectious Disease Expo: No Physical Abuse Screen: No Sexual Abuse: No Immunizations Up To Date Tetanus Booster (TDap): Unknown Date of Pneumonia Vaccine: Dec 18, 2009 Date of Influenza Vaccine: Jan 17, 2013 Past Medical History 1 hypertension 2 hyperlipidemia 3 anxiety 4 chronic low back pain 5 BPH Family Medical History Significant Family History: No Pertinent Family Hx Review of Systems ([employer]) Constitutional: diaphoresis, dizziness, weakness, other (syncope) EENTM: No ear pain, No eye pain, No epistaxis, No throat swelling Respiratory: No cough, No hemoptysis, No wheezing Cardiovascular: No chest pain, No edema, No Hx of Intervention, No palpitations , syncope Gastrointestinal: see HPI, diarrhea, melena Genitourinary: other (history of BPH) Musculoskeletal: back pain (chronic) Skin: see HPI, change in color (very pale) Psychiatric/Neurological: Anxiety Reviewed Test Results Reviewed Test Results Lab Laboratory Tests Test 01/24/17 14:40 01/24/17 20:10 01/25/17 04:20 01/25/17 17:01 Range/Units White Blood Count 19.9 H 13.9 H 4.3-11.0 10^3/uL Red Blood Count 2.94 L 2.59 L 4.35-5.85 10^6/uL Hemoglobin 8.5 L 8.1 L 7.4 L 13.3-17.7 G/DL Hematocrit 26 L 23 L 40-54 % Mean Corpuscular Volume 89 89 80-99 FL Mean Corpuscular Hemoglobin 29 29 25-34 PG Mean Corpuscular Hemoglobin Concent 33 32 32-36 G/DL Red Cell Distribution Width 12.7 12.8 10.0-14.5 % Platelet Count 302 267 130-400 10^3/uL Mean Platelet Volume 9.6 9.5 7.4-10.4 FL Neutrophils (%) (Auto) 80 H 72 42-75 % Lymphocytes (%) (Auto) 13 19 12-44 % Monocytes (%) (Auto) 6 8 0-12 % Eosinophils (%) (Auto) 1 1 0-10 % Basophils (%) (Auto) 1 0 0-10 % Neutrophils # (Auto) 16.0 H 10.0 H 1.8-7.8 X 10^3 Lymphocytes # (Auto) 2.7 2.7 1.0-4.0 X 10^3 Monocytes # (Auto) 1.1 H 1.1 H 0.0-1.0 X 10^3 Eosinophils # (Auto) 0.1 0.1 0.0-0.3 10^3/uL Basophils # (Auto) 0.1 0.1 0.0-0.1 10^3/uL Neutrophils % (Manual) 82 % Lymphocytes % (Manual) 14 % Monocytes % (Manual) 4 % Polychromasia SLIGHT Prothrombin Time 14.2 12.2-14.7 SEC INR Comment 1.1 0.8-1.4 Activated Partial Thromboplast Time 25 24-35 SEC Sodium Level 138 140 135-145 MMOL/L Potassium Level 4.1 4.5 3.6-5.0 MMOL/L Chloride Level 108 H 107 98-107 MMOL/L Carbon Dioxide Level 20 L 26 21-32 MMOL/L Anion Gap 10 7 5-14 MMOL/L Blood Urea Nitrogen 17 13 7-18 MG/DL Creatinine 0.95 0.76 0.60-1.30 MG/DL Estimat Glomerular Filtration Rate > 60 > 60 BUN/Creatinine Ratio 18 17 Glucose Level 162 H 81 70-105 MG/DL Calcium Level 7.8 L 8.1 L 8.5-10.1 MG/DL Total Bilirubin 0.3 0.3 0.1-1.0 MG/DL Aspartate Amino Transf (AST/SGOT) 15 15 5-34 U/L Alanine Aminotransferase (ALT/SGPT) 19 19 0-55 U/L Alkaline Phosphatase 47 45 40-136 U/L Troponin I < 0.30 < 0.30 <0.30 NG/ML Total Protein 5.5 L 5.2 L 6.4-8.2 GM/DL Albumin 3.3 3.1 L 3.2-4.5 GM/DL Myoglobin 54.2 10.0-92.0 NG/ML Triglycerides Level 187 H <150 MG/DL Cholesterol Level 113 < 200 MG/DL LDL Cholesterol Direct 56 1-129 MG/DL VLDL Cholesterol 37 5-40 MG/DL HDL Cholesterol 30 L 40-60 MG/DL Lab Scanned Report Transfusion Reaction Form [id number] Test 01/25/17 17:55 01/26/17 04:45 Range/Units Hemoglobin 12.6 #L 10.5 L 13.3-17.7 G/DL Hematocrit 36 L 32 L 40-54 % White Blood Count 12.7 H 4.3-11.0 10^3/uL Red Blood Count 3.62 L 4.35-5.85 10^6/uL Mean Corpuscular Volume 87 80-99 FL Mean Corpuscular Hemoglobin 29 25-34 PG Mean Corpuscular Hemoglobin Concent 33 32-36 G/DL Red Cell Distribution Width 14.2 10.0-14.5 % Platelet Count 264 130-400 10^3/uL Mean Platelet Volume 9.3 7.4-10.4 FL Neutrophils (%) (Auto) 73 42-75 % Lymphocytes (%) (Auto) 16 12-44 % Monocytes (%) (Auto) 9 0-12 % Eosinophils (%) (Auto) 2 0-10 % Basophils (%) (Auto) 0 0-10 % Neutrophils # (Auto) 9.3 H 1.8-7.8 X 10^3 Lymphocytes # (Auto) 2.1 1.0-4.0 X 10^3 Monocytes # (Auto) 1.1 H 0.0-1.0 X 10^3 Eosinophils # (Auto) 0.3 0.0-0.3 10^3/uL Basophils # (Auto) 0.1 0.0-0.1 10^3/uL Sodium Level 137 135-145 MMOL/L Potassium Level 3.8 3.6-5.0 MMOL/L Chloride Level 105 98-107 MMOL/L Carbon Dioxide Level 25 21-32 MMOL/L Anion Gap 7 5-14 MMOL/L Blood Urea Nitrogen 8 7-18 MG/DL Creatinine 0.81 0.60-1.30 MG/DL Estimat Glomerular Filtration Rate > 60 BUN/Creatinine Ratio 10 Glucose Level 88 70-105 MG/DL Calcium Level 8.0 L 8.5-10.1 MG/DL Phosphorus Level 2.3 2.3-4.7 MG/DL Magnesium Level 2.6 H 1.8-2.4 MG/DL Total Bilirubin 0.7 0.1-1.0 MG/DL Aspartate Amino Transf (AST/SGOT) 22 5-34 U/L Alanine Aminotransferase (ALT/SGPT) 20 0-55 U/L Alkaline Phosphatase 56 40-136 U/L Total Protein 6.2 L 6.4-8.2 GM/DL Albumin 3.6 3.2-4.5 GM/DL Physical Exam-(CHC) Physical Exam Vital Signs VS - Last 72 Hours, by Label 01/24/17 01/24/17 01/24/17 01/24/17 14:15 14:15 17:09 17:30 Temp 97.6 Pulse 92 92 89 Resp 18 18 B/P (MAP) 99/66 Pulse Ox 98 98 O2 Delivery Room Air Nasal Cannula O2 Flow Rate 2.00 01/24/17 01/24/17 01/24/17 01/24/17 18:00 18:32 18:50 19:05 Temp 97.6 Pulse 100 113 Resp 23 15 B/P (MAP) 109/75 111/95 Pulse Ox 100 92 92 O2 Delivery Nasal Cannula Nasal Cannula Nasal Cannula Nasal Cannula O2 Flow Rate 2.00 2.00 3.00 2.00 2.00 01/24/17 01/24/17 01/24/17 01/24/17 19:13 20:00 20:00 21:00 Pulse 107 100 100 Resp 6 23 B/P (MAP) 103/61 109/75 Pulse Ox 95 99 100 O2 Delivery Nasal Cannula Nasal Cannula Nasal Cannula O2 Flow Rate 3.00 2.00 2.00 2.00 2.00 01/24/17 01/24/17 01/24/17 01/25/17 22:00 22:30 23:00 00:00 Pulse 97 93 Resp 17 10 B/P (MAP) 110/73 104/67 Pulse Ox 95 99 99 95 O2 Delivery Nasal Cannula Nasal Cannula Nasal Cannula Nasal Cannula O2 Flow Rate 2.00 3.00 2.00 2.00 2.00 2.00 01/25/17 01/25/17 01/25/17 01/25/17 00:00 01:00 01:13 02:00 Temp 98.6 Pulse 89 83 87 94 Resp 17 14 28 B/P (MAP) 113/74 107/70 112/71 Pulse Ox 95 95 95 O2 Delivery Nasal Cannula Nasal Cannula Nasal Cannula O2 Flow Rate 2.00 2.00 2.00 2.00 2.00 2.00 01/25/17 01/25/17 01/25/17 01/25/17 02:32 03:00 04:00 04:00 Temp 99.2 Pulse 87 85 Resp 17 B/P (MAP) 100/66 112/69 Pulse Ox 94 95 97 O2 Delivery Nasal Cannula Nasal Cannula Nasal Cannula O2 Flow Rate 2.00 2.00 2.00 2.00 2.00 01/25/17 01/25/17 01/25/17 01/25/17 04:00 05:00 06:00 06:34 Temp 97.1 Pulse 95 92 93 Resp 17 16 B/P (MAP) 115/80 106/68 110/71 Pulse Ox 95 95 94 97 O2 Delivery Nasal Cannula Nasal Cannula Nasal Cannula Nasal Cannula O2 Flow Rate 2.00 2.00 2.00 2.00 2.00 2.00 01/25/17 01/25/17 01/25/17 01/25/17 06:40 06:49 07:00 07:00 Temp 98.2 Pulse 91 89 89 Resp 16 15 B/P (MAP) 114/73 116/70 Pulse Ox 97 96 96 O2 Delivery Nasal Cannula Nasal Cannula Nasal Cannula O2 Flow Rate 2.00 2.00 2.00 01/25/17 01/25/17 01/25/17 01/25/17 08:00 08:27 08:55 09:00 Temp 98.0 Pulse 87 90 98 Resp 15 18 22 B/P (MAP) 110/73 110/73 122/81 Pulse Ox 96 97 95 96 O2 Delivery Nasal Cannula Nasal Cannula Nasal Cannula Nasal Cannula O2 Flow Rate 2.00 2.00 2.00 2.00 01/25/17 01/25/17 01/25/17 01/25/17 10:00 10:21 10:51 11:00 Temp 98.5 Pulse 98 110 90 Resp 11 16 B/P (MAP) 113/72 113/72 150/84 Pulse Ox 95 92 97 94 O2 Delivery Nasal Cannula Nasal Cannula Nasal Cannula Nasal Cannula O2 Flow Rate 2.00 2.00 2.00 2.00 01/25/17 01/25/17 01/25/17 01/25/17 11:15 12:00 12:00 12:20 Temp 98.6 98.2 Pulse 90 98 Resp 24 B/P (MAP) 113/70 114/66 Pulse Ox 96 95 95 O2 Delivery Nasal Cannula Room Air Room Air Room Air O2 Flow Rate 2.00 01/25/17 01/25/17 01/25/17 01/25/17 12:43 13:00 13:00 14:00 Temp 98.2 Pulse 101 100 99 104 Resp 20 22 12 B/P (MAP) 114/66 116/88 120/76 Pulse Ox 94 94 O2 Delivery Nasal Cannula Room Air Room Air O2 Flow Rate 2.00 01/25/17 01/25/17 01/25/17 01/25/17 15:00 16:00 16:50 17:00 Temp 98.3 Pulse 97 93 102 Resp 19 19 28 B/P (MAP) 120/76 123/77 129/72 Pulse Ox 97 91 95 95 O2 Delivery Room Air Room Air Room Air Room Air 01/25/17 01/25/17 01/25/17 01/25/17 18:00 19:00 19:00 20:00 Temp 97.7 Pulse 106 102 102 101 Resp 16 19 17 B/P (MAP) 125/87 116/90 125/80 Pulse Ox 97 96 94 O2 Delivery Room Air Room Air Room Air 01/25/17 01/25/17 01/25/17 01/25/17 20:00 21:00 22:00 23:00 Pulse 107 87 83 Resp 21 21 15 B/P (MAP) 134/69 122/73 107/72 Pulse Ox 95 94 93 91 O2 Delivery Room Air Room Air Room Air Room Air 01/25/17 01/26/17 01/26/17 01/26/17 23:35 00:00 00:00 01:00 Temp 98.9 Pulse 84 80 101 Resp 17 B/P (MAP) 120/77 Pulse Ox 97 97 O2 Delivery Nasal Cannula Nasal Cannula Nasal Cannula O2 Flow Rate 2.00 2.00 2.00 01/26/17 01/26/17 01/26/17 01/26/17 01:00 02:00 03:00 04:00 Temp 98.9 Pulse 101 75 85 89 Resp 19 13 16 11 B/P (MAP) 125/81 108/76 110/63 120/79 Pulse Ox 94 92 97 96 O2 Delivery Nasal Cannula Nasal Cannula Nasal Cannula Nasal Cannula O2 Flow Rate 2.00 2.00 2.00 2.00 01/26/17 01/26/17 01/26/17 01/26/17 04:00 05:00 06:00 07:00 Pulse 88 79 80 Resp 16 16 16 B/P (MAP) 126/75 107/70 124/79 Pulse Ox 93 91 96 O2 Delivery Nasal Cannula Nasal Cannula Nasal Cannula Nasal Cannula O2 Flow Rate 2.00 2.00 2.00 2.00 01/26/17 01/26/17 01/26/17 01/26/17 07:00 07:28 08:00 08:50 Pulse 80 90 Resp 18 B/P (MAP) 115/76 Pulse Ox 97 O2 Delivery Nasal Cannula Nasal Cannula Nasal Cannula O2 Flow Rate 2.00 2.00 2.00 01/26/17 01/26/17 01/26/17 01/26/17 09:00 10:00 11:00 12:00 Pulse 99 97 83 88 Resp 19 13 25 13 B/P (MAP) 129/93 125/80 117/74 135/80 Pulse Ox 95 96 96 95 O2 Delivery Nasal Cannula Nasal Cannula Nasal Cannula Nasal Cannula O2 Flow Rate 2.00 2.00 2.00 2.00 01/26/17 01/26/17 01/26/17 01/26/17 12:05 13:45 16:00 19:54 Temp 98.4 98.0 99.3 Pulse 84 102 104 Resp 20 18 18 B/P (MAP) 123/70 112/61 122/68 Pulse Ox 93 93 95 O2 Delivery Room Air Nasal Cannula Nasal Cannula Nasal Cannula O2 Flow Rate 2.00 2.00 2.00 Capillary Refill : Less Than 3 Seconds General Appearance: no apparent distress Eyes: Bilateral Eye Conjunctivae Pale HEENT: PERRL/EOMI, pharynx normal, No scleral icterus (R), No scleral icterus ( L), pale conjunctivae (R), pale conjunctivae (L), No photophobia, No pharyngeal erythema Neck: non-tender, full range of motion, supple, normal inspection, No lymphadenopathy (R), No lymphadenopathy (L), No thyromegaly Respiratory: chest non-tender, lungs clear, normal breath sounds, no respiratory distress, no accessory muscle use, No crackles, No rales, No rhonchi , No stridor, No wheezing Cardiovascular: normal peripheral pulses, regular rate, rhythm (normal sinus rhythm per telemetry), no murmur, No bradycardia Peripheral Pulses: 2+ Dorsalis Pedis (R), 2+ Left Dors-Pedis (L), 2+ Radial Pulses (R), 2+ Radial Pulses (L) Gastrointestinal: normal bowel sounds, soft, no organomegaly, no pulsatile mass , No guarding, No rebound, tenderness (mild diffuse tenderness), No mass Rectal: deferred Back: normal inspection, no CVA tenderness, no vertebral tenderness Extremities: normal range of motion, non-tender, normal inspection, no calf tenderness, slow capillary refill, swelling (trace lower extremity edema) Neurologic/Psychiatric: leadership program associate II-XII nml as tested, no motor/sensory deficits, alert, normal mood/affect, oriented x 3, No facial droop, No depressed affect, No disoriented x 3 Skin: warm/dry, pallor Lymphatic: no adenopathy Clinical Quality Measures DVT/VTE Risk/Contraindication: Risk Factor Score Per Nursin RFS Level Per Nursing on Admit: 1=Low/No VTE PPX Assessment/Plan Assessment/Plan Admission Dx Syncope Severe anemia, suspected due to GI bleed Suspected GI bleed Diarrhea Hypertension Hyperlipidemia Anxiety BPH Chronic back pain Plan General surgery has been consulted and they took the patient for an urgent upper GI from the emergency department prior to his arrival in the intensive care unit. While the patient has been taking ibuprofen on a regular basis for the last few days and was noted to have a small hiatal hernia, it was not thought that this was the source of his significant blood loss. At this time the plan is to monitor his hemoglobin closely, and transfuse if his hemoglobin is less than 8.0. His hemoglobin this morning was 7.4, and the patient has received 1 unit of packed red blood cells and is getting ready to receive his second unit. He will have a CBC rechecked 4 hours after his second unit has been transfused. He has begun preparation for a colonoscopy that will be performed tomorrow morning by General Surgery. At this time we will continue to monitor his vital signs closely and will await results of further GI studies. We will monitor his lab values closely as well and transfuse if necessary. The patient's is present at bedside when he is examined this morning, and both the patient and his deny any questions for the primary team at this time. They've been made aware of how to contact us should they have any questions, concerns, or needs during their stay. Given that the patient has been admitted for an acute bleed, chemical DVT prophylaxis is being held at this time and SCDs are being used. The patient is also encouraged to ambulate to and from the bedside commode to help to decrease his risk of a clot. CONDITION: FAIR CODE STATUS: FULL HERLINDA NEIL DO Jan 25, 2017 08:40
[2017-01-25] MEDS: PANTOPRAZOLE INJECTION 200 MG in NS (IVPB) 50 ML IV SCH (08:55)
--- NOTE | 2017-01-25 09:59 | Consultation-Cardiology ---
HPI-Cardiology Cardiology Consultation: Date of Consultation 01/25/17 Time Seen by Provider: 09:50 Date of Admission 01-24-17 Attending Physician Paulo Breen MD Admitting Physician Paulo Breen MD Consulting Physician Danyel Solo MD, MA, FACP, FACC, [facility] [place], [facility] HPI: Chief Complaint: Dyspnea Near syncope Mr. Mckinney is a 61 year old male admitted to ICU 7 from the ED. He works at [employer]. His spouse is at the bedside. He reports he has been taking Ibuprofen 800mg at least BID for approx the last week d/t dental pain for which he is undergoing a root canal. He states on Tuesday he began to have diarrhea with dark red blood. It persisted into Tuesday. He states he has been having nausea, but no vomiting. He reports he made an appt with his PCP, Dr. Breen at [facility]. He states he has been feeling weak and tired for the last couple days. He reports the weakness continued to progress throughout the morning yesterday along with worsening dizziness. He states he was walking to his appt yesterday and the dizziness became more pronounced. He reports he began to feel short of breath. He states he felt as though he may pass out. He sat down promptly in a chair. He reports his blood pressure was taken at [facility] and noted to be low. He received IVF and EMS was called. He reports the shortness of breath was only during the time of the near syncopal episode. He has had no further shortness of breath. He did undergo upper endoscopy last night by Dr. Odell. He reports no CP or palpitations. No c/o LE edema. Review of Systems-Cardiology Review of Systems Constitutional: No chills, No fever, lightheadedness, tiredness, No weight loss , No weight gain Eyes: No vision change Ears/Nose/Throat: No recent hearing loss, other (dental pain) Respiratory: As described under HPI Cardiovascular: As described under HPI Gastrointestinal: As described under HPI Genitourinary: No burning, No dysuria, No hematuria Musculoskeletal: No joint pain, No muscle pain Skin: No rash, No ulcerations Psychiatric/Neurological: No anxiety, No depression, No seizure, No focal weakness Hematologic: No anemia All Other Systems Reviewed Negative Unless Noted: Yes PAG-Uufwgr-Zevtrl Hx Patient Social History Alcohol Use: Regular Use Recreational Drug Use: No Smoking Status: Current Someday Smoker Type Used: Cigars Recent Foreign Travel: No Recent Infectious Disease Expo: No Hospitalization with Isolation: Denies Physical Abuse Screen: No Sexual Abuse: No Immunizations Up To Date Date of Pneumonia Vaccine: Dec 18, 2009 Date of Influenza Vaccine: Jan 17, 2013 Past Medical History PMH As described under Assessment. Family Medical History Family Medical History: He does not report any family h/o premature CAD or SCD. Allergies and Home Medications Allergies Coded Allergies: No Known Drug Allergies (Unverified , 08/17/13) Home Medications Acetaminophen 325 Mg Tablet, 325 MG PO BID, (Reported) Amitriptyline HCl 25 Mg Tablet, 25-50 MG PO HS PRN for SLEEP, (Reported) TAKES 1-2 OF A (25 MG) TABLET Amlodipine Besylate 10 Mg Tablet, 10 MG PO DAILY, (Reported) Aspirin 81 Mg Tablet.dr, 81 MG PO DAILY, (Reported) Atorvastatin Calcium 80 Mg Tablet, 80 MG PO DAILY, (Reported) Cholecalciferol (Vitamin D3) 2,000 Unit Capsule, 2,000 UNIT PO DAILY, (Reported) Dutasteride 0.5 Mg Capsule, 0.5 MG PO DAILY, (Reported) Ibuprofen 200 Mg Tablet, 600 MG PO BID, (Reported) TAKES 3 (200 MG) TABLETS Physical Exam-Cardiology Physical Exam Vital Signs/I&O Vital Sign - Last 12Hours 01/26/17 01/26/17 01/26/17 01/26/17 01:00 01:00 02:00 03:00 Pulse 101 101 75 85 Resp 19 13 16 B/P (MAP) 125/81 108/76 110/63 Pulse Ox 94 92 97 O2 Delivery Nasal Cannula Nasal Cannula Nasal Cannula O2 Flow Rate 2.00 2.00 2.00 01/26/17 01/26/17 01/26/17 01/26/17 04:00 04:00 05:00 06:00 Temp 98.9 Pulse 89 88 79 Resp 11 16 16 B/P (MAP) 120/79 126/75 107/70 Pulse Ox 96 93 91 O2 Delivery Nasal Cannula Nasal Cannula Nasal Cannula Nasal Cannula O2 Flow Rate 2.00 2.00 2.00 2.00 01/26/17 01/26/17 01/26/17 01/26/17 07:00 07:00 07:28 08:00 Pulse 80 80 90 Resp 16 18 B/P (MAP) 124/79 115/76 Pulse Ox 96 97 O2 Delivery Nasal Cannula Nasal Cannula Nasal Cannula O2 Flow Rate 2.00 2.00 2.00 01/26/17 01/26/17 01/26/17 01/26/17 08:50 09:00 10:00 11:00 Pulse 99 97 83 Resp 19 13 25 B/P (MAP) 129/93 125/80 117/74 Pulse Ox 95 96 96 O2 Delivery Nasal Cannula Nasal Cannula Nasal Cannula Nasal Cannula O2 Flow Rate 2.00 2.00 2.00 2.00 Capillary Refill : Less Than 3 Seconds Constitutional: AAO x 3 HEENT: No discharge, No ulceration, No xanthelasmas are seen Neck: No carotid bruit, carotid pulses are 2 + bilaterally Respiratory: No accessory muscle use, No respiratory distress, chest expansion is symmetric, chest is bilaterally symmetric, lungs clear to percussion, lungs clear to auscultation Cardiovascular: regular rate-rhythm, No JVD, S1 and S2 Gastrointestinal: No tender, soft, round, audible bowel sounds (hyperactive) Rectal: deferred Extremities: no lower extremity edema bilateral Neurologic/Psychiatric: grossly intact Skin: pallor, No rash, No ulcerations Data Review Labs Laboratory Tests 01/25/17 17:01: Lab Scanned Report Transfusion Reaction Form 01/25/17 17:55: Hemoglobin 12.6#L, Hematocrit 36L 01/26/17 04:45: Hemoglobin 10.5L, Hematocrit 32L, White Blood Count 12.7H, Red Blood Count 3.62L , Mean Corpuscular Volume 87, Mean Corpuscular Hemoglobin 29, Mean Corpuscular Hemoglobin Concent 33, Red Cell Distribution Width 14.2, Platelet Count 264, Mean Platelet Volume 9.3, Neutrophils (%) (Auto) 73, Lymphocytes (%) (Auto) 16, Monocytes (%) (Auto) 9, Eosinophils (%) (Auto) 2, Basophils (%) (Auto) 0, Neutrophils # (Auto) 9.3H, Lymphocytes # (Auto) 2.1, Monocytes # (Auto) 1.1H, Eosinophils # (Auto) 0.3, Basophils # (Auto) 0.1, Sodium Level 137, Potassium Level 3.8, Chloride Level 105, Carbon Dioxide Level 25, Anion Gap 7, Blood Urea Nitrogen 8, Creatinine 0.81, Estimat Glomerular Filtration Rate > 60, BUN/ Creatinine Ratio 10, Glucose Level 88, Calcium Level 8.0L, Phosphorus Level 2.3 , Magnesium Level 2.6H, Total Bilirubin 0.7, Aspartate Amino Transf (AST/SGOT) 22, Alanine Aminotransferase (ALT/SGPT) 20, Alkaline Phosphatase 56, Total Protein 6.2L, Albumin 3.6 Radiology NAME: ANDRES MCKINNEY [facility] REC#: [id number] PT STATUS: ADM IN : 1955 PHYSICIAN: VIANNEY BASSETT MD ADMIT DATE: 01/24/17/ICU Signed Date of Exam: 01/24/17 CHEST 1 VIEW, AP/PA ONLY INDICATION: Syncope. Frontal chest obtained at 3:04 p.m. FINDINGS: Heart is normal in size. There is a retrocardiac air-fluid level compatible with hiatal hernia. There is no focal infiltrate or pneumothorax or pleural fluid. IMPRESSION: Retrocardiac air-fluid level is present compatible with a prominent hiatal hernia. There is no acute infiltrate or pleural fluid. Dictated by: Dictated on workstation # [id number] Dict: 01/24/17 1520 Trans: 01/24/17 170 Interpreted by: NORMA RODRIGUES MD Electronically signed by: NORMA RODRIGUES MD 01/24/17 1704 ECG Impression ECG Initial ECG Rhythm: Normal Sinus A/P-Cardiology Assessment/Admission Diagnosis Near syncope - likely d/t hypotension d/t hypovolemia Transient episode of dyspnea at time of near syncopal episode - likely related to anemia Echo of 01/25/17: LVEF 65-70%, no significant valvular heart disease, no pericardial effusion HTN HLP - statin tx. - followed by his PCP Anemia - d/t GI bleed - management per medical/surgical services GI bleed - upper endoscopy on 01-24-[address] 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 Guy approx 3 years ago Discussion and Recomendations Near syncopal episode likely d/t hypotension d/t hypovolemia. GI bleed which is being managed by surgical/medical services. He has already undergone upper endoscopy with sclerotherapy by Dr. Odell. Anemia is being managed by medical /surgical services. Monitor lab closely. Hold antihypertensives for now. Further recommendations will be based on his hospital course. We would like to thank medical services for this consult. This consult is being scribed by Asher Mann APRN on behalf of Dr. Solo after discussion regarding plan of care. Clinical Quality Measures DVT/VTE Risk/Contraindication: Risk Factor Score Per Nursin RFS Level Per Nursing on Admit: 1=Low/No VTE PPX Physician Assessment Physician Assessment PT SEEN AND EXAMINED AT 10 AM ON 01/25/17 (SIGNED ON 01/26/17) No cp or palp or syncope Lungs: clear Cor: reg Ext: no c/c/e Echo on 01/25/17: as noted above A&R * As documented in our note above that I updated (italics) and as noted below * Transfusion (in process) * Monitor labs * No card meds * I discussed his case with him, his , and with ABRAHAM Cutler Jan 25, 2017 09:59 DANYEL SOLO MD [facility] Jan 26, 2017 12:47
--- NOTE | 2017-01-25 10:39 | Progress Note-Standard ---
Standard Progress Note Progress Notes/Assess & Plan Time Seen by Provider: 10:38 Progress/Assessment & Plan consulted to ice for [place]O cardioversion. pt NPO since midnight. on monitor with ETCO2. 5mg versed and 20mg propofol given iv. pt tolerated procedure well. KALEIGH STARKEY SENIOR RESIDENT CARE DIRECTOR Jan 25, 2017 10:39
[2017-01-25] MEDS: ATORVASTATIN 80 MG (LIPITOR) TABLET PO SCH (11:03)
[2017-01-26] VITALS (16 sets, daily range): BP systolic 107–135; BP diastolic 61–93
[2017-01-26] MEDS: NS IV 1000 ML 1,000 ML IV SCH ×2 (04:21→17:07)
[2017-01-26 05:23] LABS: BASOPHILS # (AUTO) 0.1 10^3/uL (0.0-0.1); BASOPHILS % (AUTO) 0 % (0-10); EOSINOPHILS # (AUTO) 0.3 10^3/uL (0.0-0.3); EOSINOPHILS % (AUTO) 2 % (0-10); LYMPHOCYTES # (AUTO) 2.1 X 10^3 (1.0-4.0); LYMPHOCYTES % (AUTO) 16 % (12-44); MEAN CORPUSCULAR HEMOGLOBIN 29 PG (25-34); MEAN CORPUSCULAR HGB CONC 33 G/DL (32-36); MEAN CORPUSCULAR VOLUME 87 FL (80-99); MEAN PLATELET VOLUME 9.3 FL (7.4-10.4); MONOCYTES # (AUTO) 1.1 X 10^3 (0.0-1.0); MONOCYTES % (AUTO) 9 % (0-12); NEUTROPHILS # (AUTO) 9.3 X 10^3 (1.8-7.8); NEUTROPHILS % (AUTO) 73 % (42-75); PLATELET COUNT 264 10^3/uL (130-400); RED BLOOD COUNT 3.62 10^6/uL (4.35-5.85); RED CELL DISTRIBUTION WIDTH 14.2 % (10.0-14.5); WHITE BLOOD COUNT 12.7 10^3/uL (4.3-11.0)
[2017-01-26] MEDS: CATHETER FLUSH 10 ML SYR IV SCH ×2 (05:33→14:01)
[2017-01-26 05:44] LABS: ALANINE AMINOTRANSFERASE 20 U/L (0-55); ALBUMIN 3.6 GM/DL (3.2-4.5); ANION GAP 7 MMOL/L (5-14); ASPARTATE AMINO TRANSFERASE 22 U/L (5-34); BILIRUBIN,TOTAL 0.7 MG/DL (0.1-1.0); BLOOD UREA NITROGEN 8 MG/DL (7-18); BUN/CREATININE RATIO 10; CARBON DIOXIDE 25 MMOL/L (21-32); CHLORIDE 105 MMOL/L (98-107); CREATININE SERUM 0.81 MG/DL (0.60-1.30); GFR ESTIMATED > 60; GLUCOSE 88 MG/DL (70-105); MAGNESIUM 2.6 MG/DL (1.8-2.4); PHOSPHORUS 2.3 MG/DL (2.3-4.7); POTASSIUM 3.8 MMOL/L (3.6-5.0); SODIUM 137 MMOL/L (135-145); TOTAL PROTEIN 6.2 GM/DL (6.4-8.2)
--- NOTE | 2017-01-26 07:27 | Progress Note (SOAP) ---
Subjective Subjective/Events-last exam The patient reports that he is feeling much better this morning. He reports that really the only thing that bothers him this morning is a broken tooth that he has. The patient reports that he took a week of Amoxicillin last week and received another prescription for it on Tuesday, but did not start it due to the events that led to his current hospitalization. He completed his colonoscopy prep and had no bloody bowel movements. No acute events overnight. No concerns from the nursing staff. Review of Systems Date Seen by Provider: Jan 26, 2017 Time Seen by Provider: 10:00 General: No Chills, No Night Sweats, No Fatigue HEENT: No Head Aches, No Visual Changes, No Eye Pain, No Ear Pain, No Sore Throat, Other (tooth pain) Pulmonary: No Dyspnea, No Cough Cardiovascular: No: Chest Pain, Palpitations, Orthopnea, Edema Gastrointestinal: No: Nausea, Vomiting, Abdominal Pain, Constipation Genitourinary: No Dysuria, No Frequency Musculoskeletal: No: neck pain, back pain Neurological: No: Weakness, Numbness, Change in speech, Seizures Objective Exam Last Set of Vital Signs Vital Signs Date Time Temp Pulse Resp B/P (MAP) Pulse Ox O2 Delivery O2 Flow Rate FiO2 01/26/17 06:00 79 16 107/70 91 Nasal Cannula 2.00 01/26/17 04:00 98.9 Capillary Refill : Less Than 3 Seconds I&O Intake and Output 01/27/17 00:00 Intake Total 1000 ml Balance 1000 ml Intake Oral 0 ml IV Total 1000 ml # Voids 3 # Bowel Movements 1 General: Alert, Oriented X3, Cooperative, No Acute Distress HEENT: Atraumatic, EOMI, Mucous Memb Moist/[place] Neck: Supple, No Thyromegaly Lungs: Clear to Auscultation, Normal Air Movement Heart: Regular Rate, Normal S1, Normal S2, No Murmurs, Other (normal sinus rhythm per telemetry) Abdomen: Normal Bowel Sounds, Soft, No Tenderness, No Masses Extremities: No Clubbing, No Cyanosis, No Edema, Normal Pulses, No Tenderness/ Swelling Skin: No Rashes, No Breakdown, No Significant Lesion Neuro: Normal Gait, Normal Speech, Normal Tone, Sensation Intact, Cranial Nerves 3-12 NL Psych/Mental Status: Mental Status NL, Mood NL Results/Procedures Lab Laboratory Tests 01/25/17 17:01: Lab Scanned Report Transfusion Reaction Form 01/25/17 17:55: Hemoglobin 12.6#L, Hematocrit 36L 01/26/17 04:45: Hemoglobin 10.5L, Hematocrit 32L, White Blood Count 12.7H, Red Blood Count 3.62L , Mean Corpuscular Volume 87, Mean Corpuscular Hemoglobin 29, Mean Corpuscular Hemoglobin Concent 33, Red Cell Distribution Width 14.2, Platelet Count 264, Mean Platelet Volume 9.3, Neutrophils (%) (Auto) 73, Lymphocytes (%) (Auto) 16, Monocytes (%) (Auto) 9, Eosinophils (%) (Auto) 2, Basophils (%) (Auto) 0, Neutrophils # (Auto) 9.3H, Lymphocytes # (Auto) 2.1, Monocytes # (Auto) 1.1H, Eosinophils # (Auto) 0.3, Basophils # (Auto) 0.1, Sodium Level 137, Potassium Level 3.8, Chloride Level 105, Carbon Dioxide Level 25, Anion Gap 7, Blood Urea Nitrogen 8, Creatinine 0.81, Estimat Glomerular Filtration Rate > 60, BUN/ Creatinine Ratio 10, Glucose Level 88, Calcium Level 8.0L, Phosphorus Level 2.3 , Magnesium Level 2.6H, Total Bilirubin 0.7, Aspartate Amino Transf (AST/SGOT) 22, Alanine Aminotransferase (ALT/SGPT) 20, Alkaline Phosphatase 56, Total Protein 6.2L, Albumin 3.6 Radiology NAME: ANDRES [facility] REC#: [id number] PT STATUS: ADM IN : 1955 PHYSICIAN: VIANNEY BASSETT MD ADMIT DATE: 01/24/17/ICU Signed Date of Exam: 01/24/17 CHEST 1 VIEW, AP/PA ONLY INDICATION: Syncope. Frontal chest obtained at 3:04 p.m. FINDINGS: Heart is normal in size. There is a retrocardiac air-fluid level compatible with hiatal hernia. There is no focal infiltrate or pneumothorax or pleural fluid. IMPRESSION: Retrocardiac air-fluid level is present compatible with a prominent hiatal hernia. There is no acute infiltrate or pleural fluid. Dictated by: Dictated on workstation # [id number] Dict: 01/24/17 1520 Trans: 01/24/171704 Interpreted by: NORMA RODRIGUES MD Electronically signed by: NORMA RODRIGUES MD 01/24/176 Assessment/Plan Assessment/Plan Admission Dx GI Bleed Anemia Syncope Hx HTN Hx Anxiety Plan The patient has a stable Hgb this AM after receiving two units of PRBC yesterday AM> He is going to have a colonoscopy at 12:[address] Odell to see if there is any identified source of the bleeding in his lower GI tract. He has had no further bleeding since his admission. He did report this morning that he just completed a week of PO antibiotics for an infected tooth, so we will check him for c diff -- while it is not likely that c diff colitis would cause such a significant bleed, it is not impossible, and will therefore be checked for. From a medical standpoint, the patient is doing well and is stable, he could likely be transferred to the floor pending the results of his colonoscopy and the opinion of the surgical team later today. Given that the patient has been admitted for an acute bleed, chemical DVT prophylaxis is being held at this time and SCDs are being used. The patient is also encouraged to ambulate to and from the bedside commode to help to decrease his risk of a clot. CONDITION: STABLE CODE STATUS: FULL Clinical Quality Measures DVT/VTE Risk/Contraindication: Risk Factor Score Per Nursin RFS Level Per Nursing on Admit: 1=Low/No VTE PPX HERLINDA NEIL DO Jan 26, 2017 07:27
[2017-01-26] MEDS: PANTOPRAZOLE INJECTION 200 MG in NS (IVPB) 50 ML IV SCH (09:09)
[2017-01-26] MEDS ORDERED: PROPOFOL INJECTION 50 ML IV ONE (12:37)
[2017-01-26] MEDS ORDERED: MIDAZOLAM 2 MG/2 ML (VERSED) VIAL ONE (12:37)
--- NOTE | 2017-01-26 12:42 | Progress Note (SOAP) ---
Subjective Date Seen by Provider: Jan 25, 2017 Time Seen by Provider: 06:50 Subjective/Events-last exam fatigue improved. Hemoglobin decreased to around 7 g and therefore transfusion pending. Dark red blood per rectum continues. Bowel preparation in progress hemodynamics stable Review of Systems General: Fatigue HEENT: No Head Aches, No Eye Pain, No Ear Pain, No Dysphasia, No Sinus Congestion, No Post Nasal Drip, No Sore Throat Pulmonary: No Dyspnea, No Cough, No Pleuritic Chest Pain Cardiovascular: No: Chest Pain, Palpitations, Orthopnea, Paroxysmal Noc. Dyspnea, Edema, Lt Headedness Gastrointestinal: Diarrhea, Hematochezia Genitourinary: No Dysuria, No Frequency, No Incontinence, No Hematuria, No Retention Musculoskeletal: No: other, neck pain, shoulder pain, arm pain, back pain, hand pain, leg pain, foot pain Neurological: No: Weakness, Numbness, Incoordination, Change in speech, Confusion, Seizures, Other Objective Exam Vital Signs Date Time Temp Pulse Resp B/P (MAP) Pulse Ox O2 Delivery O2 Flow Rate FiO2 01/26/17 11:00 83 25 117/74 96 Nasal Cannula 2.00 01/26/17 10:00 97 13 125/80 96 Nasal Cannula 2.00 01/26/17 09:00 99 19 129/93 95 Nasal Cannula 2.00 01/26/17 08:50 Nasal Cannula 2.00 01/26/17 08:00 90 18 115/76 97 Nasal Cannula 2.00 01/26/17 07:28 Nasal Cannula 2.00 01/26/17 07:00 80 01/26/17 07:00 80 16 124/79 96 Nasal Cannula 2.00 01/26/17 06:00 79 16 107/70 91 Nasal Cannula 2.00 01/26/17 05:00 88 16 126/75 93 Nasal Cannula 2.00 01/26/17 04:00 Nasal Cannula 2.00 01/26/17 04:00 98.9 89 11 120/79 96 Nasal Cannula 2.00 01/26/17 03:00 85 16 110/63 97 Nasal Cannula 2.00 01/26/17 02:00 75 13 108/76 92 Nasal Cannula 2.00 01/26/17 01:00 101 19 125/81 94 Nasal Cannula 2.00 01/26/17 01:00 101 01/26/17 00:00 98.9 80 17 120/77 97 Nasal Cannula 2.00 01/26/17 00:00 Nasal Cannula 2.00 01/25/17 23:35 84 15 97 Nasal Cannula 2.00 01/25/17 23:00 83 15 107/72 91 Room Air 01/25/17 22:00 87 21 122/73 93 Room Air 01/25/17 21:00 107 21 134/69 94 Room Air 01/25/17 20:00 95 Room Air 01/25/17 20:00 97.7 101 17 125/80 94 Room Air 01/25/17 19:00 102 01/25/17 19:00 102 19 116/90 96 Room Air 01/25/17 18:00 106 16 125/87 97 Room Air 01/25/17 17:00 98.3 102 28 129/72 95 Room Air 01/25/17 16:50 95 Room Air 01/25/17 16:00 93 19 123/77 91 Room Air 01/25/17 15:00 97 19 120/76 97 Room Air 01/25/17 14:00 104 12 120/76 94 Room Air 01/25/17 13:00 99 01/25/17 13:00 100 22 116/88 94 Room Air 01/25/17 12:43 98.2 101 20 114/66 Nasal Cannula 2.00 Capillary Refill : Less Than 3 Seconds General Appearance: No Apparent Distress HEENT: Normal ENT Inspection Neck: Normal Inspection Cardiovascular: Regular Rate, Rhythm Gastrointestinal: non tender, soft Extremity: Normal Inspection, No Calf Tenderness Neurologic/Psychiatric: Oriented x3 Skin: Warm/Dry Results Lab Laboratory Tests 01/25/17 17:01: Lab Scanned Report Transfusion Reaction Form 01/25/17 17:55: Hemoglobin 12.6#L, Hematocrit 36L 01/26/17 04:45: Hemoglobin 10.5L, Hematocrit 32L, White Blood Count 12.7H, Red Blood Count 3.62L , Mean Corpuscular Volume 87, Mean Corpuscular Hemoglobin 29, Mean Corpuscular Hemoglobin Concent 33, Red Cell Distribution Width 14.2, Platelet Count 264, Mean Platelet Volume 9.3, Neutrophils (%) (Auto) 73, Lymphocytes (%) (Auto) 16, Monocytes (%) (Auto) 9, Eosinophils (%) (Auto) 2, Basophils (%) (Auto) 0, Neutrophils # (Auto) 9.3H, Lymphocytes # (Auto) 2.1, Monocytes # (Auto) 1.1H, Eosinophils # (Auto) 0.3, Basophils # (Auto) 0.1, Sodium Level 137, Potassium Level 3.8, Chloride Level 105, Carbon Dioxide Level 25, Anion Gap 7, Blood Urea Nitrogen 8, Creatinine 0.81, Estimat Glomerular Filtration Rate > 60, BUN/ Creatinine Ratio 10, Glucose Level 88, Calcium Level 8.0L, Phosphorus Level 2.3 , Magnesium Level 2.6H, Total Bilirubin 0.7, Aspartate Amino Transf (AST/SGOT) 22, Alanine Aminotransferase (ALT/SGPT) 20, Alkaline Phosphatase 56, Total Protein 6.2L, Albumin 3.6 Assessment/Plan Assessment/Plan Assess & Plan/Chief Complaint gentleman with GI bleeding. Upper GI source more likely. Reasonable to perform an upper endoscopy this evening. He may require colonoscopy subsequently. Hemoglobin will be observed closely and transfusion instituted if below 8 g gentleman with GI bleeding. Possibly diverticular in origin. Colonoscopy scheduled provisionally for tomorrow. Final Diagnosis GI bleeding Clinical Quality Measures DVT/VTE Risk/Contraindication: Risk Factor Score Per Nursin RFS Level Per Nursing on Admit: 1=Low/No VTE PPX DARLENE MOTLEY MD Jan 26, 2017 12:42 pm
--- NOTE | 2017-01-26 12:47 | Progress Note (SOAP) ---
Subjective Date Seen by Provider: Jan 26, 2017 Time Seen by Provider: 11:45 Subjective/Events-last exam Patient is seen today in no acute distress. Patient has no new complaints. Patient reports that he continued to have bright red blood in his stool last night but that it stopped this morning. Patient reports that his bowel preparation for his colonoscopy went fine. Review of Systems General: Fatigue HEENT: No Head Aches, No Visual Changes, No Eye Pain, No Ear Pain, No Dysphasia , No Sinus Congestion, No Post Nasal Drip, No Sore Throat, No Other Pulmonary: No Dyspnea, No Cough, No Pleuritic Chest Pain, No Other Cardiovascular: No: Chest Pain, Palpitations, Orthopnea, Paroxysmal Noc. Dyspnea, Edema, Lt Headedness, Other Gastrointestinal: Diarrhea, Melena Genitourinary: No Dysuria, No Frequency, No Incontinence, No Hematuria, No Retention, No Other Musculoskeletal: No: other, neck pain, shoulder pain, arm pain, back pain, hand pain, leg pain, foot pain Neurological: No: Weakness, Numbness, Incoordination, Change in speech, Confusion, Seizures, Other Objective Exam Vital Signs Date Time Temp Pulse Resp B/P (MAP) Pulse Ox O2 Delivery O2 Flow Rate FiO2 01/26/17 11:00 83 25 117/74 96 Nasal Cannula 2.00 01/26/17 10:00 97 13 125/80 96 Nasal Cannula 2.00 01/26/17 09:00 99 19 129/93 95 Nasal Cannula 2.00 01/26/17 08:50 Nasal Cannula 2.00 01/26/17 08:00 90 18 115/76 97 Nasal Cannula 2.00 01/26/17 07:28 Nasal Cannula 2.00 01/26/17 07:00 80 01/26/17 07:00 80 16 124/79 96 Nasal Cannula 2.00 01/26/17 06:00 79 16 107/70 91 Nasal Cannula 2.00 01/26/17 05:00 88 16 126/75 93 Nasal Cannula 2.00 01/26/17 04:00 Nasal Cannula 2.00 01/26/17 04:00 98.9 89 11 120/79 96 Nasal Cannula 2.00 01/26/17 03:00 85 16 110/63 97 Nasal Cannula 2.00 01/26/17 02:00 75 13 108/76 92 Nasal Cannula 2.00 01/26/17 01:00 101 19 125/81 94 Nasal Cannula 2.00 01/26/17 01:00 101 01/26/17 00:00 98.9 80 17 120/77 97 Nasal Cannula 2.00 01/26/17 00:00 Nasal Cannula 2.00 01/25/17 23:35 84 15 97 Nasal Cannula 2.00 01/25/17 23:00 83 15 107/72 91 Room Air 01/25/17 22:00 87 21 122/73 93 Room Air 01/25/17 21:00 107 21 134/69 94 Room Air 01/25/17 20:00 95 Room Air 01/25/17 20:00 97.7 101 17 125/80 94 Room Air 01/25/17 19:00 102 01/25/17 19:00 102 19 116/90 96 Room Air 01/25/17 18:00 106 16 125/87 97 Room Air 01/25/17 17:00 98.3 102 28 129/72 95 Room Air 01/25/17 16:50 95 Room Air 01/25/17 16:00 93 19 123/77 91 Room Air 01/25/17 15:00 97 19 120/76 97 Room Air 01/25/17 14:00 104 12 120/76 94 Room Air 01/25/17 13:00 99 01/25/17 13:00 100 22 116/88 94 Room Air 01/25/17 12:43 98.2 101 20 114/66 Nasal Cannula 2.00 Capillary Refill : Less Than 3 Seconds General Appearance: No Apparent Distress, WD/WN Neck: Full Range of Motion Neurologic/Psychiatric: Alert, Oriented x3, No Motor/Sensory Deficits Skin: Normal Color, Warm/Dry Results Lab Laboratory Tests 01/25/17 17:01: Lab Scanned Report Transfusion Reaction Form 01/25/17 17:55: Hemoglobin 12.6#L, Hematocrit 36L 01/26/17 04:45: Hemoglobin 10.5L, Hematocrit 32L, White Blood Count 12.7H, Red Blood Count 3.62L , Mean Corpuscular Volume 87, Mean Corpuscular Hemoglobin 29, Mean Corpuscular Hemoglobin Concent 33, Red Cell Distribution Width 14.2, Platelet Count 264, Mean Platelet Volume 9.3, Neutrophils (%) (Auto) 73, Lymphocytes (%) (Auto) 16, Monocytes (%) (Auto) 9, Eosinophils (%) (Auto) 2, Basophils (%) (Auto) 0, Neutrophils # (Auto) 9.3H, Lymphocytes # (Auto) 2.1, Monocytes # (Auto) 1.1H, Eosinophils # (Auto) 0.3, Basophils # (Auto) 0.1, Sodium Level 137, Potassium Level 3.8, Chloride Level 105, Carbon Dioxide Level 25, Anion Gap 7, Blood Urea Nitrogen 8, Creatinine 0.81, Estimat Glomerular Filtration Rate > 60, BUN/ Creatinine Ratio 10, Glucose Level 88, Calcium Level 8.0L, Phosphorus Level 2.3 , Magnesium Level 2.6H, Total Bilirubin 0.7, Aspartate Amino Transf (AST/SGOT) 22, Alanine Aminotransferase (ALT/SGPT) 20, Alkaline Phosphatase 56, Total Protein 6.2L, Albumin 3.6 Assessment/Plan Assessment/Plan Assess & Plan/Chief Complaint Assessment/Plan Gastrointestinal Bleed -likely 2/2 to diverticular bleeding -s/p endoscopy 01/24/17 -s/p 2 units of RBC, hemoglobin stable today @ 8.5 -continue to monitor hemoglobin -colonoscopy this afternoon -floor status this PM Final Diagnosis GI Bleed Clinical Quality Measures DVT/VTE Risk/Contraindication: Risk Factor Score Per Nursin RFS Level Per Nursing on Admit: 1=Low/No VTE KJ PALAFOX MED STUDENT Jan 26, 2017 12:47
[2017-01-26] MEDS ORDERED: LACTATED RINGERS 1,000 ML IV ONE ×2 (12:50→13:15)
--- NOTE | 2017-01-26 12:51 | Progress Note-Cardiology ---
Cardiology SOAP Progress Note Subjective: No cp, palp, syncope or shortness of breath. Feels better than yesterday Objective: I&O/Vital Signs Vital Sign - Last 12Hours 01/26/17 01/26/17 01/26/17 01/26/17 01:00 01:00 02:00 03:00 Pulse 101 101 75 85 Resp 19 13 16 B/P (MAP) 125/81 108/76 110/63 Pulse Ox 94 92 97 O2 Delivery Nasal Cannula Nasal Cannula Nasal Cannula O2 Flow Rate 2.00 2.00 2.00 01/26/17 01/26/17 01/26/17 01/26/17 04:00 04:00 05:00 06:00 Temp 98.9 Pulse 89 88 79 Resp 11 16 16 B/P (MAP) 120/79 126/75 107/70 Pulse Ox 96 93 91 O2 Delivery Nasal Cannula Nasal Cannula Nasal Cannula Nasal Cannula O2 Flow Rate 2.00 2.00 2.00 2.00 01/26/17 01/26/17 01/26/17 01/26/17 07:00 07:00 07:28 08:00 Pulse 80 80 90 Resp 16 18 B/P (MAP) 124/79 115/76 Pulse Ox 96 97 O2 Delivery Nasal Cannula Nasal Cannula Nasal Cannula O2 Flow Rate 2.00 2.00 2.00 01/26/17 01/26/17 01/26/17 01/26/17 08:50 09:00 10:00 11:00 Pulse 99 97 83 Resp 19 13 25 B/P (MAP) 129/93 125/80 117/74 Pulse Ox 95 96 96 O2 Delivery Nasal Cannula Nasal Cannula Nasal Cannula Nasal Cannula O2 Flow Rate 2.00 2.00 2.00 2.00 01/26/17 12:05 O2 Delivery Room Air Weight (Pounds): 192 Weight (Ounces): 8.0 Weight (Calculated Kilograms): 87.906898 Constitutional: AAO x 3 Respiratory: No accessory muscle use, No respiratory distress, chest expansion is symmetric, chest is bilaterally symmetric, lungs clear to percussion, lungs clear to auscultation Cardiovascular: regular rate-rhythm, No JVD, S1 and S2 Gastrointestional: No tender, soft, round, audible bowel sounds (hyperactive) Extremities: no lower extremity edema bilateral Neurologic/Psychiatric: grossly intact Skin: pallor, No rash, No ulcerations Results/Procedures: Labs Laboratory Tests 01/25/17 17:01: Lab Scanned Report Transfusion Reaction Form 01/25/17 17:55: Hemoglobin 12.6#L, Hematocrit 36L 01/26/17 04:45: Hemoglobin 10.5L, Hematocrit 32L, White Blood Count 12.7H, Red Blood Count 3.62L , Mean Corpuscular Volume 87, Mean Corpuscular Hemoglobin 29, Mean Corpuscular Hemoglobin Concent 33, Red Cell Distribution Width 14.2, Platelet Count 264, Mean Platelet Volume 9.3, Neutrophils (%) (Auto) 73, Lymphocytes (%) (Auto) 16, Monocytes (%) (Auto) 9, Eosinophils (%) (Auto) 2, Basophils (%) (Auto) 0, Neutrophils # (Auto) 9.3H, Lymphocytes # (Auto) 2.1, Monocytes # (Auto) 1.1H, Eosinophils # (Auto) 0.3, Basophils # (Auto) 0.1, Sodium Level 137, Potassium Level 3.8, Chloride Level 105, Carbon Dioxide Level 25, Anion Gap 7, Blood Urea Nitrogen 8, Creatinine 0.81, Estimat Glomerular Filtration Rate > 60, BUN/ Creatinine Ratio 10, Glucose Level 88, Calcium Level 8.0L, Phosphorus Level 2.3 , Magnesium Level 2.6H, Total Bilirubin 0.7, Aspartate Amino Transf (AST/SGOT) 22, Alanine Aminotransferase (ALT/SGPT) 20, Alkaline Phosphatase 56, Total Protein 6.2L, Albumin 3.6 Laboratory Tests 01/24/17 14:40 01/24/17 20:10 01/25/17 04:20 01/25/17 17:55 01/26/17 04:45 A/P: Assessment: Near syncope - likely d/t hypotension d/t hypovolemia Transient episode of dyspnea at time of near syncopal episode - likely related to anemia Echo of 01/25/17: LVEF 65-70%, no significant valvular heart disease, no pericardial effusion HTN HLP - statin tx. - followed by his PCP Anemia - d/t GI bleed - management per medical/surgical services GI bleed - upper endoscopy on 01-24-[address] 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 Guy approx 3 years ago Plan: * Continue current regimen * Monitor labs * No cardiac meds OWEN READ MD FACP FAC CCDS Jan 26, 2017 12:51
--- NOTE | 2017-01-26 13:26 | Endo Procedure Record ---
Endo Procedure Report Date of Procedure Jan 26, 2017 Surgeon (s) DARLENE MOTLEY MD Post Procedure/Op Diagnosis diffuse diverticulosis. Clots within the diverticula in the sigmoid colon. No active bleeding encountered. No blood seen at the ileocecal valve Procedure Performed colonoscopy to cecum Description of Procedure Anesthesia Type: Conscious Sedation Specimen(s) collected/removed none Description of the Procedure Indication for the procedure: This gentleman has been admitted with GI bleeding of unknown origin. Upper endoscopy revealed nonbleeding distal gastric erosions. As part of ongoing evaluation, colonoscopy was felt to be reasonable. informed consent was obtained after reviewing the procedure in detail. Description of the procedure: He was brought to the endoscopy suite and conscious sedation achieved using propofol infusion by our TANK FURNACE OPERATOR. Digital rectal examination was unremarkable. The colonoscope was then introduced in the rectum and advanced with some difficulty to the ileocecal valve. The quality of bowel preparation was reasonable The scope was then withdrawn slowly and the mucosa examined in a systematic fashion. Findings: Diffuse diverticulosis all the way up to the ascending colon. The ones over the sigmoid colon contained a few clots with no active bleeding. There was no blood noticed at the ileocecal valve. He tolerated the procedure well and was taken back to the nursing area in a stable condition. Impression: GI bleeding possibly diverticular in origin. Currently stable and therefore we will observe. If rebleeding takes place, his small bowel will be investigated with a CT scan followed by either a capsule endoscopy or an arteriogram, depending on the degree of bleeding. Copies To: HERLINDA NEIL DO Copies To: BENY ALY MD, XAVIER M MD Jan 26, 2017 1:26 pm
[2017-01-26] MEDS ORDERED: HYDROcodone/APAP 5 MG/325 MG (LORTAB) TAB PO PRN (13:30)
[2017-01-26] MEDS: ATORVASTATIN 80 MG (LIPITOR) TABLET PO SCH (14:01)
[2017-01-27] VITALS: BP 108/67
[2017-01-27] MEDS: CATHETER FLUSH 10 ML SYR IV SCH ×2 (00:45→05:33)
[2017-01-27 04:00] VITALS: BP 124/77
[2017-01-27] MEDS: NS IV 1000 ML 1,000 ML IV SCH (06:36)
[2017-01-27 06:37] LABS: BASOPHILS % (AUTO) 0 % (0-10); EOSINOPHILS # (AUTO) 0.3 10^3/uL (0.0-0.3); EOSINOPHILS % (AUTO) 2 % (0-10); LYMPHOCYTES # (AUTO) 1.7 X 10^3 (1.0-4.0); LYMPHOCYTES % (AUTO) 13 % (12-44); MEAN CORPUSCULAR HEMOGLOBIN 30 PG (25-34); MEAN CORPUSCULAR HGB CONC 33 G/DL (32-36); MEAN CORPUSCULAR VOLUME 88 FL (80-99); MEAN PLATELET VOLUME 9.2 FL (7.4-10.4); MONOCYTES # (AUTO) 1.1 X 10^3 (0.0-1.0); MONOCYTES % (AUTO) 8 % (0-12); NEUTROPHILS # (AUTO) 9.9 X 10^3 (1.8-7.8); NEUTROPHILS % (AUTO) 76 % (42-75); PLATELET COUNT 293 10^3/uL (130-400); RED BLOOD COUNT 3.49 10^6/uL (4.35-5.85); RED CELL DISTRIBUTION WIDTH 14.1 % (10.0-14.5); WHITE BLOOD COUNT 12.9 10^3/uL (4.3-11.0)
[2017-01-27 07:03] LABS: ANION GAP 8 MMOL/L (5-14); BLOOD UREA NITROGEN 7 MG/DL (7-18); BUN/CREATININE RATIO 9; CALCIUM 8.1 MG/DL (8.5-10.1); CARBON DIOXIDE 22 MMOL/L (21-32); CHLORIDE 109 MMOL/L (98-107); CREATININE SERUM 0.77 MG/DL (0.60-1.30); GFR ESTIMATED > 60; GLUCOSE 86 MG/DL (70-105); POTASSIUM 3.9 MMOL/L (3.6-5.0); SODIUM 139 MMOL/L (135-145)
[2017-01-27 08:00] VITALS: BP 139/73
--- NOTE | 2017-01-27 08:20 | Progress Note (SOAP) ---
Subjective Date Seen by Provider: Jan 27, 2017 Time Seen by Provider: 08:00 Subjective/Events-last exam Patient is seen today in no acute distress. Patient had no acute events overnight and has no new complaints today. Patient reports that he is feeling "fine" and his fatigue is stable from yesterday. Patient states he has not had any blood in his stool for the past 24 hours. Patient has an appetite and is tolerating his diet. Patient states that his tooth pain persists, it is a 2/10, and he will follow-up with his dentist once he is discharged. Patient denies headache, chest pain, shortness of breath, diarrhea, and constipation. Review of Systems General: Fatigue HEENT: No Head Aches, No Visual Changes, No Eye Pain, No Ear Pain, No Dysphasia , No Sinus Congestion, No Post Nasal Drip, No Sore Throat, No Other Pulmonary: No Dyspnea, No Cough, No Pleuritic Chest Pain, No Other Cardiovascular: No: Chest Pain, Palpitations, Orthopnea, Paroxysmal Noc. Dyspnea, Edema, Lt Headedness, Other Gastrointestinal: No: Nausea, Vomiting, Abdominal Pain, Diarrhea, Constipation , Melena, Hematochezia, Other Genitourinary: No Dysuria, No Frequency, No Incontinence, No Hematuria, No Retention, No Other Objective Exam Vital Signs Date Time Temp Pulse Resp B/P (MAP) Pulse Ox O2 Delivery O2 Flow Rate FiO2 01/27/17 08:00 98.6 96 18 139/73 95 Room Air 01/27/17 04:00 99.5 92 16 124/77 96 Room Air 01/27/17 00:00 98.9 87 14 108/67 95 Room Air 01/26/17 19:54 99.3 104 18 122/68 95 Nasal Cannula 2.00 01/26/17 16:00 98.0 102 18 112/61 93 Nasal Cannula 2.00 01/26/17 13:45 98.4 84 20 123/70 93 Nasal Cannula 2.00 01/26/17 12:05 Room Air 01/26/17 12:00 88 13 135/80 95 Nasal Cannula 2.00 01/26/17 11:00 83 25 117/74 96 Nasal Cannula 2.00 01/26/17 10:00 97 13 125/80 96 Nasal Cannula 2.00 01/26/17 09:00 99 19 129/93 95 Nasal Cannula 2.00 01/26/17 08:50 Nasal Cannula 2.00 Capillary Refill : Less Than 3 Seconds General Appearance: No Apparent Distress, WD/WN Neck: Full Range of Motion, Normal Inspection Respiratory: Chest Non Tender, Lungs Clear, Normal Breath Sounds, No Accessory Muscle Use, No Respiratory Distress Cardiovascular: Regular Rate, Rhythm, No Edema, No Gallop, No JVD, No Murmur Gastrointestinal: normal bowel sounds, non tender, soft, no organomegaly, no pulsatile mass Neurologic/Psychiatric: Alert, Oriented x3, Normal Mood/Affect Skin: Normal Color, Warm/Dry Results Lab Laboratory Tests 01/27/17 06:20: White Blood Count 12.9H, Red Blood Count 3.49L, Hemoglobin 10.3L, Hematocrit 31L , Mean Corpuscular Volume 88, Mean Corpuscular Hemoglobin 30, Mean Corpuscular Hemoglobin Concent 33, Red Cell Distribution Width 14.1, Platelet Count 293, Mean Platelet Volume 9.2, Neutrophils (%) (Auto) 76H, Lymphocytes (%) (Auto) 13 , Monocytes (%) (Auto) 8, Eosinophils (%) (Auto) 2, Basophils (%) (Auto) 0, Neutrophils # (Auto) 9.9H, Lymphocytes # (Auto) 1.7, Monocytes # (Auto) 1.1H, Eosinophils # (Auto) 0.3, Basophils # (Auto) 0.0, Sodium Level 139, Potassium Level 3.9, Chloride Level 109H, Carbon Dioxide Level 22, Anion Gap 8, Blood Urea Nitrogen 7, Creatinine 0.77, Estimat Glomerular Filtration Rate > 60, BUN/ Creatinine Ratio 9, Glucose Level 86, Calcium Level 8.1L, Magnesium Level 2.0 Microbiology 01/26/17 C. difficile GD Antigen & Toxins - Final, Complete Assessment/Plan Assessment/Plan Assess & Plan/Chief Complaint Assessment/Plan Gastrointestinal Bleed -likely 2/2 to diverticular bleeding, if bleeding persists after discharge, will investigate his small bowel with arteriogram or pill endoscopy -s/p endoscopy 01/24/17, s/p colonoscopy 01/26/17 -s/p 2 units of RBC, hemoglobin stable today @ 10.3 -plan for discharge Final Diagnosis GI bleed Clinical Quality Measures DVT/VTE Risk/Contraindication: Risk Factor Score Per Nursin RFS Level Per Nursing on Admit: 1=Low/No VTE PPX KJ SANCHEZ MED STUDENT Jan 27, 2017 08:19
[2017-01-27] MEDS: ATORVASTATIN 80 MG (LIPITOR) TABLET PO SCH (08:36)
--- NOTE | 2017-01-27 10:21 | Discharge Summary ---
Diagnosis/Chief Complaint Date of Admission Jan 24, 2017 at 15:50 Date of Discharge Chief Complaint/HPI Chief Complaint/HPI The patient is a 61-year-old male who presented to the clinic with complaints of diarrhea and blood in his stool, he was noted to be extremely pale as well as having had a syncopal episode. He was sent by ambulance to the emergency department where he was found to be severely anemic which was suspected to be due to a GI bleed based on his report of blood in his stool as no other obvious source of rik bleeding. General Surgery was consulted for immediate evaluate of the patient. Per records from the clinic, it appears the patient's baseline hemoglobin one year ago was 15.2, he denies having any previous episodes of bloody diarrhea similar to this. She is a generally healthy individual who works full-time for [employer], with past medical history that includes hypertension, hyperlipidemia, anxiety, BPH, and intermittent back pain Discharge Summary-Simple/Stand Consultations General Surgery Discharge Physical Examination Allergies: Coded Allergies: No Known Drug Allergies (Unverified , 08/17/13) Vitals & I&Os Vital Sign - Last 12Hours Date Time Temp Pulse Resp B/P (MAP) Pulse Ox O2 Delivery O2 Flow Rate FiO2 01/27/17 08:00 98.6 96 18 139/73 95 Room Air 01/26/17 19:54 2.00 Hospital Course See final discharge diagnosis. Radiology Reviewed NAME: ANDRES [facility] REC#: [id number] PT STATUS: ADM IN : 1955 PHYSICIAN: VIANNEY BASSETT MD ADMIT DATE: 01/24/17/ICU Signed Date of Exam: 01/24/17 CHEST 1 VIEW, AP/PA ONLY INDICATION: Syncope. Frontal chest obtained at 3:04 p.m. FINDINGS: Heart is normal in size. There is a retrocardiac air-fluid level compatible with hiatal hernia. There is no focal infiltrate or pneumothorax or pleural fluid. IMPRESSION: Retrocardiac air-fluid level is present compatible with a prominent hiatal hernia. There is no acute infiltrate or pleural fluid. Dictated by: Dictated on workstation # [id number] Dict: 01/24/17 1520 Trans: 01/24/17 1705 Interpreted by: NORMA RODRIGUES MD Electronically signed by: NORMA RODRIGUES MD 01/24/17 2552 Discharge Instructions to patient/family Please see electronic discharge instructions given to patient. Discharge Medications Reviewed and agree with Discharge Medication list on patient's Discharge Instruction sheet Clinical Quality Measures DVT/VTE Risk/Contraindication: Risk Factor Score Per Nursin RFS Level Per Nursing on Admit: 1=Low/No VTE PPX HERLINDA NEIL DO Jan 27, 2017 10:21
[2017-01-27] MEDS ORDERED: HYDR-3812 PO (10:23)
--- NOTE | 2017-01-27 10:58 | Discharge Instructions ---
Discharge [facility] Discharge Medications New, Converted or Re-Newed RX: RX on Chart New Medications: Hydrocodone/Acetaminophen (Hydrocodon -Acetaminophen 5-325) 1 Each Tablet 1 TAB PO Q4H PRN for PAIN-MODERATE for 10 Days, #30 TAB 1 Refill Continued Medications: Acetaminophen (Acetaminophen) 325 Mg Tablet 325 MG PO BID, TAB Amitriptyline HCl (Amitriptyline HCl) 25 Mg Tablet 25-50 MG PO HS PRN for SLEEP TAKES 1-2 OF A (25 MG) TABLET Amlodipine Besylate (Amlodipine Besylate) 10 Mg Tablet 10 MG PO DAILY Aspirin (Aspirin EC) 81 Mg Tablet.dr 81 MG PO DAILY, TAB Atorvastatin Calcium (Atorvastatin Calcium) 80 Mg Tablet 80 MG PO DAILY Cholecalciferol (Vitamin D3) (Vitamin D) 2,000 Unit Capsule 2000 UNIT PO DAILY, CAP Dutasteride (Dutasteride) 0.5 Mg Capsule 0.5 MG PO DAILY Discontinued Medications: Ibuprofen (Ibuprofen) 200 Mg Tablet 600 MG PO BID, TAB TAKES 3 (200 MG) TABLETS Patient Instructions Goal/Follow Up Appt: Follow up with Dr. Breen 02/04/17 at 11:40 AM Return to The Hospital For: Reoccurance of bleeding, fainting, dizziness, pain that is not controlled by medications, or any other emergent concerns. For any non-emergent concerns, please contact the provider sales representative consultant. Activity & Diet Discharge Diet: Cardiac Diet Activity as Tolerated: Yes HERLINDA NEIL DO Jan 27, 2017 10:58
[2017-01-27 11:59] VITALS: BP 127/76
[2017-01-27 12:32] VITALS: BP 127/76
== END 2017-01-27 12:34 | disposition home or self-care (01) | DRG 378 ==
LOC: EDUNIT# 14:15 → ER 14:17 → ICU 15:50 → 4TH 01-26 13:42
PROVIDERS: ADMIT Family Medicine; ATTEND Internal Medicine
PROC: 0D568ZZ Destruction of Stomach, Via Natural or Artificial Opening Endoscopic (ICD-10-PCS; principal; 2017-01-24 18:48)
PROC: 0DJD8ZZ Inspection of Lower Intestinal Tract, Via Natural or Artificial Opening Endoscopic (ICD-10-PCS; 2017-01-26)
DX: K57.31 Diverticulosis of large intestine without perforation or abscess with bleeding (principal); D62 Acute posthemorrhagic anemia; K31.819 Angiodysplasia of stomach and duodenum without bleeding; K25.9 Gastric ulcer, unspecified as acute or chronic, without hemorrhage or perforation; K44.9 Diaphragmatic hernia without obstruction or gangrene; E78.5 Hyperlipidemia, unspecified; I10 Essential (primary) hypertension; N40.0 Benign prostatic hyperplasia without lower urinary tract symptoms; F17.290 Nicotine dependence, other tobacco product, uncomplicated
CPT/HCPCS: 36415; 71010; 80048; 80053; 80061; 83735; 83874; 84100; 84484; 85007; 85014; 85018; 85025; 85027; 85610; 85730; 86850; 86900; 86901; 86920; 87324; 87449; 93005; 93041; 93306; 94760; 96365; 96375

== ENCOUNTER 2017-03-08 14:51 | Outpatient (CLI) | payer OTHER ==
[~2017-03-08 14:51] MED LIST changes: +ACET325T49 PO; +AMIT25TA9 PO; +AMLO10TA2 PO; +ASPI-983 PO; +ATOR80TA76 PO; +CHOL2000 PO; +DUTA0.5C14 PO; +HYDR-3812 PO; +IBUP-2055 PO; +vit d
== END 2017-03-08 15:00 | disposition home or self-care (01) ==
LOC: SLEEP 14:51
PROVIDERS: ATTEND Internal Medicine Critical Care Medicine
DX: G47.10 Hypersomnia, unspecified (principal); G47.50 Parasomnia, unspecified; G47.33 Obstructive sleep apnea (adult) (pediatric)

== ENCOUNTER 2020-07-17 09:55 | Outpatient (CLI) | payer BC, OTHER ==
[~2020-07-17] VITALS: Ht 170.2 cm; Wt 78.1 kg
[~2020-07-17 09:55] MED LIST changes: +ACHD5005 PO; +AMLO-251 PO; -AMLO10TA2 PO; +ASPI-1238 PO; -ASPI-983 PO; -DUTA0.5C14 PO; +DUTA0.5C36 PO; -HYDR-3812 PO; -IBUP-2055 PO; +IBUP-2473 PO
[2020-07-17] MEDS ORDERED: CHOL200012 PO (10:25)
[2020-07-18] MEDS ORDERED: ALPR0.5T7 PO (07:59)
[2020-07-18] MEDS ORDERED: METR500T PO (14:25)
[2020-07-18] MEDS ORDERED: CIPR-225 PO (14:25)
[2020-07-18] MEDS ORDERED: AMLO-251 PO (14:25)
== END 2020-07-17 11:09 | disposition home or self-care (01) ==
LOC: PREOP 09:55
PROVIDERS: ATTEND Internal Medicine
DX: Z01.818 Encounter for other preprocedural examination (principal)

== ENCOUNTER 2020-07-17 16:22 | Inpatient (IN) | payer BC, OTHER ==
[~2020-07-17] VITALS: Ht 170 cm; Wt 78.4 kg
[~2020-07-17 16:22] MED LIST changes: +CHOL200012 PO
--- NOTE | 2020-07-17 16:40 | ED GI ---
General Chief Complaint: Abdominal/GI Problems Stated Complaint: GI BLEED Source of Information: Patient, EMS Exam Limitations: No Limitations History of Present Illness Date Seen by Provider: Jul 17, 2020 Time Seen by Provider: 16:25 Initial Comments To ER by private vehicle from home with reports of gastrointestinal bleeding. He has a history of extensive diverticulosis. He had a diverticular bleed in 2016 and was [address] Dr. Odell and had colonoscopy. He has had bleeding starting on Tuesday of this week that was dark-colored stools. He saw Dr. Guy and was scheduled for colonoscopy tomorrow. The bleeding seemed to taper off last night and then recurred today during bowel prep for colonoscopy such that he was passing large blood clots per rectum. He has some intermittent abdominal cramping. He did have a syncopal event at home. Upon EMS arrival blood pressure was in the 80s systolic. IV access was established and he was started on 1 L of crystalloids. Takes baby aspirin daily but no other anticoagulants. Timing/Duration: 1-2 Days Severity/Quality: Moderate Location: Generalized Abdomen Radiation: No Radiation Activities at Onset: None Associated Symptoms: Nausea/Vomiting (He did vomit once today which was without apparent blood) Allergies and Home Medications Allergies Coded Allergies: No Known Drug Allergies (Unverified , 08/17/13) Home Medications Amitriptyline HCl 25 Mg Tablet, 25-50 MG PO HS PRN for SLEEP, (Reported) TAKES 1-2 OF A (25 MG) TABLET Amlodipine Besylate 10 Mg Tablet, 10 MG PO DAILY, (Reported) Aspirin 81 Mg Tablet.dr, 81 MG PO DAILY, (Reported) Atorvastatin Calcium 80 Mg Tablet, 80 MG PO DAILY, (Reported) Cholecalciferol (Vitamin D3) 50 Mcg Capsule, 50 MCG PO DAILY, (Reported) Dutasteride 0.5 Mg Capsule, 0.5 MG PO DAILY, (Reported) Patient Home Medication List Home Medication List Reviewed: Yes Review of Systems Review of Systems Constitutional: see HPI; No chills, No fever; malaise, weakness EENTM: No Symptoms Reported Respiratory: No Symptoms Reported Cardiovascular: See HPI Gastrointestinal: See HPI, Rectal Bleeding Genitourinary: No Symptoms Reported Musculoskeletal: no symptoms reported Skin: no symptoms reported Psychiatric/Neurological: No Symptoms Reported Endocrine: No Symptoms Reported Hematologic/Lymphatic: No Symptoms Reported Past Sjqsgre-Ktmkrc-Uvmflb Hx Patient Social History Alcohol Beverage of Choice: Whiskey Type Used: Cigars 2nd Hand Smoke Exposure: No Recent Hopitalizations: No Immunizations Up To Date Tetanus Booster (TDap): Unknown PED Vaccines UTD: No Date of Pneumonia Vaccine: Dec 18, 2009 Date of Influenza Vaccine: Jan 17, 2020 Seasonal Allergies Seasonal Allergies: No Past Medical History Surgeries: Yes (inguinal hernia repair x3) Respiratory: No Cardiac: Yes High Cholesterol, Hypertension Neurological: No Genitourinary: Yes (enlarged prostate) Prostate Problems Gastrointestinal: Yes Diverticulosis, Hiatal Hernia Musculoskeletal: No Endocrine: No HEENT: No Cancer: No Psychosocial: Yes Sleep Difficulties Integumentary: No Blood Disorders: No Family Medical History No Pertinent Family Hx Physical Exam Vital Signs Vital Signs - First Documented 07/17/20 16:34 Temp 36.1 Pulse 90 Resp 18 B/P (MAP) 92/60 (71) Pulse Ox 95 Capillary Refill : Height/Weight/BMI Height: 5'7.00" Weight: 187lbs. 0.0oz. 84.850147zm; 26.96 BMI Method:Stated General Appearance: WD/WN, no apparent distress, other (Very pale, lethargic but converses appropriately. Blood pressure 91 systolic.) Neck: non-tender, full range of motion Respiratory: no respiratory distress, no accessory muscle use Cardiovascular: regular rate, rhythm, no murmur Gastrointestinal: normal bowel sounds, non tender, soft Extremities: normal range of motion, non-tender Neurologic/Psychiatric: alert, normal mood/affect, oriented x 3 Skin: normal color, warm/dry Progress/Results/Core Measures Results/Orders Lab Results Laboratory Tests Test 07/17/20 16:30 Range/Units White Blood Count 14.4 H 4.3-11.0 10^3/uL Red Blood Count 3.11 L 4.30-5.52 10^6/uL Hemoglobin 9.2 L 13.3-17.7 g/dL Hematocrit 28 L 40-54 % Mean Corpuscular Volume 90 80-99 fL Mean Corpuscular Hemoglobin 30 25-34 pg Mean Corpuscular Hemoglobin Concent 33 32-36 g/dL Red Cell Distribution Width 12.8 10.0-14.5 % Platelet Count 288 130-400 10^3/uL Mean Platelet Volume 9.7 9.0-12.2 fL Immature Granulocyte % (Auto) 1 % Neutrophils (%) (Auto) 72 42-75 % Lymphocytes (%) (Auto) 18 12-44 % Monocytes (%) (Auto) 8 0-12 % Eosinophils (%) (Auto) 1 0-10 % Basophils (%) (Auto) 1 0-10 % Neutrophils # (Auto) 10.3 H 1.8-7.8 10^3/uL Lymphocytes # (Auto) 2.6 1.0-4.0 10^3/uL Monocytes # (Auto) 1.1 H 0.0-1.0 10^3/uL Eosinophils # (Auto) 0.1 0.0-0.3 10^3/uL Basophils # (Auto) 0.1 0.0-0.1 10^3/uL Immature Granulocyte # (Auto) 0.1 0.0-0.1 10^3/uL Neutrophils % (Manual) 66 % Lymphocytes % (Manual) 23 % Monocytes % (Manual) 7 % Eosinophils % (Manual) 2 % Basophils % (Manual) 0 % Band Neutrophils 1 % Atypical Lymphocytes 1 % Poikilocytosis SLIGHT Prothrombin Time 17.0 H 12.2-14.7 SEC INR Comment 1.3 0.8-1.4 Sodium Level 137 135-145 MMOL/L Potassium Level 3.1 L 3.6-5.0 MMOL/L Chloride Level 106 98-107 MMOL/L Carbon Dioxide Level 16 L 21-32 MMOL/L Anion Gap 15 H 5-14 MMOL/L Blood Urea Nitrogen 15 7-18 MG/DL Creatinine 0.97 0.60-1.30 MG/DL Estimat Glomerular Filtration Rate > 60 BUN/Creatinine Ratio 15 Glucose Level 205 H 70-105 MG/DL Calcium Level 7.0 L 8.5-10.1 MG/DL Corrected Calcium 7.7 L 8.5-10.1 MG/DL Total Bilirubin 0.3 0.1-1.0 MG/DL Aspartate Amino Transf (AST/SGOT) 14 5-34 U/L Alanine Aminotransferase (ALT/SGPT) 16 0-55 U/L Alkaline Phosphatase 50 40-136 U/L Total Protein 5.1 L 6.4-8.2 GM/DL Albumin 3.1 L 3.2-4.5 GM/DL My Orders Orders - GUY BLANDON SURGICAL SALES REPRESENTATIVE Cbc With Automated Diff (07/17/20 16:35) Comprehensive Metabolic Panel (07/17/20 16:35) Protime With Inr (07/17/20 16:35) Red Cells Leukocytes Reduced (07/17/20 16:35) Ed Iv/Invasive Line Start (07/17/20 16:35) Type And Screen (07/17/20 16:35) Manual Differential (07/17/20 16:30) Ct Angio Abdomen/Pelv W (07/17/20 16:55) Vital Signs/I&O 07/17/20 16:34 Temp 36.1 Pulse 90 Resp 18 B/P (MAP) 92/60 (71) Pulse Ox 95 Diagnostic Imaging Diagonstic Imaging: CT Comments NAME: ANDRES [facility]CKINNEY [facility] REC#: [id number] PT STATUS: ADM IN : 1955 PHYSICIAN: GUY BLANDON APRN ADMIT DATE: 07/17/20/ICU Draft Date of Exam:07/17/20 CT ANGIO ABDOMEN/PELV W PROCEDURE: CT Angio Abdomen/Pelvis with. TECHNIQUE: Multiple contiguous axial images were obtained through the abdomen and pelvis after the uneventful bolus administration of intravenous contrast. Sagittal and coronal MIP reconstructions with then performed. All CT scans use one or more of the following dose optimizing techniques: automated exposure control, MA and/or KvP adjustment based on patient size and exam type or iterative reconstruction. INDICATION: Gastrointestinal bleeding, emesis and syncope There is moderate sliding-type hiatal hernia present. The abdominal aorta is of normal caliber, however, there is high-grade stenosis at the origin of the celiac trunk with poststenotic dilatation. Hepatic artery and tortuous splenic artery demonstrate mild atherosclerotic disease without evidence of stenosis or occlusion. Superior mesenteric artery is unremarkable in appearance as is the inferior mesenteric artery. There is mild low-density throughout the liver without evidence of focal hepatic or splenic lesion. No pancreatic or adrenal gland lesion is identified. There is excretion of contrast from both kidneys. Left kidney contains an approximately 2.5 cm cyst. There is fluid distention throughout the colon. This is most pronounced in the cecum. Numerous diverticula are seen throughout the distal colon with pericolonic inflammation at the level of sigmoid colon. Unopacified bladder is unremarkable in appearance. 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 There does appear to be normal opacification of celiac branches. There is evidence of probable active sigmoid diverticulitis without pericolonic fluid collection or significant pneumoperitoneum. Dictated on workstation # [id number] Dict: 07/17/[id number] Trans: 07/17/20 1807 LILIANA [id number] Interpreted by: SOCO CHRISTENSEN MD Electronically signed by: Departure Communication (Admissions) Time/Spoke to Admitting Phy: 17:49 [id number]-[id number] spoke with Dr. Marquez who accepts the patient for admission I spoke with Dr. Payne. He agrees to consult. Patient is hemodynamically stable. Blood pressure up to 117 and 120s on 3 consecutive readings after administration of 1 L of crystalloids here in the ER. He is crossmatched for 3 units should they become needed. Pain is minimal. There does seem to be some stranding surrounding an area of diverticulosis on CT. I have ordered Zosyn 4.5 g IV every 6 hours. I spoke with the foreign student adviser teacher from [facility] and updated on plan of care. Impression Primary Impression: Diverticular hemorrhage Disposition: ADMITTED INPATIENT Condition: Stable Admissions Decision to Admit Reason: Admit from ER (General) Decision to Admit/Date: Jul 17, 2020 Time/Decision to Admit Time: 16:40 Departure-Patient Inst. Referrals: BENY ALY MD (PCP/Family) Primary Care Physician GUY BLANDON APRN Jul 17, 2020 16:40
[2020-07-17 16:41] LABS: BASOPHILS # (AUTO) 0.1 10^3/uL (0.0-0.1); BASOPHILS % (AUTO) 1 % (0-10); EOSINOPHILS # (AUTO) 0.1 10^3/uL (0.0-0.3); EOSINOPHILS % (AUTO) 1 % (0-10); HEMATOCRIT 28 % (40-54); HEMOGLOBIN 9.2 g/dL (13.3-17.7); LYMPHOCYTES # (AUTO) 2.6 10^3/uL (1.0-4.0); LYMPHOCYTES % (AUTO) 18 % (12-44); MEAN CORPUSCULAR HEMOGLOBIN 30 pg (25-34); MEAN CORPUSCULAR HGB CONC 33 g/dL (32-36); MEAN CORPUSCULAR VOLUME 90 fL (80-99); MEAN PLATELET VOLUME 9.7 fL (9.0-12.2); MONOCYTES # (AUTO) 1.1 10^3/uL (0.0-1.0); MONOCYTES % (AUTO) 8 % (0-12); NEUTROPHILS # (AUTO) 10.3 10^3/uL (1.8-7.8); NEUTROPHILS % (AUTO) 72 % (42-75); PLATELET COUNT 288 10^3/uL (130-400); WHITE BLOOD COUNT 14.4 10^3/uL (4.3-11.0)
[2020-07-17 16:57] LABS: INR 1.3 (0.8-1.4)
[2020-07-17 16:58] LABS: ALBUMIN 3.1 GM/DL (3.2-4.5); CHLORIDE 106 MMOL/L (98-107); POTASSIUM 3.1 MMOL/L (3.6-5.0); SODIUM 137 MMOL/L (135-145)
[2020-07-17 16:59] LABS: ATYPICAL LYMPHOCYTES 1 %; BAND NEUTROPHILS 1 %; BASOPHILS % (MANUAL) 0 %; EOSINOPHILS % (MANUAL) 2 %; LYMPHOCYTES % (MANUAL) 23 %; MONOCYTES % (MANUAL) 7 %; NEUTROPHILS % (MANUAL) 66 %; POIKILOCYTOSIS SLIGHT
[2020-07-17 17:01] LABS: GLUCOSE 205 MG/DL (70-105); TOTAL PROTEIN 5.1 GM/DL (6.4-8.2)
[2020-07-17 17:02] LABS: CARBON DIOXIDE 16 MMOL/L (21-32)
[2020-07-17 17:03] LABS: BILIRUBIN,TOTAL 0.3 MG/DL (0.1-1.0)
[2020-07-17 17:04] LABS: ALKALINE PHOSPHATASE 50 U/L (40-136); CREATININE SERUM 0.97 MG/DL (0.60-1.30); GFR ESTIMATED > 60
[2020-07-17 17:05] LABS: BUN/CREATININE RATIO 15
[2020-07-17 17:07] LABS: ALANINE AMINOTRANSFERASE 16 U/L (0-55)
[2020-07-17] MEDS ORDERED: NS 100 ML (IVPB) BAG IV ONE (17:30)
[2020-07-17] MEDS ORDERED: CATHETER FLUSH 10 ML SYR IV PRN (17:30)
[2020-07-17] MEDS ORDERED: IOHEXOL 350 MG/ML 100 ML (OMNIPAQUE 350) VIAL IV ONE (17:30)
[2020-07-17] MEDS ORDERED: HOLD METFORMIN - RECEIVED CONTRAST 20 ML VIAL IV SCH (17:30)
[2020-07-17] MEDS ORDERED: ONDANSETRON 4 MG/2 ML (SDV) Z0FRAN ONE (17:48)
[2020-07-17 18:00] VITALS: BP 99/75
--- NOTE | 2020-07-17 18:08 | Diagnostic Imaging Report ---
PROCEDURE: CT Angio Abdomen/Pelvis with. TECHNIQUE: Multiple contiguous axial images were obtained through the abdomen and pelvis after the uneventful bolus administration of intravenous contrast. Sagittal and coronal MIP reconstructions with then performed. All CT scans use one or more of the following dose optimizing techniques: automated exposure control, MA and/or KvP adjustment based on patient size and exam type or iterative reconstruction. INDICATION: Gastrointestinal bleeding, emesis and syncope There is moderate sliding-type hiatal hernia present. The abdominal aorta is of normal caliber, however, there is high-grade stenosis at the origin of the celiac trunk with poststenotic dilatation. Hepatic artery and tortuous splenic artery demonstrate mild atherosclerotic disease without evidence of stenosis or occlusion. Superior mesenteric artery is unremarkable in appearance as is the inferior mesenteric artery. There is mild low-density throughout the liver without evidence of focal hepatic or splenic lesion. No pancreatic or adrenal gland lesion is identified. There is excretion of contrast from both kidneys. Left kidney contains an approximately 2.5 cm cyst. There is fluid distention throughout the colon. This is most pronounced in the cecum. Numerous diverticula are seen throughout the distal colon with pericolonic inflammation at the level of sigmoid colon. Unopacified bladder is unremarkable in appearance. 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 There does appear to be normal opacification of celiac branches. There is evidence of probable active sigmoid diverticulitis without pericolonic fluid collection or significant pneumoperitoneum. Dictated by: Dictated on workstation # [id number]
[2020-07-17] MEDS: NS IV 1000 ML 1,000 ML IV SCH (18:32)
[2020-07-17] MEDS: POTASSIUM CL 10 MEQ/50 ML IVPB (PRE-MIX) IV SCH ×2 (18:32→20:51)
[2020-07-17 19:00] VITALS: BP 98/63
[2020-07-17] MEDS: NS IV 500 ML 500 ML IV SCH (19:00)
[2020-07-17] MEDS ORDERED: ONDANSETRON 4 MG/2 ML (SDV) Z0FRAN IVP PRN (19:00)
[2020-07-17] MEDS ORDERED: PIPERACILLIN/TAZO 4.5 GM/NS 100 ML IV NR ×2 (19:00)
[2020-07-17 21:00] VITALS: BP 105/61
[2020-07-17 22:00] VITALS: BP 110/95
[2020-07-17 23:00] VITALS: BP 110/65
[2020-07-18] VITALS (24 sets, daily range): BP systolic 98–154; BP diastolic 60–95
[2020-07-18 00:10] LABS: HEMOGLOBIN 9.3 g/dL (13.3-17.7)
[2020-07-18] MEDS: NS IV 1000 ML 1,000 ML IV SCH ×2 (02:11→10:45)
[2020-07-18] MEDS: PIPERACILLIN/TAZO 4.5 GM/NS 100 ML IV SCH ×6 (02:11→17:54)
--- NOTE | 2020-07-18 03:58 | Pulmonary Consultation ---
History of Present Illness History of Present Illness Date Seen by Provider: Jul 18, 2020 Time Seen by Provider: 03:53 Date of Admission Allergies and Home Medications Allergies Coded Allergies: No Known Drug Allergies (Unverified , 08/17/13) Home Medications Amitriptyline HCl 25 Mg Tablet, 25-50 MG PO HS PRN for SLEEP, (Reported) TAKES 1-2 OF A (25 MG) TABLET Amlodipine Besylate 10 Mg Tablet, 10 MG PO DAILY, (Reported) Aspirin 81 Mg Tablet.dr, 81 MG PO DAILY, (Reported) Atorvastatin Calcium 80 Mg Tablet, 80 MG PO DAILY, (Reported) Cholecalciferol (Vitamin D3) 50 Mcg Capsule, 50 MCG PO DAILY, (Reported) Dutasteride 0.5 Mg Capsule, 0.5 MG PO DAILY, (Reported) Past Zgutbde-Djzffq-Sqmbph Hx Patient Social History Alcohol Use: Occasionally Uses Number of Drinks Today: GG Alcohol Beverage of Choice: Whiskey Smoking Status: Never a Smoker Type Used: Cigars 2nd Hand Smoke Exposure: No Recent Infectious Disease Expo: No Recent Hopitalizations: No Immunizations Up To Date Tetanus Booster (TDap): Unknown PED Vaccines UTD: No Date of Pneumonia Vaccine: Dec 18, 2009 Date of Influenza Vaccine: Jan 17, 2020 Seasonal Allergies Seasonal Allergies: No Past Medical History Surgeries: Yes (inguinal hernia repair x2) Respiratory: No Sleep Apnea Currently Using CPAP: Yes Cardiac: Yes High Cholesterol, Hypertension Neurological: No Genitourinary: Yes (enlarged prostate) Prostate Problems Gastrointestinal: Yes Gastrointestinal Bleed, Diverticulosis, Hiatal Hernia Musculoskeletal: No Endocrine: No HEENT: No Cancer: No Psychosocial: Yes Sleep Difficulties Integumentary: No Blood Disorders: No Family Medical History No Pertinent Family Hx Review of Systems Time Seen by Provider: 03:53 Sepsis Event Evaluation Height, Weight, BMI Height: 5'7.00" Weight: 187lbs. 0.0oz. 84.459548aw; 26.98 BMI Method:Stated Exam Exam Vital Signs Date Time Temp Pulse Resp B/P (MAP) Pulse Ox O2 Delivery O2 Flow Rate FiO2 07/18/20 00:00 85 112/68 (83) 96 Room Air 07/17/20 23:59 98 Room Air 07/17/20 23:00 84 110/65 (80) 95 Room Air 07/17/20 22:00 92 110/95 (100) 94 Room Air 07/17/20 21:00 91 105/61 (76) 95 Room Air 07/17/20 20:00 99 Room Air 07/17/20 20:00 91 96 Room Air 07/17/20 19:00 96 98/63 (75) 96 Room Air 07/17/20 19:00 90 07/17/20 18:52 99 Room Air 07/17/20 18:00 96 99/75 (83) 99 07/17/20 17:58 94 07/17/20 17:50 36.1 90 18 117/68 (71) 96 Room Air 07/17/20 16:34 36.1 90 18 92/60 (71) 95 I & O 07/18/20 07:00 Intake Total 275 ml Output Total 965 ml Balance -690 ml Height & Weight Height: 5'7.00" Weight: 187lbs. 0.0oz. 84.240137zh; 26.98 BMI Method:Stated Capillary Refill: Less Than 3 Seconds Gastrointestinal: normal bowel sounds, non tender, soft Results Lab Laboratory Tests 07/17/20 16:30 07/17/20 23:40 Assessment/Plan Assessment/Plan Possible Diverticular bleed - pt had [facility] prior admit -Surgery consulted -Labs pending -Holding anticoagulation Leukocytosis -Continue Zosyn -NS at 125 currently. Anion gapped metabolic acidosis -Check LA Anemia -Monitor -Has not required transfusions thus far Hx of diverticulosis and hx of bleed in 2017 MALATHI MONROE DO Jul 18, 2020 03:58
[2020-07-18 04:02] LABS: BASOPHILS # (AUTO) 0.1 10^3/uL (0.0-0.1); BASOPHILS % (AUTO) 1 % (0-10); EOSINOPHILS # (AUTO) 0.1 10^3/uL (0.0-0.3); EOSINOPHILS % (AUTO) 1 % (0-10); HEMATOCRIT 25 % (40-54); HEMOGLOBIN 8.1 g/dL (13.3-17.7); LYMPHOCYTES # (AUTO) 1.5 10^3/uL (1.0-4.0); LYMPHOCYTES % (AUTO) 12 % (12-44); MEAN CORPUSCULAR HEMOGLOBIN 29 pg (25-34); MEAN CORPUSCULAR HGB CONC 32 g/dL (32-36); MEAN CORPUSCULAR VOLUME 89 fL (80-99); MEAN PLATELET VOLUME 9.6 fL (9.0-12.2); MONOCYTES # (AUTO) 0.9 10^3/uL (0.0-1.0); MONOCYTES % (AUTO) 7 % (0-12); NEUTROPHILS # (AUTO) 10.1 10^3/uL (1.8-7.8); NEUTROPHILS % (AUTO) 79 % (42-75); PLATELET COUNT 228 10^3/uL (130-400); WHITE BLOOD COUNT 12.8 10^3/uL (4.3-11.0)
[2020-07-18 04:12] LABS: CHLORIDE 106 MMOL/L (98-107); POTASSIUM 3.7 MMOL/L (3.6-5.0); SODIUM 140 MMOL/L (135-145)
[2020-07-18 04:14] LABS: CALCIUM 7.2 MG/DL (8.5-10.1); GLUCOSE 91 MG/DL (70-105)
[2020-07-18 04:16] LABS: CARBON DIOXIDE 20 MMOL/L (21-32)
[2020-07-18 04:18] LABS: CREATININE SERUM 0.83 MG/DL (0.60-1.30); GFR ESTIMATED > 60
[2020-07-18 04:19] LABS: BUN/CREATININE RATIO 13
[2020-07-18] MEDS ORDERED: ALPR0.5T7 PO (07:59)
[2020-07-18 10:01] LABS: HEMOGLOBIN 8.1 g/dL (13.3-17.7)
[2020-07-18] MEDS: NS IV 500 ML 500 ML IV SCH (11:05)
[2020-07-18] MEDS ORDERED: IRON SUCROSE 200 MG/10 ML (VENOFER) VIAL IV NR (13:00)
--- NOTE | 2020-07-18 13:34 | Consultation - Surgery ---
History of Present Illness History of Present Illness Patient Consulted On(wilma/time) 07/18/20 13:27 Time Seen by Provider: 09:51 History of Present Illness Surgery asked to consult regarding GI bleed. HPI per ED: To ER by private vehicle from home with reports of gastrointestinal bleeding. He has a history of extensive diverticulosis. He had a diverticular bleed in 2016 and was [address] Dr[address] Odell and had colonoscopy. He has had bleeding starting on Tuesday of this week that was dark-colored stools. He saw Dr. Guy and was scheduled for colonoscopy tomorrow. The bleeding seemed to taper off last night and then recurred today during bowel prep for colonoscopy such that he was passing large blood clots per rectum. He has some intermittent abdominal cramping. He did have a syncopal event at home. Upon EMS arrival blood pressure was in the 80s systolic. IV access was established and he was started on 1 L of crystalloids. Takes baby aspirin daily but no other anticoagulants. Timing/Duration: 1-2 Days Severity/Quality: Moderate Location: Generalized Abdomen Radiation: No Radiation Activities at Onset: None Associated Symptoms: Nausea/Vomiting (He did vomit once today which was without apparent blood) When I spoke to pt he states that he noticed bleeding on Tuesday; spoke with Dr. Guy and was getting colon prep for possible colonoscopy today. At home he had at least 3 syncopal episodes. He states this happened one other time in 2017; that time he actually passed out at work and he had been taking a lot of Ibuprofen "for dental pain". He had EGD and colonoscopy in 2017; which he states only demonstrated Diverticula, no polyps and nothing in the stomach. No active bleeding was found during colonoscopy at that time. Allergies and Home Medications Allergies Coded Allergies: No Known Drug Allergies (Unverified , 08/17/13) Home Medications Amitriptyline HCl 25 Mg Tablet, 25-50 MG PO HS PRN for SLEEP, (Reported) TAKES 1-2 OF A (25 MG) TABLET Last Action: Reviewed Amlodipine Besylate 10 Mg Tablet, 10 MG PO DAILY, (Reported) Last Action: Reviewed Atorvastatin Calcium 80 Mg Tablet, 80 MG PO DAILY, (Reported) Last Action: Reviewed Cholecalciferol (Vitamin D3) 50 Mcg Capsule, 50 MCG PO DAILY, (Reported) Last Action: Reviewed Dutasteride 0.5 Mg Capsule, 0.5 MG PO DAILY, (Reported) Last Action: Reviewed Patient Home Medication List Home Medication List Reviewed: Yes Past Dqajnse-Wwvtwk-Aqeuow Hx Patient Social History Number of Drinks Today: GG Smoking Status: Never a Smoker Type Used: Cigars 2nd Hand Smoke Exposure: No Recent Hopitalizations: No Immunizations Up To Date Tetanus Booster (TDap): Unknown PED Vaccines UTD: No Date of Pneumonia Vaccine: Dec 18, 2009 Date of Influenza Vaccine: Jan 17, 2020 Seasonal Allergies Seasonal Allergies: No Surgeries History of Surgeries: Yes (inguinal hernia repair x2, colonoscopy/EGD) Respiratory History of Respiratory Disorde: Yes Respiratory Disorders: Sleep Apnea Cardiovascular History of Cardiac Disorders: Yes Cardiac Disorders: High Cholesterol, Hypertension Neurological History of Neurological Disord: No Genitourinary History of Genitourinary Disor: Yes (enlarged prostate) Genitourinary Disorders: Prostate Problems Gastrointestinal History of Gastrointestinal Di: Yes Gastrointestinal Disorders: Gastrointestinal Bleed, Diverticulosis, Hiatal Hernia Musculoskeletal History of Musculoskeletal Dis: No Endocrine History of Endocrine Disorders: No HEENT History of HEENT Disorders: No Cancer History of Cancer: No Psychosocial History of Psychiatric Problem: Yes Behavioral Health Disorders: Sleep Difficulties Integumentary History of Skin or Integumenta: No Blood Transfusions History of Blood Disorders: No Family Medical History Significant Family History: Cancer (denies in any of his family), Diabetes (denies in his family), GI Disease (Ulcerative Colitis) Review of Systems-General Constitutional: dizziness; No fever; malaise, weakness EENTM: blurred vision, double vision; No mouth pain, No mouth swelling, No epistaxis Respiratory: No cough, No dyspnea on exertion, No hemoptysis; orthopnea Cardiovascular: No chest pain, No palpitations; syncope Gastrointestinal: No abdominal pain, No dysphagia, No hematemesis; other (hematochezia) Genitourinary: No dysuria, No frequency, No hematuria Musculoskeletal: No joint pain, No joint swelling, No muscle stiffness Skin: No change in color, No change in hair/nails Psychiatric/Neurological: Denies Anxiety, Denies Depressed, Denies Seizure, Denies Tremors Other Pt denies any hx of abnormal bleeding or bruising (from cuts or brushing teeth, etc) Physical Exam-General Problems Physical Exam Vital Signs Vital Signs - First Documented 07/17/20 07/17/20 16:34 17:50 Temp 36.1 Pulse 90 Resp 18 B/P (MAP) 92/60 (71) Pulse Ox 95 O2 Delivery Room Air Capillary Refill : Less Than 3 Seconds General Appearance: WD/WN, no apparent distress Eyes: Bilateral Eye PERRL, Bilateral Eye EOMI HEENT: pharynx normal; No scleral icterus (R), No scleral icterus (L), No pale conjunctivae (R), No pale conjunctivae (L) Neck: full range of motion, supple, normal inspection Respiratory: chest non-tender, lungs clear, normal breath sounds, no respiratory distress, no accessory muscle use Cardiovascular: regular rate, rhythm, no murmur Gastrointestinal: non tender, soft, no organomegaly, no pulsatile mass Rectal: deferred Back: no CVA tenderness, no vertebral tenderness Extremities: no pedal edema, no calf tenderness, normal capillary refill Neurologic/Psychiatric: lead consultant II-XII nml as tested, no motor/sensory deficits, alert, normal mood/affect, oriented x 3 Skin: warm/dry, pallor (very slight) Lymphatic: no adenopathy (neck, axilla or groin) Data Review Labs Laboratory Tests 07/17/20 16:30: White Blood Count 14.4H, Red Blood Count 3.11L, Hemoglobin 9.2L, Hematocrit 28L, Mean Corpuscular Volume 90, Mean Corpuscular Hemoglobin 30, Mean Corpuscular Hemoglobin Concent 33, Red Cell Distribution Width 12.8, Platelet Count 288, Mean Platelet Volume 9.7, Immature Granulocyte % (Auto) 1, Neutrophils (%) (Auto) 72, Lymphocytes (%) (Auto) 18, Monocytes (%) (Auto) 8, Eosinophils (%) (Auto) 1, Basophils (%) (Auto) 1, Neutrophils # (Auto) 10.3H, Lymphocytes # (Auto) 2.6, Monocytes # (Auto) 1.1H, Eosinophils # (Auto) 0.1, Basophils # (Auto) 0.1, Immature Granulocyte # (Auto) 0.1, Neutrophils % (Manual) 66, Lymphocytes % (Manual) 23, Monocytes % (Manual) 7, Eosinophils % (Manual) 2, Basophils % (Manual) 0, Band Neutrophils 1, Atypical Lymphocytes 1, Poikilocytosis SLIGHT, Prothrombin Time 17.0H, INR Comment 1.3, Sodium Level 1 37, Potassium Level 3.1L, Chloride Level 106, Carbon Dioxide Level 16L, Anion Gap 15H, Blood Urea Nitrogen 15, Creatinine 0.97, Estimat Glomerular Filtration Rate > 60, BUN/Creatinine Ratio 15, Glucose Level 205H, Calcium Level 7.0L, Corrected Calcium 7.7L, Total Bilirubin 0.3, Aspartate Amino Transf (AST/SGOT) 14, Alanine Aminotransferase (ALT/SGPT) 16, Alkaline Phosphatase 50, Total Protein 5.1L, Albumin 3.1L 07/17/20 23:40: Hemoglobin 9.3L, Hematocrit 29L 07/18/20 03:50: White Blood Count 12.8H, Red Blood Count 2.83L, Hemoglobin 8.1L, Hematocrit 25L, Mean Corpuscular Volume 89, Mean Corpuscular Hemoglobin 29, Mean Corpuscular Hemoglobin Concent 32, Red Cell Distribution Width 12.7, Platelet Count 228, Mean Platelet Volume 9.6, Immature Granulocyte % (Auto) 1, Neutrophils (%) (Auto) 79H, Lymphocytes (%) (Auto) 12, Monocytes (%) (Auto) 7, Eosinophils (%) (Auto) 1, Basophils (%) (Auto) 1, Neutrophils # (Auto) 10.1H, Lymphocytes # (Auto) 1.5, Monocytes # (Auto) 0.9, Eosinophils # (Auto) 0.1, Basophils # (Auto) 0.1, Immature Granulocyte # (Auto) 0.1, Sodium Level 140, Potassium Level 3.7, Chloride Level 106, Carbon Dioxide Level 20L, Anion Gap 14, Blood Urea Nitrogen 11, Creatinine 0.83, Estimat Glomerular Filtration Rate > 60, BUN/Creatinine Ratio 13, Glucose Level 91, Calcium Level 7.2L 07/18/20 04:10: Lactic Acid Level 1.81 07/18/20 09:56: Hemoglobin 8.1L, Hematocrit 25L Radiology Date of Exam:07/17/20 CT ANGIO ABDOMEN/PELV W PROCEDURE: CT Angio Abdomen/Pelvis with. TECHNIQUE: Multiple contiguous axial images were obtained through the abdomen and pelvis after the uneventful bolus administration of intravenous contrast. Sagittal and coronal MIP reconstructions with then performed. All CT scans use one or more of the following dose optimizing techniques: automated exposure control, MA and/or KvP adjustment based on patient size and exam type or iterative reconstruction. INDICATION: Gastrointestinal bleeding, emesis and syncope There is moderate sliding-type hiatal hernia present. The abdominal aorta is of normal caliber, however, there is high-grade stenosis at the origin of the celiac trunk with poststenotic dilatation. Hepatic artery and tortuous splenic artery demonstrate mild atherosclerotic disease without evidence of stenosis or occlusion. Superior mesenteric artery is unremarkable in appearance as is the inferior mesenteric artery. There is mild low-density throughout the liver without evidence of focal hepatic or splenic lesion. No pancreatic or adrenal gland lesion is identified. There is excretion of contrast from both kidneys. Left kidney contains an approximately 2.5 cm cyst. There is fluid distention throughout the colon. This is most pronounced in the cecum. Numerous diverticula are seen throughout the distal colon with pericolonic inflammation at the level of sigmoid colon. Unopacified bladder is unremarkable in appearance. 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 There does appear to be normal opacification of celiac branches. There is evidence of probable active sigmoid diverticulitis without pericolonic fluid collection or significant pneumoperitoneum. Dictated by: Dictated on workstation # [id number] Dict: 07/17/20 175 Trans: 07/17/201933 LILIANA [id number] Interpreted by: SOCO CHRISTENSEN MD Electronically signed by: SOCO CHRISTENSEN MD 07/17/201933 Assessment/Plan Assessment/Plan Assessment/Plan GI bleed Anemia secondary to above Diverticulitis I basically talked to the pt and his from 9:51 until 10:58; discussing Diverticula, diverticular bleeding and diverticulitis. We went over all options; colonoscopy, Tagged bleeding scan, Subtotal colectomy, partial colectomy, iron pills and iron infusion. We even talked about timing of iron infusion and what to do if this occurs again. In addition, I mila some pictures to help them understand diverticula anatomy and how the bleeding can start. This included answering all their questions. I think the best course of action is to send pt home with iron pills, plans to get CBC tomorrow and plus or minus ABX for the Diverticulitis. I would definitely not do a colonoscopy now because of the active diverticulitis. I think a subtotal colectomy is a little aggressive and a partial colectomy could easily miss the source of bleeding. They were very happy with all of the explanation and can follow up with me if they would like; but at this point it is probably not necessary. MINDY EDMOND DO Jul 18, 2020 13:33
[2020-07-18] MEDS ORDERED: IRON DEXTRAN INJECTION 25 MG in NS (IVPB) 5.75 ML IV NR (14:00)
[2020-07-18] MEDS ORDERED: RT-ALBUTEROL SULF 2.5 MG/3 ML PRE-MIX VIAL IH PRN (14:00)
[2020-07-18] MEDS ORDERED: diphenhydrAMINE 50 MG/ML INJ (BENADRYL) IV PRN (14:00)
[2020-07-18] MEDS ORDERED: EPINEPHrine INJECTION 1 MG/ML AMP IM PRN (14:00)
[2020-07-18] MEDS ORDERED: HYDROCORTISONE 100 MG/2 ML (Solu-CORTEF) VIAL IV PRN (14:00)
[2020-07-18] MEDS ORDERED: IRON DEXTRAN INJECTION 1,000 MG in NS (IVPB) 250 ML IV ONE (14:15)
--- NOTE | 2020-07-18 14:22 | Short Stay Summary ---
HPI Attending Physician Sugar Marquez MD PCP Paulo Breen MD Consult Date of Admission Jul 17, 2020 at 17:12 Home Medications Home Medications Reviewed patient Home Medication Reconciliation performed by pharmacy medication reconciliations senior games technician and/or nursing. Patients Allergies have been reviewed. Allergies Coded Allergies: No Known Drug Allergies (Unverified , 08/17/13) RAJ-Zfsnzs-Hgpbiq Hx Patient Social History Smoking Status: Never a Smoker 2nd Hand Smoke Exposure: No Recent Hopitalizations: No Immunizations Up To Date Tetanus Booster (TDap): Unknown Date of Pneumonia Vaccine: Dec 18, 2009 Date of Influenza Vaccine: Jan 17, 2020 Past Medical History 1 hypertension 2 hyperlipidemia 3 anxiety 4 chronic low back pain 5 BPH Family Medical History Significant Family History: Cancer (denies in any of his family), Diabetes (denies in his family), GI Disease (Ulcerative Colitis) Reviewed Test Results Reviewed Test Results Radiology Date of Exam:07/17/20 CT ANGIO ABDOMEN/PELV W PROCEDURE: CT Angio Abdomen/Pelvis with. TECHNIQUE: Multiple contiguous axial images were obtained through the abdomen and pelvis after the uneventful bolus administration of intravenous contrast. Sagittal and coronal MIP reconstructions with then performed. All CT scans use one or more of the following dose optimizing techniques: automated exposure control, MA and/or KvP adjustment based on patient size and exam type or iterative reconstruction. INDICATION: Gastrointestinal bleeding, emesis and syncope There is moderate sliding-type hiatal hernia present. The abdominal aorta is of normal caliber, however, there is high-grade stenosis at the origin of the celiac trunk with poststenotic dilatation. Hepatic artery and tortuous splenic artery demonstrate mild atherosclerotic disease without evidence of stenosis or occlusion. Superior mesenteric artery is unremarkable in appearance as is the inferior mesenteric artery. There is mild low-density throughout the liver without evidence of focal hepatic or splenic lesion. No pancreatic or adrenal gland lesion is identified. There is excretion of contrast from both kidneys. Left kidney contains an approximately 2.5 cm cyst. There is fluid distention throughout the colon. This is most pronounced in the cecum. Numerous diverticula are seen throughout the distal colon with pericolonic inflammation at the level of sigmoid colon. Unopacified bladder is unremarkable in appearance. 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 There does appear to be normal opacification of celiac branches. There is evidence of probable active sigmoid diverticulitis without pericolonic fluid collection or significant pneumoperitoneum. Dictated by: Dictated on workstation # [id number] Dict: 07/17/20 1756 Trans: 07/17/201933 LILIANA [id number] Interpreted by: SOCO CHRISTENSEN MD Electronically signed by: SOCO CHRISTENSEN MD 07/17/201933 Physical Exam-([facility]) Physical Exam Vital Signs VS - Last 72 Hours, by Label 07/17/20 07/17/20 07/17/20 07/17/20 16:34 17:50 17:58 18:00 Temp 36.1 36.1 Pulse 90 90 94 96 Resp 18 18 B/P (MAP) 92/60 (71) 117/68 (71) 99/75 (83) Pulse Ox 95 96 99 O2 Delivery Room Air 07/17/20 07/17/20 07/17/20 07/17/20 18:52 19:00 19:00 20:00 Pulse 90 96 91 B/P (MAP) 98/63 (75) Pulse Ox 99 96 96 O2 Delivery Room Air Room Air Room Air 07/17/20 07/17/20 07/17/20 07/17/20 20:00 21:00 22:00 23:00 Pulse 91 92 84 B/P (MAP) 105/61 (76) 110/95 (100) 110/65 (80) Pulse Ox 99 95 94 95 O2 Delivery Room Air Room Air Room Air Room Air 07/17/20 07/18/20 07/18/20 07/18/20 23:59 00:00 01:00 02:00 Pulse 85 83 87 B/P (MAP) 112/68 (83) 104/70 (81) 102/67 (79) Pulse Ox 98 96 93 93 O2 Delivery Room Air Room Air Room Air Room Air 07/18/20 07/18/20 07/18/20 07/18/20 03:00 04:00 04:00 05:00 Pulse 79 122 72 B/P (MAP) 106/71 (83) 117/74 (88) 108/66 (80) Pulse Ox 93 97 96 93 O2 Delivery Room Air Room Air Room Air Room Air 07/18/20 07/18/20 07/18/20 07/18/20 06:00 07:00 07:00 07:47 Temp 36.7 Pulse 67 76 80 B/P (MAP) 99/62 (74) 118/73 (88) Pulse Ox 93 96 O2 Delivery Room Air Room Air 07/18/20 07/18/20 07/18/20 07/18/20 08:00 08:00 09:00 10:00 Pulse 72 82 75 Resp B/P (MAP) 104/64 (77) 113/67 (82) 110/68 (82) Pulse Ox 96 97 96 96 O2 Delivery Room Air Room Air Room Air Room Air 07/18/20 07/18/20 07/18/20 07/18/20 11:00 12:00 12:00 12:25 Temp 36.5 Pulse 82 73 B/P (MAP) 125/76 (92) 120/72 (88) Pulse Ox 95 97 96 O2 Delivery Room Air Room Air Room Air 07/18/20 07/18/20 07/18/20 12:37 13:00 14:00 Pulse 76 92 88 B/P (MAP) 108/63 (78) 109/69 (82) Pulse Ox 96 97 O2 Delivery Room Air Room Air Capillary Refill : Less Than 3 Seconds SUGAR MARQUEZ MD Jul 18, 2020 14:22
[2020-07-18] MEDS ORDERED: CIPR-225 PO (14:25)
[2020-07-18] MEDS ORDERED: AMLO-251 PO (14:25)
[2020-07-18] MEDS ORDERED: METR500T PO (14:25)
--- NOTE | 2020-07-18 14:26 | Discharge Summary ---
Discharge [facility] Reconcile Patient Problems Problems Reviewed?: Yes Discharge Medications New, Converted or Re-Newed RX: Transmitted to Pharmacy New Medications: Ciprofloxacin HCl (Cipro) 500 Mg Tablet 500 MG PO BID, #14 TAB Metronidazole (Flagyl) 500 Mg Tablet 500 MG PO BID, #14 TAB Changed Medications: Amlodipine Besylate (Amlodipine Besylate) 10 Mg Tablet 10 MG PO DAILY, #30 TAB (Medication details modified) Hold until seen by PCP Continued Medications: Alprazolam (Alprazolam) 0.5 Mg Tablet 0.5 MG PO for 7 Days, TAB Amitriptyline HCl (Amitriptyline HCl) 25 Mg Tablet 25-50 MG PO HS PRN for SLEEP TAKES 1-2 OF A (25 MG) TABLET Atorvastatin Calcium (Atorvastatin Calcium) 80 Mg Tablet 80 MG PO DAILY Cholecalciferol (Vitamin D3) (D3-2000) 50 Mcg Capsule 50 MCG PO DAILY, CAP Dutasteride (Dutasteride) 0.5 Mg Capsule 0.5 MG PO DAILY Patient Instructions Goal/Follow Up Appt: See PCP next week Activity & Diet Discharge Diet: Soft Diet Activity as Tolerated: Yes SUGAR BANGURA MD Jul 18, 2020 14:26
[2020-07-18 16:30] LABS: HEMOGLOBIN 7.1 g/dL (13.3-17.7)
[2020-07-18 22:16] LABS: HEMOGLOBIN 7.3 g/dL (13.3-17.7)
[2020-07-19] VITALS (12 sets, daily range): BP systolic 104–140; BP diastolic 63–90
[2020-07-19] MEDS: PIPERACILLIN/TAZO 4.5 GM/NS 100 ML IV SCH ×4 (01:40→08:57)
[2020-07-19] MEDS: NS IV 1000 ML 1,000 ML IV SCH (01:40)
[2020-07-19] MEDS: NS IV 500 ML 500 ML IV SCH (05:04)
== END 2020-07-19 10:20 | disposition home or self-care (01) | DRG 378 ==
LOC: EDUNIT# 16:22 → ER 16:23 → ICU 17:12
PROVIDERS: ADMIT Family Medicine; ATTEND Family Medicine
DX: K57.91 Diverticulosis of intestine, part unspecified, without perforation or abscess with bleeding (principal); E87.2 Acidosis; D50.0 Iron deficiency anemia secondary to blood loss (chronic); G47.30 Sleep apnea, unspecified; I10 Essential (primary) hypertension; N40.0 Benign prostatic hyperplasia without lower urinary tract symptoms; E78.00 Pure hypercholesterolemia, unspecified; E78.5 Hyperlipidemia, unspecified; F41.9 Anxiety disorder, unspecified; M54.5 Low back pain; Z79.82 Long term (current) use of aspirin
CPT/HCPCS: 36415; 74174; 80048; 80053; 82728; 83540; 83550; 83605; 85007; 85014; 85018; 85025; 85027; 85610; 86850; 86900; 86901; 86920; 87081

== ENCOUNTER 2021-11-23 08:59 | Emergency (ER) | payer OTHER ==
[~2021-11-23 08:59] MED LIST changes: +ALPR0.5T7 PO; +CIPR-225 PO; +METR500T PO
--- NOTE | 2021-11-23 09:37 | ED Fall/Injury ---
General Chief Complaint: Trauma-Non Activation Stated Complaint: FALL, HEAD LACERATION, SHOULDER PAIN Source: patient, spouse Exam Limitations: no limitations History of Present Illness Date Seen by Provider: Nov 23, 2021 Time Seen by Provider: 09:20 Initial Comments Patient to the ER by private conveyance with his spouse and chief complaint that just prior to arrival he was playing pickle ball went over his head to get a shot and fell onto his right forehead and right shoulder pain. He had full use of his right shoulder with no previous injury. Now he has pain on abducting and flexing the right shoulder. Pain at the anterior glenohumeral joint line. He is having pain in a blunt laceration above the right eye that is dressed by nursing staff. A person that was witnessing his full remarks that he was unconscious for about 1 minute after the fall. He remembers everything up to the fall. No syncope prior to the fall. No chest pain shortness of air nausea vomiting diarrhea. He has a history of hypertension hyperlipidemia and colonic diverticulosis with bleeding. He is not on any blood thinners or antiplatelets. He does not anything for pain. He is not having any nausea vomiting fevers or chills. No tetanus vaccine in the past 5 years. Allergies and Home Medications Allergies Coded Allergies: No Known Drug Allergies (Unverified , 08/17/13) Patient Home Medication List Home Medication List Reviewed: Yes Alprazolam (Alprazolam) 0.5 Mg Tablet, 0.5 MG PO, (Reported) Entered as Reported by: TRAN SALAS on 07/18/20 0759 Amitriptyline HCl (Amitriptyline HCl) 25 Mg Tablet, 25-50 MG PO HS PRN for SLEEP, (Reported) Entered as Reported by: HEIDY REEVES on 01/24/17 1736 Amlodipine Besylate (Amlodipine Besylate) 10 Mg Tablet, 10 MG PO DAILY Prescribed by: SUGAR BANGURA on 07/18/20 1425 Atorvastatin Calcium (Atorvastatin Calcium) 80 Mg Tablet, 80 MG PO DAILY, (Reported) Entered as Reported by: JEFF LAINEZ on 01/24/17 1451 Cholecalciferol (Vitamin D3) (D3-2000) 50 Mcg Capsule, 50 MCG PO DAILY, (Reported) Entered as Reported by: ALEKSANDRA LOPEZ on 07/17/20 1025 Ciprofloxacin HCl (Cipro) 500 Mg Tablet, 500 MG PO BID Prescribed by: SUGAR BANGURA on 07/18/20 1425 Dutasteride (Dutasteride) 0.5 Mg Capsule, 0.5 MG PO DAILY, (Reported) Entered as Reported by: HEIDY REEVES on 01/24/17 1714 Metronidazole (Flagyl) 500 Mg Tablet, 500 MG PO BID Prescribed by: SUGAR BANGURA on 07/18/20 1425 Review of Systems Review of Systems Constitutional: No chills, No diaphoresis Eyes: Denies Blindness, Denies Blurred Vision Ears, Nose, Mouth, Throat: denies ear pain Respiratory: No cough, No dyspnea on exertion Cardiovascular: No chest pain, No palpitations Gastrointestinal: No abdominal pain, No nausea, No vomiting Genitourinary: No discharge, No dysuria Musculoskeletal: No back pain; joint pain (right shoulder) Past Ttrjxph-Xzcxxa-Yfrchb Hx Patient Social History Tobacco Use?: No Use of E-Cig and/or Vaping dev: No Substance use?: No Alcohol Use?: Yes Alcohol Frequency: Rarely Pt feels they are or have been: No Immunizations Up To Date Tetanus Booster (TDap): Unknown PED Vaccines UTD: No Influenza Vaccine Up-to-Date: Yes; Up-to-Date First/Initial COVID19 Vaccinat: YES Second COVID19 Vaccination Zeeshan: YES Third COVID19 Vaccination Date: YES COVID19 Vaccine Utilization Manager: JOSE MARTIN Seasonal Allergies Seasonal Allergies: No Past Medical History Surgery/Hospitalization HX: HTN, HLD, MEGHANN, ENLARGED PROSTATE, GI BLEEDS, DIVERTICULOSIS HERNIA SURGERY Surgeries: Yes (inguinal hernia repair x2, colonoscopy/EGD) Respiratory: Yes Sleep Apnea Currently Using CPAP: Yes Cardiac: Yes High Cholesterol, Hypertension Neurological: No Genitourinary: Yes (enlarged prostate) Prostate Problems Gastrointestinal: Yes Gastrointestinal Bleed, Diverticulosis, Hiatal Hernia Musculoskeletal: No Endocrine: No HEENT: No Cancer: No Psychosocial: Yes Sleep Difficulties Integumentary: No Blood Disorders: No Family Medical History Cancer, Diabetes, GI Disease Physical Exam Vital Signs Vital Signs - First Documented 11/23/21 09:11 Temp 37.0 Pulse 87 Resp 18 B/P (MAP) 129/89 (102) Capillary Refill : Height, Weight, BMI Height: 5'7.00" Weight: 187lbs. 0.0oz. 84.395709ax; 26.98 BMI Method:Stated General Appearance: WD/WN, no apparent distress HEENT: PERRL/EOMI, normal ENT inspection, TMs normal (Negative for tineo sign), pharynx normal, other (Blunt laceration approximately 2 cm linear into the subcutaneous tissue above the right eyebrow and lateral bordering the right religious.) Neck: full range of motion, normal inspection Cardiovascular: normal peripheral pulses, regular rate, rhythm Respiratory: lungs clear, normal breath sounds, no respiratory distress, no accessory muscle use Peripheral Pulses: 2+ Radial Pulses (R), 2+ Radial Pulses (L) Gastrointestinal: normal bowel sounds, non tender, soft Extremities: normal range of motion, normal capillary refill Neurologic/Psychiatric: alert, normal mood/affect, oriented x 3 Skin: normal color, warm/dry Ju[place]ino Coma Score Best Eye Response: (4) Open Spontaneously Best Verbal Response: (5) Oriented Best Motor Response: (6) Obeys Commands [place] Total: 15 Progress/Results/Core Measures Results/Orders My Orders Orders - ISABEL PHAN Ct Head/Cervical Spine Wo (11/23/21 09:31) Shoulder, Right, 3 Views (11/23/21 09:31) Lidocaine 1% Inj 20 Ml (Xylocaine 1% Inj (11/23/21 09:45) Dipht,Pertuss(Acell),Tet Adult (Boostrix (11/23/21 09:45) Hydrocodone/Apap 5/325 Tablet (Lortab 5 (11/23/21 11:45) Medications Given in ED Current Medications Medications Dose Ordered Sig/Casey Route Start Time Stop Time Status Last Admin Dose Admin Diphtheria/ Tetanus/Acell Pertussis 0.5 ml ONCE ONCE IM 11/23/21 09:45 11/23/21 09:46 DC 11/23/21 09:53 0.5 ML Vital Signs/I&O 11/23/21 09:11 Temp 37.0 Pulse 87 Resp 18 B/P (MAP) 129/89 (102) Progress Progress Note #1: Time: 09:36 Progress Note We will give him a tetanus vaccine, get a CT of his head and C-spine and an x- ray of his right shoulders. We will then closed the wounds with simple interrupted sutures. Progress Note #2: Time: 12:30 Progress Note Sutured his head closed. Put him in a sling. Hydrocodone for his pain. Return precautions. Concussion management counseled Diagnostic Imaging Diagonstic Imaging: CT Plain Films/CT/US/NM/MRI: c-spine, head Comments [facility] [place] [place] NAME: ANDRES MCKINNEY [facility] REC#: [id number] PT STATUS: REG ER : 1955 PHYSICIAN: ISABEL PHAN MD ADMIT DATE: 11/23/21/ER Draft Date of Exam:11/23/21 CT HEAD/CERVICAL SPINE WO PROCEDURE: CT head and CT cervical spine without contrast. TECHNIQUE: Multiple contiguous axial images were obtained through the brain and cervical spine without the use of intravenous contrast. Sagittal and coronal reformations through the cervical spine were then performed. Auto Exposure Controls were utilized during the CT exam to meet ALARA standards for radiation dose reduction. INDICATION: Trauma. Head injury. Loss of consciousness. COMPARISON: None. FINDINGS: CT HEAD: Scalp contusion overlying the right frontal convexity. No fractures. No intracranial hemorrhage, mass effect, hydrocephalus or extra-axial fluid collections. No CT evidence of a territorial infarction. Mild mucosal thickening in the right maxillary sinus. The mastoids are clear. CT cervical spine: Reversal of the normal cervical lordosis. Grade 1 retrolisthesis of C4 on C5. Nndr-xk-dvhxpzzr degenerative endplate changes at C4-C7. Vertebral body heights are preserved. No fractures. The lung apices are clear. Mild atherosclerotic calcifications in the carotid bifurcations. IMPRESSION: 1. Small contusion overlying the right frontal convexity. 2. No acute intracranial or cervical spine CT findings. Dictated on workstation # [id number] Dict: 11/23/21 1027 Trans: 11/23/21 [facility] LILIANA [id number] Interpreted by: DIONY VERA MD Electronically signed by: Reviewed: Reviewed by Me Diagonstic Imaging: Xray Plain Films/CT/US/NM/MRI: other Comments [facility] [place], [place] NAME: ANDRES MCKINNEY [facility] REC#: [id number] PT STATUS: REG ER : 1955 PHYSICIAN: ISABEL PHAN MD ADMIT DATE: 11/23/21/ER Draft Date of Exam:11/23/21 SHOULDER, RIGHT, 3 VIEWS CLINICAL INDICATION: Patient fell on right shoulder and forehead while playing pickle ball about 30 minutes prior to arrival. EXAM: X-ray of the right shoulder, 3 views. COMPARISON: CT scan of the neck soft tissues with and without contrast dated 05/30/2014. FINDINGS: There is concern for an acute fracture involving the lateral aspect of the right clavicle with the lateral fracture fragment displaced superiorly. There are severely hypertrophic spurs involving the right humeral head/neck junction region. There is severe joint space narrowing of the glenohumeral joint. There is sclerosis of the glenohumeral joint region. There is mild spurring of the right acromioclavicular region and inferior glenoid region. There is a small calcifications seen superior to the right glenohumeral joint. IMPRESSION: 1: There is a displaced fracture involving the lateral aspect of the right clavicle. 2: There is severe degenerative disease of the right shoulder. Dictated on workstation # [id number] Dict: 11/23/21 1035 Trans: 11/23/21 1040 [id number] Interpreted by: CINDY IVERSON MD Electronically signed by: Reviewed: Reviewed by Me Departure Impression Primary Impression: Fall Qualified Codes: W19.XXXA - Unspecified fall, initial encounter Additional Impressions: Scalp laceration Qualified Codes: S01.01XA - Laceration without foreign body of scalp, initial encounter Displaced fracture of lateral end of clavicle Qualified Codes: S42.031A - Displaced fracture of lateral end of right clavicle, initial encounter for closed fracture Disposition: HOME, SELF-CARE Condition: Stable Departure-Patient Inst. Decision time for Depature: 12:42 Referrals: BENY ALY MD (PCP/Family) Primary Care Physician DESHAWN JUNG MD, MICHAEL P MD Patient Instructions: Laceration Repair With Stitches (DC), Concussion, Adult (DC) Add. Discharge Instructions: Keep the wounds clean with regular soap and water. Apply ice 20 minutes on every 2 hours for the first 2 to 3 days to reduce swelling and pain. Keep the right arm in the sling except to bathe. Is okay to take it out and move your arm around a little bit throughout the day to keep it from freezing. Follow-up with the orthopedic surgeon of your choice in the next 5 to 7 days for reexamination. Tylenol 1000 mg every 8 hours as needed for pain. Hydrocodone 1 tablet every 6 hours needed for severe pain. Hydrocodone will cause drowsiness and constipation. Do not mix with alcohol or long road trips. Topical creams such as icy hot or Biofreeze may be helpful for pain. Return to emergency room in 7 to 10 days to have the sutures removed. If you have increasing redness, swelling or discharge from the wound especially with fever or nausea then this may be indication of infection and you should return to the doctor for reexamination. If you have symptoms of concussion which include sleepiness, headache, irritability, nausea or problems with your balance then you need to get some sleep. Take appropriate medications. Ondansetron 1 tablet every 6 hours needed for nausea or vomiting. All discharge instructions reviewed with patient and/or family. Voiced understanding. Scripts Ondansetron (Ondansetron Odt) 4 Mg Tab.rapdis 4 MG PO Q6H PRN for NAUSEA/VOMITING, #8 TAB 0 Refills Prov: ISABEL PHAN 11/23/21 Hydrocodone/Acetaminophen (Hydrocodone-Acetamin 5-325 mg) 5 Mg-325 Mg Tablet 1 TAB PO Q6H PRN for PAIN-MODERATE (5-7), #15 TAB 0 Refills Prov: ISABEL PHAN 11/23/21 Copy Copies To 1: DESHAWN JUNG MD; TAD PARTIDA MD, TITUS J Nov 23, 2021 09:37
[2021-11-23] MEDS ORDERED: LIDOCAINE 1% INJ 20 ML VIAL INJ ONE (09:45)
[2021-11-23] MEDS ORDERED: TETANUS,DIPTH,PERTUSS P/F (BOOSTRIX) 0.5 ML VIAL IM ONE (09:45)
--- NOTE | 2021-11-23 10:37 | Diagnostic Imaging Report ---
PROCEDURE: CT head and CT cervical spine without contrast. TECHNIQUE: Multiple contiguous axial images were obtained through the brain and cervical spine without the use of intravenous contrast. Sagittal and coronal reformations through the cervical spine were then performed. Auto Exposure Controls were utilized during the CT exam to meet ALARA standards for radiation dose reduction. INDICATION: Trauma. Head injury. Loss of consciousness. COMPARISON: None. FINDINGS: CT HEAD: Scalp contusion overlying the right frontal convexity. No fractures. No intracranial hemorrhage, mass effect, hydrocephalus or extra-axial fluid collections. No CT evidence of a territorial infarction. Mild mucosal thickening in the right maxillary sinus. The mastoids are clear. CT cervical spine: Reversal of the normal cervical lordosis. Grade 1 retrolisthesis of C4 on C5. Rchn-en-wusjayoa degenerative endplate changes at C4-C7. Vertebral body heights are preserved. No fractures. The lung apices are clear. Mild atherosclerotic calcifications in the carotid bifurcations. IMPRESSION: 1. Small contusion overlying the right frontal convexity. 2. No acute intracranial or cervical spine CT findings. Dictated by: Dictated on workstation # [id number]
--- NOTE | 2021-11-23 10:40 | Diagnostic Imaging Report ---
CLINICAL INDICATION: Patient fell on right shoulder and forehead while playing pickle ball about 30 minutes prior to arrival. EXAM: X-ray of the right shoulder, 3 views. COMPARISON: CT scan of the neck soft tissues with and without contrast dated 05/30/2014. FINDINGS: There is concern for an acute fracture involving the lateral aspect of the right clavicle with the lateral fracture fragment displaced superiorly. There are severely hypertrophic spurs involving the right humeral head/neck junction region. There is severe joint space narrowing of the glenohumeral joint. There is sclerosis of the glenohumeral joint region. There is mild spurring of the right acromioclavicular region and inferior glenoid region. There is a small calcifications seen superior to the right glenohumeral joint. IMPRESSION: 1: There is a displaced fracture involving the lateral aspect of the right clavicle. 2: There is severe degenerative disease of the right shoulder. Dictated by: Dictated on workstation # [id number]
[2021-11-23] MEDS ORDERED: HYDROcodone/APAP 5 MG/325 MG (LORTAB) TAB PO ONE (11:45)
[2021-11-23] MEDS ORDERED: ONDA4TAB11 PO (12:48)
[2021-11-23] MEDS ORDERED: ACHD5005 PO (12:48)
[2021-11-23 13:00] VITALS: BP 125/83
== END 2021-11-23 13:01 | disposition home or self-care (01) ==
LOC: EDUNIT# 08:59 → ER 09:03
DX: S42.031A Displaced fracture of lateral end of right clavicle, initial encounter for closed fracture (principal); S01.01XA Laceration without foreign body of scalp, initial encounter; G47.30 Sleep apnea, unspecified; Z99.89 Dependence on other enabling machines and devices; Z23 Encounter for immunization; W18.39XA Other fall on same level, initial encounter; Y93.73 Activity, racquet and hand sports
CPT/HCPCS: 12011; 70450; 72125; 73030; 90715